=== PATIENT | male | born 1930 | race Caucasian/White ===

== ENCOUNTER 2017-08-22 13:40 | Emergency (ER) | payer MEDICARE, OTHER ==
[2017-08-22 13:54] VITALS: BP 144/74
[2017-08-22] MEDS ORDERED: predniSONE 20 MG Tab PO ONE (16:04)
--- NOTE | 2017-08-22 16:05 | EDM.PDOC ---
ED HPI GENERAL MEDICAL PROBLEM - General Chief Complaint: Lower Extremity Injury/Pain Stated Complaint: HIP PAIN Time Seen by Provider: 08/22/17 13:55 Source of Information: Reports: Patient, RN Notes Reviewed - History of Present Illness INITIAL COMMENTS - FREE TEXT/NARRATIVE: 87-year-old male comes in with bilateral hip and bilateral low back discomfort. Have history of osteoarthritis he has had previous right hip replacement quite a few years ago. There's been no recent fall. In having worsening pain that he he believes is related to his hips. However when asked where the discomfort is he points to his bilateral low back with discomfort that then radiates around to the groin area of both hips. The pain is especially bad if he tries to twist or torn when standing or walking. Dates that if he is very careful with his movement, does not twist or turn then he "does okay". He already is taking Tylenol twice a day. He is further cortisone injections can be quite helpful and that is what he would like today to "get rid of his pain". He states he does take occasional Aleve and that we'll give him good relief for a day or so but he does not feel comfortable taking that on a regular basis. Of note he is already on antacid medication for his stomach. he is on multiple meds for hypertension and also on Plavix in addition to a few other medications as well, see complete list for details. Bilateral Hip Pain Score (Numeric/FACES): 3 - Related Data Allergies Allergy/AdvReac Type Severity Reaction Status Date / Time No Known Allergies Allergy Verified 08/22/17 13:53 Home Meds: Home Meds Furosemide [Lasix] 20 mg PO DAILY 03/27/14 [History] Levothyroxine [Synthroid] 75 mcg PO DAILY 03/27/14 [History] Losartan [Cozaar] 50 mg PO DAILY 03/27/14 [History] Sertraline [Zoloft] 50 mg PO DAILY 03/27/14 [History] Gabapentin 600 mg PO BEDTIME 03/19/15 [History] Acetaminophen/Diphenhydramine [Tylenol Pm Ex-Strength Caplet] 2 tab PO BEDTIME 08/22/17 [History] Aspirin 325 mg PO DAILY 08/22/17 [History] Carvedilol [Coreg] 3.125 mg PO BID 08/22/17 [History] Clopidogrel [Plavix] 75 mg PO DAILY 08/22/17 [History] Docusate Sodium [Colace] 200 mg PO DAILY 08/22/17 [History] Ferrous Sulfate 325 mg PO DAILY 08/22/17 [History] Isosorbide Mononitrate [Ismo] 30 mg PO BEDTIME 08/22/17 [History] Magnesium Hydroxide [Milk of Magnesia] 5 ml PO DAILY PRN 08/22/17 [History] Pantoprazole [ProTONIX] 40 mg PO BID 08/22/17 [History] Prednisone [IJD: predniSONE] 20 mg PO QAM #7 tab 08/22/17 [Rx] Rosuvastatin Calcium 20 mg PO DAILY 08/22/17 [History] Tamsulosin [Flomax] 0.4 mg PO BEDTIME 08/22/17 [History] Past Medical History HEENT History: Reports: Impaired Vision Other HEENT History: reading glasses Cardiovascular History: Reports: Angina, High Cholesterol, Hypertension, Other ( See Below) Other Cardiovascular History: atherosclerotic heart disease Respiratory History: Reports: PE Gastrointestinal History: Reports: GERD, Inflammatory Bowel Disease Other Gastrointestinal History: colitis, hernia Genitourinary History: Reports: Chronic Renal Insuffiency Musculoskeletal History: Reports: None Psychiatric History: Reports: Depression Endocrine/Metabolic History: Reports: Hypothyroidism, Obesity/BMI 30+ - Past Surgical History HEENT Surgical History: Reports: Cataract Surgery Respiratory Surgical History: Reports: None GI Surgical History: Reports: Appendectomy, Cholecystectomy, Hernia, Abdominal Endocrine Surgical History: Reports: None Musculoskeletal Surgical History: Reports: Hip Replacement Social & Family History - Family History Family Medical History: Noncontributory - Tobacco Use Smoking Status *Q: Former Smoker Years of Tobacco use: 6 Packs/Tins Daily: 0.5 Used Tobacco, but Quit: Yes Month Tobacco Last Used: 60 years Second Hand Smoke Exposure: No - Caffeine Use Caffeine Use: Reports: Coffee Other Caffeine Use: one daily - Alcohol Use Days Per Week of Alcohol Use: 0 - Recreational Drug Use Recreational Drug Use: No Review of Systems - Review of Systems Review Of Systems: See Below Constitutional: Denies: Chills, Fever Mouth/Throat: Reports: No Symptoms Respiratory: Reports: Shortness of Breath (insertional) Cardiovascular: Denies: Chest Pain GI/Abdominal: Denies: Abdominal Pain, Nausea, Vomiting Musculoskeletal: Reports: Back Pain, Joint Pain (bilateral low backbilateral hip ) Skin: Reports: No Symptoms Neurological: Denies: Trouble Speaking, Weakness ED EXAM, GENERAL - Physical Exam Exam: See Below General Appearance: Alert, No Apparent Distress Throat/Mouth: Normal Inspection, Normal Oropharynx Head: Atraumatic. No: Facial Swelling Neck: Supple, Full Range of Motion Respiratory/Chest: No Respiratory Distress, Lungs Clear, Normal Breath Sounds Cardiovascular: Regular Rate, Rhythm GI/Abdominal: Soft, Non-Tender Back Exam: Paraspinal Tenderness (there is some tenderness of his bilateral low back over the sacroiliac joint area bilaterally). No: Vertebral Tenderness Extremities: Normal Range of Motion (good hip range of motion bilaterally with minimal discomfort), Pedal Edema (trace bilateral). No: Leg Pain (he is nontender over the hips) Neurological: Oriented, No Motor/Sensory Deficits Skin Exam: Warm, Dry, Normal Color Course - Vital Signs Last Recorded V/S: Last Vital Signs Temp 97.6 F 08/22/17 13:48 Pulse 69 08/22/17 13:48 Resp 20 08/22/17 13:48 BP 144/74 H 08/22/17 13:48 Pulse Ox 90 L 08/22/17 13:48 - Orders/Labs/Meds Orders: Active Orders 24 hr Category Date Time Status Hip Min 2V or 3V Lt [CR] Stat Exams 08/22/17 14:16 Taken Hip Min 2V or 3V Rt [CR] Stat Exams 08/22/17 14:16 Taken Meds: Medications Discontinued Medications Generic Name Dose Route Start Last Admin Trade Name Tony PRN Reason Stop Dose Admin Hydrocodone Bitart/Acetaminophen 1 tab 08/22/17 16:39 08/22/17 16:48 Empire 325-5 Mg PO 08/22/17 16:40 1 tab ONETIME ONE Administration Prednisone 40 mg 08/22/17 16:04 08/22/17 16:11 Prednisone PO 08/22/17 16:05 40 mg ONETIME ONE Administration - Re-Assessments/Exams Free Text/Narrative Re-Assessment/Exam: 08/22/17 16:03 x-rays show right total hip with no apparent abnormality, left hip shows some very mild degenerative change nothing that looks super severe. Is inquiring about getting cortisone shots. With informed him that I do not do that procedure but will start him on some oral prednisone for now. We'll see if we can get an appointment for him to see Dr. Brown, his Orthopedist. 08/22/17 17:20. we were able to get him appointment for next week, August 29 8: 15 AM he is requesting something more powerful for pain, have provided a prescription for hydrocodone 03/28/25 to take one half tablet every 8-12 hours if needed for severe pain. Departure - Departure Time of Disposition: 16:21 Disposition: Home, Self-Care 01 Condition: Fair Clinical Impression: Hip pain, bilateral Low back pain Qualifiers: Chronicity: acute Back pain laterality: bilateral Sciatica presence: without sciatica Qualified Code(s): M54.5 - Low back pain - Discharge Information Prescriptions: Prednisone [IJD: predniSONE] 20 mg PO QAM #7 tab Instructions: Hip Pain, Back Pain, Adult Referrals: Anton Jones MD [Primary Care Provider] - Forms: ED Department Discharge Additional Instructions: continue to use walker, continue Tylenol 1000 mg twice daily, prednisone as prescribed. You've been given 40 mg orally while here in the ED today, then take 20 mg every morning starting tomorrow for [address] Brown, Orthopedist next August 29, 8:15 AM. You may take hydrocodone one half tablet every 8 hours are up to 3 times daily if needed for severe pain not relieved by Tylenol and the newly prescribed prednisone. - My Orders Last 24 Hours: My Active Orders 08/22/17 14:16 Hip Min 2V or 3V Lt [CR] Stat Hip Min 2V or 3V Rt [CR] Stat - Assessment/Plan Last 24 Hours: My Active Orders 08/22/17 14:16 Hip Min 2V or 3V Lt [CR] Stat Hip Min 2V or 3V Rt [CR] Stat
[2017-08-22] MEDS ORDERED: Acetaminophen/HYDROcodone 325-5 MG Tab PO ONE (16:39)
--- NOTE | 2017-08-24 07:58 | CR ---
Right hip: AP and frog leg lateral views of the right hip were obtained. Comparison: Previous right hip study of 10/06/15. Right hip prosthesis is seen. Components are aligned. Orthopedic screws seen within the superior acetabulum. Plate is identified along the lateral aspect of the proximal femur. These findings are stable. Nothing acute is identified. Impression: 1. Stable right hip prosthesis and other stable orthopedic hardware. 2. Nothing acute is appreciated on two-view right hip exam. Diagnostic code #2
--- NOTE | 2017-08-24 08:52 | CR ---
Left hip: AP and frog-leg lateral views of the left hip were obtained. Comparison: No prior left hip exam. Joint space within the left hip is preserved. No fracture or other bony abnormality is identified. Impression: 1. No abnormality is identified on two-view left hip exam. Diagnostic code #1
== END 2017-08-22 17:10 | disposition home or self-care (01) ==
LOC: JD.ED 13:40
DX: M25.551 Pain in right hip (principal); M25.552 Pain in left hip; M54.5 Low back pain; I12.9 Hypertensive chronic kidney disease with stage 1 through stage 4 chronic kidney disease, or unspecified chronic kidney disease; N18.9 Chronic kidney disease, unspecified; K21.9 Gastro-esophageal reflux disease without esophagitis; E03.9 Hypothyroidism, unspecified; E66.9 Obesity, unspecified; E78.00 Pure hypercholesterolemia, unspecified; Z86.711 Personal history of pulmonary embolism; Z98.49 Cataract extraction status, unspecified eye; Z90.49 Acquired absence of other specified parts of digestive tract; Z96.649 Presence of unspecified artificial hip joint; Z98.890 Other specified postprocedural states; Z87.891 Personal history of nicotine dependence; Z79.02 Long term (current) use of antithrombotics/antiplatelets; Z79.899 Other long term (current) drug therapy
CPT/HCPCS: 73502; 99283; A9270

== ENCOUNTER 2017-08-31 02:11 | Inpatient (IN) | payer MEDICARE, OTHER ==
[2017-08-31] MEDS ORDERED: Sodium Chloride 0.9% 1,000 ML IV ONE ×2 (03:03→04:22)
--- NOTE | 2017-08-31 03:03 | EDM.PDOC ---
ED HPI GENERAL MEDICAL PROBLEM - General Chief Complaint: Gastrointestinal Problem Stated Complaint: [facility] Time Seen by Provider: 08/31/17 02:33 Source of Information: Reports: Patient, RN Notes Reviewed History Limitations: Reports: Physical Impairment (Hard of hearing) - History of Present Illness INITIAL COMMENTS - FREE TEXT/NARRATIVE: The patient states that he passed dark red blood, mixed with stool, around 17: 00 tonight. He had a second episode sometime later. He has had some abdominal cramps, but has not had any diarrhea. He denies dyspnea, chest pain, or lightheadedness. The patient reports to similar episodes in the past, but he is not sure when, other than "years ago". He states that a workup was done both times, but the cause of the bleeding was not found. The patient has a history of ulcerative colitis, but states that these symptoms are distinctly different than an ulcerative colitis flare. The patient states that he was just started on nabumetone per Dr. Rodriguez. He took his first dose yesterday morning, and a second dose tonight. The patient's PCP is Dr. Jones. Lower Abdomen Pain Score (Numeric/FACES): 8 - Related Data Allergies Allergy/AdvReac Type Severity Reaction Status Date / Time No Known Allergies Allergy Verified 08/22/17 13:53 Home Meds: Home Meds Furosemide [Lasix] 20 mg PO DAILY 03/27/14 [History] Levothyroxine [Synthroid] 75 mcg PO DAILY 03/27/14 [History] Losartan [Cozaar] 50 mg PO DAILY 03/27/14 [History] Sertraline [Zoloft] 50 mg PO DAILY 03/27/14 [History] Gabapentin 600 mg PO BEDTIME 03/19/15 [History] Acetaminophen/Diphenhydramine [Tylenol Pm Ex-Strength Caplet] 2 tab PO BEDTIME 08/22/17 [History] Aspirin 325 mg PO DAILY 08/22/17 [History] Carvedilol [Coreg] 3.125 mg PO BID 08/22/17 [History] Clopidogrel [Plavix] 75 mg PO DAILY 08/22/17 [History] Docusate Sodium [Colace] 200 mg PO DAILY 08/22/17 [History] Ferrous Sulfate 325 mg PO DAILY 08/22/17 [History] Isosorbide Mononitrate [Ismo] 30 mg PO BEDTIME 08/22/17 [History] Magnesium Hydroxide [Milk of Magnesia] 5 ml PO DAILY PRN 08/22/17 [History] Pantoprazole [ProTONIX] 40 mg PO BID 08/22/17 [History] Rosuvastatin Calcium 20 mg PO DAILY 08/22/17 [History] Tamsulosin [Flomax] 0.4 mg PO BEDTIME 08/22/17 [History] Nabumetone 500 gm PO BID 08/31/17 [History] Past Medical History HEENT History: Reports: Impaired Vision Other HEENT History: reading glasses Cardiovascular History: Reports: High Cholesterol, Hypertension Respiratory History: Reports: PE Gastrointestinal History: Reports: GERD, GI Bleed, Inflammatory Bowel Disease ( Ulcerative colitis) Genitourinary History: Reports: BPH Psychiatric History: Reports: Depression Endocrine/Metabolic History: Reports: Hypothyroidism, Obesity/BMI 30+ - Past Surgical History HEENT Surgical History: Reports: Cataract Surgery GI Surgical History: Reports: Appendectomy, Cholecystectomy, Hernia, Abdominal Musculoskeletal Surgical History: Reports: Hip Replacement (right) Social & Family History - Family History Family Medical History: Noncontributory - Tobacco Use Smoking Status *Q: Former Smoker Years of Tobacco use: 6 Packs/Tins Daily: 0.5 Month Tobacco Last Used: 0 Second Hand Smoke Exposure: No - Caffeine Use Caffeine Use: Reports: Coffee Other Caffeine Use: one daily - Alcohol Use Alcohol Use History: Yes Alcohol Use Frequency: Socially - Recreational Drug Use Recreational Drug Use: No - Living Situation & Occupation Living situation: Reports: , Assisted Living ([facility]) Occupation: Retired ED ROS GENERAL - Review of Systems Review Of Systems: See Below Constitutional: Reports: No Symptoms HEENT: Reports: No Symptoms Respiratory: Reports: No Symptoms Cardiovascular: Reports: No Symptoms Endocrine: Reports: No Symptoms GI/Abdominal: Reports: No Symptoms : Reports: No Symptoms Musculoskeletal: Reports: No Symptoms Skin: Reports: No Symptoms Neurological: Reports: No Symptoms Psychiatric: Reports: No Symptoms Hematologic/Lymphatic: Reports: No Symptoms Immunologic: Reports: No Symptoms ED EXAM, GI/ABD - Physical Exam Exam: See Below Exam Limited By: No Limitations General Appearance: Alert, WD/WN, No Apparent Distress Eyes: Bilateral: Normal Appearance, EOMI Ears: Normal External Exam, Hearing Grossly Normal Nose: Normal Inspection, No Blood Throat/Mouth: Normal Inspection, Normal Lips, Normal Voice, No Airway Compromise Head: Atraumatic, Normocephalic Neck: Normal Inspection, Full Range of Motion Respiratory/Chest: No Respiratory Distress, Lungs Clear, Normal Breath Sounds, No Accessory Muscle Use Cardiovascular: Normal Peripheral Pulses, Regular Rate, Rhythm, No Gallop, No JVD, No Murmur, No Rub GI/Abdominal Exam: Normal Bowel Sounds, Soft, Non-Tender, No Organomegaly, No Distention, No Abnormal Bruit, No Mass, Pelvis Stable, Other (Obese) (Male) Exam: Deferred Rectal (Males) Exam: Normal Rectal Tone, Bloody Stool, Heme + Stool, Hemorrhoids (non-thrombosed, on left) Back Exam: Normal Inspection, Full Range of Motion. No: CVA Tenderness (L), CVA Tenderness (R) Extremities: Normal Inspection, Normal Range of Motion, Normal Capillary Refill Neurological: Alert, Oriented, Normal Cognition, No Motor/Sensory Deficits Psychiatric: Normal Affect Skin Exam: Warm, Dry, Intact, Normal Color, No Rash Course - Vital Signs Last Recorded V/S: Last Vital Signs Temp 36.4 C 08/31/17 02:14 Pulse 77 08/31/17 02:14 Resp 16 08/31/17 02:14 BP 130/62 08/31/17 02:14 Pulse Ox 93 L 08/31/17 02:14 Orthostatic Blood Pressure [ 128/64 Standing] Orthostatic Blood Pressure [ 113/69 Sitting] Orthostatic Blood Pressure [ 95/71 Supine] - Orders/Labs/Meds Orders: Active Orders 24 hr Category Date Time Status Orthostatic Vital Signs [RC] STAT Care 08/31/17 02:55 Active Orthostatic Vital Signs [RC] STAT Care 08/31/17 03:03 Active Orthostatic Vital Signs [RC] STAT Care 08/31/17 04:22 Active Labs: Laboratory Tests 08/31/17 08/31/17 08/31/17 Range/Units 02:30 02:30 02:30 WBC 11.33 H (4.23-9.07) K/mm3 RBC 5.01 (4.63-6.08) M/mm3 Hgb 13.8 (13.7-17.5) gm/L Hct 43.6 (40.1-51.0) % MCV 87.0 (79.0-92.2) fl MCH 27.5 (25.7-32.2) pg MCHC 31.7 L (32.2-35.5) g/dl RDW Std Deviation 47.3 H (35.1-43.9) fL Plt Count 251 (163-337) K/mm3 MPV 10.5 (9.4-12.3) fl Neutrophils % (Manual) 74 H (40-60) % Band Neutrophils % 0 (0-10) % Lymphocytes % (Manual) 24 (20-40) % Atypical Lymphs % 0 % Monocytes % (Manual) 2 (2-10) % Eosinophils % (Manual) 0 L (0.8-7.0) % Basophils % (Manual) 0 L (0.2-1.2) Platelet Estimate Adequate RBC Morph Comment Normal PT 11.1 (8.0-13.0) SECONDS INR 1.02 APTT 29 (22-36) SECONDS Sodium 143 (136-145) mEq/L Potassium 4.7 (3.5-5.1) mEq/L Chloride 108 H (98-107) mEq/L Carbon Dioxide 27 (21-32) mEq/L Anion Gap 12.7 (5-15) BUN 36 H (7-18) mg/dL Creatinine 1.6 H (0.7-1.3) mg/dL Est Cr Clr Drug Dosing 28.80 mL/min Estimated GFR (MDRD) 41 (>60) mL/min BUN/Creatinine Ratio 22.5 H (14-18) Glucose 132 H (83-115) mg/dL Calcium 8.1 L (8.5-10.1) mg/dL Total Bilirubin 0.6 (0.2-1.0) mg/dL AST 17 (15-37) U/L ALT 16 (16-63) U/L Alkaline Phosphatase 61 (46-116) U/L Total Protein 6.1 L (6.4-8.2) g/dl Albumin 2.9 L (3.4-5.0) g/dl Globulin 3.2 gm/dL Albumin/Globulin Ratio 0.9 L (1-2) Meds: Medications Discontinued Medications Generic Name Dose Route Start Last Admin Trade Name Freq PRN Reason Stop Dose Admin Sodium Chloride 1,000 mls @ 999 mls/hr 08/31/17 03:03 08/31/17 03:09 Normal Saline IV 08/31/17 04:03 999 mls/hr ONETIME ONE Administration Sodium Chloride 1,000 mls @ 999 mls/hr 08/31/17 04:22 08/31/17 04:25 Normal Saline IV 08/31/17 05:22 999 mls/hr ONETIME ONE Administration - Re-Assessments/Exams Free Text/Narrative Re-Assessment/Exam: 08/31/17 03:02 The patient is orthostatic. I will order IV fluid bolus and recheck orthostatics. 08/31/17 04:23 Following 1 L of normal saline, the patient is still orthostatic. I have ordered a second liter of normal saline, and repeat orthostatics. 08/31/17 05:33 After a second liter of normal saline, the patient is no longer orthostatic. 08/31/17 05:35 The patient's BUN/Cr is modestly elevated at 36/1.6. It was similar at 20/1.6 on 12/12/2016. Case discussed with Dr. Serna at 05:34. He agrees to admit the patient to telemetry. I will order a CBC for the morning. Departure - Departure Time of Disposition: 05:36 Disposition: Admitted As Inpatient 65 Condition: Fair Clinical Impression: Lower GI bleed, Orthostatic hypotension - Discharge Information Referrals: PCP,None [Primary Care Provider] - - My Orders Last 24 Hours: My Active Orders 08/31/17 02:55 Orthostatic Vital Signs [RC] STAT 08/31/17 03:03 Orthostatic Vital Signs [RC] STAT 08/31/17 04:22 Orthostatic Vital Signs [RC] STAT - Assessment/Plan Last 24 Hours: My Active Orders 08/31/17 02:55 Orthostatic Vital Signs [RC] STAT 08/31/17 03:03 Orthostatic Vital Signs [RC] STAT 08/31/17 04:22 Orthostatic Vital Signs [RC] STAT
[2017-08-31] MEDS ORDERED: LORazepam 2 MG/ML MDV IV PRN (07:04)
[2017-08-31] MEDS ORDERED: Albuterol 0.083% 2.5 MG/3 ML Neb Soln NEB PRN (07:04)
[2017-08-31] MEDS ORDERED: Promethazine 12.5 MG in Sodium Chloride 0.9% 50 ML IV PRN (07:04)
[2017-08-31] MEDS ORDERED: HYDROmorphone 0.5 MG/0.5 ML Syringe IVPUSH PRN (07:04)
[2017-08-31] MEDS ORDERED: Acetaminophen 325 MG Tab PO PRN (07:04)
[2017-08-31] MEDS ORDERED: Ondansetron 4 MG/2 ML SDV IV PRN (07:04)
[2017-08-31] MEDS ORDERED: Magnesium Hydroxide 400 MG/5 ML Susp 30 ML Cup PO PRN (07:08)
--- NOTE | 2017-08-31 07:12 | PCM.HP ---
H&P History of Present Illness - General Date of Service: 08/31/17 Admit Problem/Dx: Admission Diagnosis/Problem Admission Diagnosis/Problem GI bleed not requiring more than 4 units of blood in 24 hours, ICU, or surgery Source of Information: Patient, Family, Old Records, Provider, RN Notes Reviewed History Limitations: Reports: No Limitations - History of Present Illness Initial Comments - Free Text/Narative: This is an 87 year old elderly pleasant white male with past medical history of impaired vision, hypertension, hypercholesterolemia, history of PE, GERD, history of GI bleed, non-specific colitis, hypothyroidism, BPH, depression, and obesity who presents to the emergency department with complains of rectal bleed that started last night. He had 2 episode of rectal bleed prior to presentation to the emergency department and again while he was being evaluated in ED. He reports some abdominal cramps but denies any diarrhea or constipation. No shortness of breath, chest pain, dizziness, or lightheadedness. Patient carries a past medical history of GI bleed. He underwent upper and lower endoscopy in [address] Enamorado with findings of gastritis, GERD , diverticulosis, nonspecific colitis, and external hemorrhoids. According to patient he has done well since then. His acute rectal bleed just started yesterday after he to took an NSAID (Nabumetone) that was prescribed to him by specialist for his chronic OA/DJD. His risk factor includes being on dual antiplatelet therapy for his recent stent placement 4 done earlier this year in [facility]. He is not on any anti-coags. His initial workup in the emergency department shows a CBC remarkable for WBC of 11.33, MCHC of 31.7, and neutrophils of 74%. His chemistry is remarkable for chloride of 108, BUN of 36, creatinine 1.6, glucose of 132, calcium 8.1, total protein of 6.1, and albumin of 2.9. He was positive for orthostatic hypotension on initial assessment in the emergency department. Patient received initial resuscitation in the emergency department before he was sent to the floor for further management. He is being admitted for management acute GI bleed. He is DNR/DNI. Lower Abdomen Pain Score (Numeric/FACES): 8 - Related Data Allergies/Adverse Reactions: Allergies Allergy/AdvReac Type Severity Reaction Status Date / Time No Known Allergies Allergy Verified 08/22/17 13:53 Home Medications: Home Meds Furosemide [Lasix] 20 mg PO DAILY 03/27/14 [History] Levothyroxine [Synthroid] 75 mcg PO DAILY 03/27/14 [History] Losartan [Cozaar] 50 mg PO DAILY 03/27/14 [History] Sertraline [Zoloft] 50 mg PO DAILY 03/27/14 [History] Gabapentin 600 mg PO BEDTIME 03/19/15 [History] Acetaminophen/Diphenhydramine [Tylenol Pm Ex-Strength Caplet] 2 tab PO BEDTIME 08/22/17 [History] Aspirin 325 mg PO DAILY 08/22/17 [History] Carvedilol [Coreg] 3.125 mg PO BID 08/22/17 [History] Clopidogrel [Plavix] 75 mg PO DAILY 08/22/17 [History] Docusate Sodium [Colace] 200 mg PO DAILY 08/22/17 [History] Ferrous Sulfate 325 mg PO DAILY 08/22/17 [History] Isosorbide Mononitrate [Ismo] 30 mg PO BEDTIME 08/22/17 [History] Magnesium Hydroxide [Milk of Magnesia] 5 ml PO DAILY PRN 08/22/17 [History] Pantoprazole [ProTONIX] 40 mg PO BID 08/22/17 [History] Rosuvastatin Calcium 20 mg PO DAILY 08/22/17 [History] Tamsulosin [Flomax] 0.4 mg PO BEDTIME 08/22/17 [History] Nabumetone 500 gm PO BID 08/31/17 [History] Past Medical History HEENT History: Reports: Impaired Vision Other HEENT History: reading glasses Cardiovascular History: Reports: High Cholesterol, Hypertension Other Cardiovascular History: atherosclerotic heart disease Respiratory History: Reports: PE Gastrointestinal History: Reports: GERD, GI Bleed, Inflammatory Bowel Disease ( Ulcerative colitis) Other Gastrointestinal History: colitis, hernia Genitourinary History: Reports: BPH Musculoskeletal History: Reports: None Psychiatric History: Reports: Depression Endocrine/Metabolic History: Reports: Hypothyroidism, Obesity/BMI 30+ - Past Surgical History HEENT Surgical History: Reports: Cataract Surgery GI Surgical History: Reports: Appendectomy, Cholecystectomy, Hernia, Abdominal Musculoskeletal Surgical History: Reports: Hip Replacement (right) Social & Family History - Family History Family Medical History: Noncontributory - Tobacco Use Smoking Status *Q: Never Smoker Years of Tobacco use: 6 Packs/Tins Daily: 0.5 Used Tobacco, but Quit: Yes Month Tobacco Last Used: 0 Second Hand Smoke Exposure: No - Caffeine Use Caffeine Use: Reports: Coffee Other Caffeine Use: one daily - Alcohol Use Days Per Week of Alcohol Use: 0 - Recreational Drug Use Recreational Drug Use: No - Living Situation & Occupation Living situation: Reports: , Assisted Living ([facility]) Occupation: Retired H&P Review of Systems - Review of Systems: Review Of Systems: See Below General: Denies: Fever, Chills, Malaise, Weakness, Fatigue HEENT: Reports: No Symptoms Pulmonary: Denies: Shortness of Breath Cardiovascular: Denies: Chest Pain Gastrointestinal: Reports: Other (Belly ache lower abdomen). Denies: Abdominal Pain, Nausea, Vomiting Genitourinary: Reports: Frequency, Urgency Musculoskeletal: Reports: Back Pain, Leg Pain (calves), Joint Pain, Other (Hip Pain) Skin: Denies: Cyanosis, Mottled, Pallor, Diaphoresis, Bruising, Pruritis, Rash, Erythema Psychiatric: Denies: Depression, Anxiety, Agitation, Hallucinations Neurological: Denies: Confusion, Dizziness, Syncope, Difficulty Walking, Weakness, Gait Disturbance Hematologic/Lymphatic: Denies: Anemia, Easy Bleeding Immunologic: Reports: No Symptoms Exam - Exam Exam: See Below - Vital Signs Vital Signs: Last Vital Signs Temp 36.4 C 08/31/17 02:14 Pulse 77 08/31/17 02:14 Resp 16 08/31/17 02:14 BP 130/62 08/31/17 02:14 Pulse Ox 93 L 08/31/17 02:14 Weight: 102.875 kg - Exam General: Alert, Oriented, Cooperative, Other (Obese) HEENT: Conjunctiva Clear, EACs Clear, Hearing Intact, Mucosa Moist & [place], Nares Patent, Normal Nasal Septum, Posterior Pharynx Clear, Pupils Equal, Pupils Reactive Neck: Supple, Trachea Midline, Full Range of Motion, Other (Short and thick). No: JVD Lungs: Clear to Auscultation, Normal Respiratory Effort Cardiovascular: Regular Rate, Regular Rhythm GI/Abdominal Exam: Normal Bowel Sounds, Soft, No Organomegaly, No Abnormal Bruit , No Mass, Tender (lower abdomen), Hernia, Other (Midline abdomnial scar). No: Guarding, Rigid, Rebound, Abnormal Bowel Sounds (Male) Exam: Deferred Rectal (Males) Exam: Deferred Back Exam: Normal Inspection, Decreased Range of Motion Extremities: Normal Inspection, Normal Range of Motion, No Pedal Edema, Normal Capillary Refill, Other (Tender on bilateral calf) Peripheral Pulses: 2+: Posterior Tibial (L), Posterior Tibial (R), Dorsalis Pedis (L), Dorsalis Pedis (R) Skin: Warm, Dry, Intact Neuro Extensive - Mental Status: Oriented x3, Normal Cognition, Memory Intact Neuro Extensive - Motor, Sensory, Reflexes: CN II-XII Intact, Normal Gait Psychiatric: Alert, Normal Affect, Normal Mood - Patient Data Result Diagrams: 08/31/17 02:30 08/31/17 02:30 *Q Meaningful Use (ADM) - VTE *Q VTE Criteria *Q: - Stroke *Q Stroke Criteria *Q: - AMI *Q AMI Criteria *Q: Problem List Initiated/Reviewed/Updated: Yes Orders Last 24hrs: Active Orders 24 hr Category Date Time Status Antiembolic Devices [RC] PER UNIT ROUTINE Care 08/31/17 07:06 Ordered Cardiac Monitoring [RC] CONTINUOUS Care 08/31/17 07:05 Ordered Height and Weight [RC] DAILY Care 08/31/17 07:04 Ordered Intake and Output [RC] QSHIFT Care 08/31/17 07:05 Ordered Oxygen Therapy [RC] PRN Care 08/31/17 07:04 Ordered RT Aerosol Therapy [RC] ASDIRECTED Care 08/31/17 07:07 Ordered Up With Assistance [RC] ASDIRECTED Care 08/31/17 07:04 Ordered Up ad Ethel [RC] ASDIRECTED Care 08/31/17 07:04 Ordered VTE/DVT Education [RC] PER UNIT ROUTINE Care 08/31/17 07:04 Ordered Vital Signs [RC] Q4H Care 08/31/17 07:04 Ordered Consult to Case Management [CONS] Routine Cons 08/31/17 07:07 Ordered Consult to Survey Questionnaire Designer [CONS] Routine Cons 08/31/17 07:07 Ordered Consult to Spiritual Care [CONS] Routine Cons 08/31/17 07:07 Ordered OT Evaluation and Treatment [CONS] Routine Cons 08/31/17 07:07 Ordered PT Evaluation and Treatment [CONS] Routine Cons 08/31/17 07:07 Ordered Clear Liquid Diet [DIET] Diet 08/31/17 Breakfast Ordered BASIC METABOLIC PANEL,BMP [CHEM] AM Lab 09/01/17 05:11 Ordered BASIC METABOLIC PANEL,BMP [CHEM] AM Lab 09/02/17 05:11 Ordered BASIC METABOLIC PANEL,BMP [CHEM] AM Lab 09/03/17 05:11 Ordered CBC WITH AUTO DIFF [HEME] AM Lab 09/01/17 05:11 Ordered CBC WITH AUTO DIFF [HEME] AM Lab 09/02/17 05:11 Ordered CBC WITH AUTO DIFF [HEME] AM Lab 09/03/17 05:11 Ordered MAGNESIUM [CHEM] AM Lab 09/01/17 05:11 Ordered MAGNESIUM [CHEM] AM Lab 09/02/17 05:11 Ordered MAGNESIUM [CHEM] AM Lab 09/03/17 05:11 Ordered Acetaminophen [Tylenol] Med 08/31/17 07:04 Ordered 650 mg PO Q4H PRN Acetaminophen/Diphenhydramine Med 08/31/17 21:00 Ordered 2 tab PO BEDTIME Acetaminophen/HYDROcodone [[place] 325-5 MG] Med 08/31/17 07:04 Ordered 1 tab PO Q4H PRN Albuterol [Proventil Neb Soln] Med 08/31/17 07:04 Ordered 2.5 mg NEB Q2H PRN Carvedilol [Coreg] Med 08/31/17 09:00 Ordered 3.125 mg PO BID Clopidogrel [Plavix] Med 08/31/17 09:00 Ordered 75 mg PO DAILY Ferrous Sulfate Med 08/31/17 09:00 Ordered 325 mg PO DAILY Gabapentin [Neurontin] Med 08/31/17 21:00 Ordered 600 mg PO BEDTIME HYDROmorphone [Dilaudid] Med 08/31/17 07:04 Ordered 0.25 mg IVPUSH Q2H PRN Isosorbide Mononitrate Med 08/31/17 21:00 Ordered 30 mg PO BEDTIME LORazepam [Ativan] Med 08/31/17 07:04 Ordered 0.25 mg IV Q6H PRN Levothyroxine [Synthroid] Med 08/31/17 09:00 Ordered 75 mcg PO DAILY Losartan [Cozaar] Med 08/31/17 09:00 Ordered 50 mg PO DAILY Magnesium Hydroxide [Milk of Magnesia] Med 08/31/17 07:08 Ordered 5 ml PO DAILY PRN Ondansetron [Zofran] Med 08/31/17 07:04 Ordered 4 mg IV Q6H PRN Pantoprazole [ProTONIX] Med 08/31/17 09:00 Ordered 40 mg PO BID Promethazine [Phenergan] 12.5 mg Med 08/31/17 07:04 Ordered Sodium Chloride 0.9% [Normal Saline] 50 ml IV Q6H Rosuvastatin Calcium [Rosuvastatin Calcium] Med 08/31/17 09:00 Ordered 20 mg PO DAILY Sertraline [Zoloft] Med 08/31/17 09:00 Ordered 50 mg PO DAILY Tamsulosin [Flomax] Med 08/31/17 21:00 Ordered 0.4 mg PO BEDTIME Temazepam [Restoril] Med 08/31/17 07:04 Ordered 7.5 mg PO BEDTIME PRN Antiembolic Hose [OM.PC] Per Unit Routine Oth 08/31/17 07:05 Ordered Resuscitation Status Routine Resus Stat 08/31/17 07:04 Ordered Assessment/Plan Comment:: Assessment/Plan: Acute: Rectal Bleed - Carries a hx/o GI Bleed S/p EGD/Colonoscopy [address] Enamorado: W/ findings of Gastritis, GERD, Polyps, Diverticulosis, Non-Specific Colitis, and External Hemorrhoids - Had 4 episode of rectal bleed: Bright Rectal Blood Per Rectum-2 episode at home and 2 in ED - Hgb on admission 13.8 - Risk Factors: On DAPT due to recent stent placement x 4 early this year and NSAID use for OA/DJD - He used to be on Aleve for OA/DJD: back pain and hips but was recently switched to Nabumetone 500 mg po BID by a specialist - Will obtain cardiac record see if we can safety stop one or both anti- platelets - Serial H/H - Offered GS consult but patient refused Orthostatic Hypotension - Likely secondary to GI Bleed - Currently hydrating - Will monitor Chronic: Impaired Vision HTN HLD CAD s/p Stents x 29 Nov 2016 Moderate GERD Hx/o Non-Specific Colitis (2013 S/p Colonoscopy) Diverticulosis BPH CKD Stage 3 Hypothyroidism OA/DJD Hx/o Ventral Hernia S/p Repair with Mesh Depression Obesity with BMI of 36.6 Plan: Admit to Med-Surge W/ Tele Routine Am Labs Resume Home Meds Duplex U/S for Bilateral Calf Pain Clear liquids for diet Obtain cardiology record in [facility] Serial H/H check PT/OT consult GI PPx: PPI DVT PPx: TEDS for now until DVT is ruled out Again he refused GS consult at this time SW/VIRGIL for d/c planning Code status: DNR/DNI
[2017-08-31] MEDS ORDERED: Aspirin 325 MG Tab.EC PO SCH (09:00)
[2017-08-31] MEDS: Sertraline 50 MG Tab PO SCH (10:19)
[2017-08-31] MEDS: Clopidogrel 75 MG Tab PO SCH (10:19)
[2017-08-31] MEDS: Ferrous Sulfate 325 MG Tab PO SCH (10:19)
[2017-08-31] MEDS: Losartan 25 MG Tab PO SCH (10:28)
[2017-08-31] MEDS: Carvedilol 3.125 MG Tab PO SCH ×2 (10:28→20:52)
[2017-08-31] MEDS: Acetaminophen/HYDROcodone 325-5 MG Tab PO PRN ×2 (10:41→15:56)
[2017-08-31] MEDS: Pantoprazole 40 MG Tab.CR PO SCH ×2 (10:42→18:10)
--- NOTE | 2017-08-31 10:46 | US ---
Bilateral lower extremity deep venous ultrasound: Duplex and color flow imaging was obtained of the right and left common femoral, proximal greater saphenous, superficial femoral, popliteal, posterior tibial and peroneal veins. Findings: Normal phasic flow, augmentation and compression are seen. Impression: 1. No evidence of deep venous thrombosis is seen within either the right or left lower extremity. Diagnostic code #1
[2017-08-31] MEDS: Levothyroxine 75 MCG Tab PO SCH (12:29)
[2017-08-31] MEDS: Sodium Chloride 0.9% 1,000 ML IV SCH ×3 (12:53→23:26)
--- NOTE | 2017-08-31 14:20 | PCM.CONS ---
H&P History of Present Illness - General Date of Service: 08/31/17 Admit Problem/Dx: Admission Diagnosis/Problem Admission Diagnosis/Problem GI bleed not requiring more than 4 units of blood in 24 hours, ICU, or surgery Source of Information: Patient History Limitations: Reports: No Limitations - History of Present Illness Initial Comments - Free Text/Narative: 87-year-old male was in his usual state of good health until a few days ago when he experienced lower abdominal crampy discomfort followed by the passage of blood clots. There was no previous history of pre-syncope or syncopal episodes. He denied palpitations and chest pains with this. He doesn't have chronic shortness of breath. He takes Plavix. Because of this he presented to the emergency room. He is 3 years status post colonoscopy and at the time there are several benign polyps found and removed. He also gives a history of stable ulcerative colitis. He has regular bowel movements and has not had recent diarrheal stools. This afternoon he complains of no abdominal pain. He is says his stools are clearing and returning to normal. He also stated that he wasn't interested in a colonoscopy. He stated that it wouldn't help. Since his admission hemoglobin of 13 they have been 112. He was admitted to the hospitalist service for stabilization and evaluation. He has remained asymptomatic and hemodynamically stable. I was asked to see him in consultation. Lower Abdomen Pain Score (Numeric/FACES): 8 - Related Data Allergies/Adverse Reactions: Allergies Allergy/AdvReac Type Severity Reaction Status Date / Time No Known Allergies Allergy Verified 08/22/17 13:53 Home Medications: Home Meds Furosemide [Lasix] 20 mg PO DAILY 03/27/14 [History] Levothyroxine [Synthroid] 75 mcg PO DAILY 03/27/14 [History] Losartan [Cozaar] 50 mg PO DAILY 03/27/14 [History] Sertraline [Zoloft] 50 mg PO DAILY 03/27/14 [History] Gabapentin 600 mg PO BEDTIME 03/19/15 [History] Acetaminophen/Diphenhydramine [Tylenol Pm Ex-Strength Caplet] 2 tab PO BEDTIME 08/22/17 [History] Aspirin 325 mg PO DAILY 08/22/17 [History] Carvedilol [Coreg] 3.125 mg PO BID 08/22/17 [History] Clopidogrel [Plavix] 75 mg PO DAILY 08/22/17 [History] Docusate Sodium [Colace] 200 mg PO DAILY 08/22/17 [History] Ferrous Sulfate 325 mg PO DAILY 08/22/17 [History] Isosorbide Mononitrate [Ismo] 30 mg PO BEDTIME 08/22/17 [History] Magnesium Hydroxide [Milk of Magnesia] 5 ml PO DAILY PRN 08/22/17 [History] Pantoprazole [ProTONIX] 40 mg PO BID 08/22/17 [History] Rosuvastatin Calcium 20 mg PO DAILY 08/22/17 [History] Tamsulosin [Flomax] 0.4 mg PO BEDTIME 08/22/17 [History] Nabumetone 500 gm PO BID 08/31/17 [History] Past Medical History HEENT History: Reports: Impaired Vision Other HEENT History: reading glasses Cardiovascular History: Reports: High Cholesterol, Hypertension Other Cardiovascular History: atherosclerotic heart disease Respiratory History: Reports: PE Gastrointestinal History: Reports: GERD, GI Bleed, Inflammatory Bowel Disease Other Gastrointestinal History: colitis, hernia Genitourinary History: Reports: BPH Musculoskeletal History: Reports: None Psychiatric History: Reports: Depression Endocrine/Metabolic History: Reports: Hypothyroidism, Obesity/BMI 30+ - Infectious Disease History Infectious Disease History: Reports: None - Past Surgical History HEENT Surgical History: Reports: Cataract Surgery GI Surgical History: Reports: Appendectomy, Cholecystectomy, Hernia, Abdominal Musculoskeletal Surgical History: Reports: Hip Replacement Other Musculoskeletal Surgeries/Procedures:: R Hip Social & Family History - Family History Family Medical History: Noncontributory - Tobacco Use Smoking Status *Q: Never Smoker Years of Tobacco use: 6 Packs/Tins Daily: 0.5 Used Tobacco, but Quit: Yes Month Tobacco Last Used: 0 Second Hand Smoke Exposure: No - Caffeine Use Caffeine Use: Reports: Coffee Other Caffeine Use: one daily - Alcohol Use Days Per Week of Alcohol Use: 0 - Recreational Drug Use Recreational Drug Use: No - Living Situation & Occupation Living situation: Reports: , Assisted Living ([facility]) Occupation: Retired H&P Review of Systems - Review of Systems: Review Of Systems: ROS reveals no pertinent complaints other than HPI. Exam - Exam Exam: See Below - Vital Signs Vital Signs: Last Vital Signs Temp 36.6 C 08/31/17 12:55 Pulse 65 10/06/17 12:55 Resp 18 08/31/17 12:55 BP 121/86 08/31/17 12:55 Pulse Ox 90 L 08/31/17 12:55 Weight: 102.875 kg - Exam Quality Assessment: Supplemental Oxygen General: Alert, Oriented, Cooperative Neck: Supple, Trachea Midline Lungs: Normal Respiratory Effort GI/Abdominal Exam: Soft, Non-Tender (Male) Exam: Deferred Rectal (Males) Exam: Deferred Extremities: Normal Inspection Skin: Warm, Dry, Intact Psychiatric: Alert, Normal Affect, Normal Mood - Patient Data Lab Results Last 24 hrs: Laboratory Results - last 24 hr 08/31/17 08/31/17 08/31/17 Range/Units 10:10 11:05 12:15 WBC 10.85 H (4.23-9.07) K/mm3 RBC 4.10 L (4.63-6.08) M/mm3 Hgb 11.4 L (13.7-17.5) gm/L Hct 36.4 L (40.1-51.0) % MCV 88.8 (79.0-92.2) fl MCH 27.8 (25.7-32.2) pg MCHC 31.3 L (32.2-35.5) g/dl RDW Std Deviation 47.0 H (35.1-43.9) fL Plt Count 217 (163-337) K/mm3 MPV 9.5 (9.4-12.3) fl Neut % (Auto) 75.4 H (34.0-67.9) % Lymph % (Auto) 14.1 L (21.8-53.1) % Gaines % (Auto) 9.0 (5.3-12.2) % Eos % (Auto) 0.8 (0.8-7.0) Baso % (Auto) 0.2 (0.1-1.2) % Neut # (Auto) 8.18 H (1.78-5.38) K/mm3 Lymph # (Auto) 1.53 (1.32-3.57) K/mm3 Gaines # (Auto) 0.98 H (0.30-0.82) K/mm3 Eos # (Auto) 0.09 (0.04-0.54) K/mm3 Baso # (Auto) 0.02 (0.01-0.08) K/mm3 POC Glucose 157 H (83-110) mg/dL MRSA (PCR) Negative 08/31/17 Range/Units 12:16 WBC (4.23-9.07) K/mm3 RBC (4.63-6.08) M/mm3 Hgb 11.2 L (13.7-17.5) gm/L Hct 35.4 L (40.1-51.0) % MCV (79.0-92.2) fl MCH (25.7-32.2) pg MCHC (32.2-35.5) g/dl RDW Std Deviation (35.1-43.9) fL Plt Count (163-337) K/mm3 MPV (9.4-12.3) fl Neut % (Auto) (34.0-67.9) % Lymph % (Auto) (21.8-53.1) % Gaines % (Auto) (5.3-12.2) % Eos % (Auto) (0.8-7.0) Baso % (Auto) (0.1-1.2) % Neut # (Auto) (1.78-5.38) K/mm3 Lymph # (Auto) (1.32-3.57) K/mm3 Gaines # (Auto) (0.30-0.82) K/mm3 Eos # (Auto) (0.04-0.54) K/mm3 Baso # (Auto) (0.01-0.08) K/mm3 POC Glucose (83-110) mg/dL MRSA (PCR) Result Diagrams: 08/31/17 12:16 08/31/17 02:30 Consult PN Assessment/Plan Procedures: Procedures AGENT NOS ASSAY W/OPTIC (03/30/14) ASSAY OF CK (CPK) (03/19/15) ASSAY OF NATRIURETIC PEPTIDE (12/12/16) ASSAY OF TROPONIN QUANT (12/12/16) C DIFF AMPLIFIED PROBE (03/30/14) CHEST X-RAY 1 VIEW FRONTAL (03/19/15) CHEST X-RAY 2VW FRONTAL&LATL (12/12/16) CINE/VID X-RAY THROAT/ESOPH (07/11/17) COLONOSCOPY AND BIOPSY (03/30/14) COMPLETE CBC W/AUTO DIFF WBC (12/12/16) COMPREHEN METABOLIC PANEL (12/12/16) CREATINE MB FRACTION (06/10/15) CRYPTOSPORIDIUM AG IA (03/30/14) CT HEAD/BRAIN W/O DYE (03/19/15) CT SOFT TISSUE NECK W/O DYE (06/10/15) EGD BIOPSY SINGLE/MULTIPLE (03/30/14) ELECTROCARDIOGRAM TRACING (12/12/16) EMERGENCY DEPT VISIT (08/22/17) EMERGENCY DEPT VISIT (12/12/16) EMERGENCY DEPT VISIT (08/12/16) EMERGENCY DEPT VISIT (08/09/16) EMERGENCY DEPT VISIT (10/06/15) EMERGENCY DEPT VISIT (06/10/15) EMERGENCY DEPT VISIT (03/19/15) EXTRACRANIAL BILAT STUDY (03/23/15) FIBRIN DEGRADATION QUANT (08/09/16) GIARDIA AG IA (03/30/14) LEUKOCYTE ASSESSMENT FECAL (03/30/14) MEASURE BLOOD OXYGEN LEVEL (03/19/15) MOTION FLUOROSCOPY/SWALLOW (07/11/17) MRI CHEST SPINE W/O DYE (06/09/15) PROTHROMBIN TIME (06/10/15) PT EVALUATION (03/19/15) ROUTINE VENIPUNCTURE (12/12/16) STOOL CULTR AEROBIC BACT EA (03/30/14) THER/PROPH/DIAG INJ IV PUSH (06/10/15) TISSUE EXAM BY PATHOLOGIST (03/30/14) TTE W/DOPPLER COMPLETE (03/23/15) URINALYSIS AUTO W/SCOPE (03/19/15) VANOMYCIN DNA AMP PROBE (03/30/14) X-RAY EXAM HIP UNI 2-3 VIEWS (08/22/17) X-RAY EXAM KNEE 4 OR MORE (10/06/15) X-RAY EXAM OF ABDOMEN (08/12/16) X-RAY EXAM OF HIP (10/06/15) X-RAY EXAM OF WRIST (10/06/15) (1) Lower GI bleed SNOMED Code(s): 21875498 Code(s): K92.2 - GASTROINTESTINAL HEMORRHAGE, UNSPECIFIED Priority: Medium Current Visit: Yes Assessment:: Clinically stable. The patient is not interested in a colonoscopy at this time. If he remains stable then he can be discharged to follow-up with his primary care provider who he would like to discuss the indication for a diagnostic colonoscopy. This can be arranged electively from an outpatient basis. Problem List Initiated/Reviewed/Updated: Yes Plan: Medical management per the hospitalist service.
--- NOTE | 2017-08-31 16:23 | PCM.PN ---
- General Info Date of Service: 08/31/17 Admission Dx/Problem (Free Text): Admission Diagnosis/Problem Admission Diagnosis/Problem GI bleed not requiring more than 4 units of blood in 24 hours, ICU, or surgery Subjective Update: 87-year-old man who was admitted for evaluation of complaints of bleeding per rectum. Patient was seen and examined bedside with the nurse. He complained of weakness but otherwise denies any other issues. Hemoglobin on admission was 11.4. Surgery consult was requested for possible endoscopy and patient was seen by Dr. Ortega. Functional Status: Reports: Pain Controlled, Tolerating Diet. Denies: New Symptoms - Review of Systems General: Reports: Weakness HEENT: Reports: No Symptoms Pulmonary: Reports: No Symptoms Cardiovascular: Reports: No Symptoms Gastrointestinal: Reports: No Symptoms Genitourinary: Reports: No Symptoms Musculoskeletal: Reports: No Symptoms Skin: Reports: No Symptoms Neurological: Reports: No Symptoms Psychiatric: Reports: No Symptoms - Patient Data Vitals - Most Recent: Last Vital Signs Temp 97.5 F 08/31/17 15:55 Pulse 65 08/31/17 15:55 Resp 16 08/31/17 15:55 BP 118/66 08/31/17 15:55 Pulse Ox 95 08/31/17 15:55 Weight - Most Recent: 102.875 kg I&O - Last 24 Hours: Intake & Output 08/31/17 08/31/17 08/31/17 06:59 14:59 22:59 Intake Total 100 450 986 Output Total 350 Balance 100 450 636 Lab Results Last 24 Hours: Laboratory Results - last 24 hr 08/31/17 08/31/17 08/31/17 Range/Units 10:10 11:05 12:15 WBC 10.85 H (4.23-9.07) K/mm3 RBC 4.10 L (4.63-6.08) M/mm3 Hgb 11.4 L (13.7-17.5) gm/L Hct 36.4 L (40.1-51.0) % MCV 88.8 (79.0-92.2) fl MCH 27.8 (25.7-32.2) pg MCHC 31.3 L (32.2-35.5) g/dl RDW Std Deviation 47.0 H (35.1-43.9) fL Plt Count 217 (163-337) K/mm3 MPV 9.5 (9.4-12.3) fl Neut % (Auto) 75.4 H (34.0-67.9) % Lymph % (Auto) 14.1 L (21.8-53.1) % [place] % (Auto) 9.0 (5.3-12.2) % Eos % (Auto) 0.8 (0.8-7.0) Baso % (Auto) 0.2 (0.1-1.2) % Neut # (Auto) 8.18 H (1.78-5.38) K/mm3 Lymph # (Auto) 1.53 (1.32-3.57) K/mm3 [place] # (Auto) 0.98 H (0.30-0.82) K/mm3 Eos # (Auto) 0.09 (0.04-0.54) K/mm3 Baso # (Auto) 0.02 (0.01-0.08) K/mm3 POC Glucose 157 H (83-110) mg/dL MRSA (PCR) Negative Blood Type Gel Antibody Screen 08/31/17 08/31/17 Range/Units 12:16 12:20 WBC (4.23-9.07) K/mm3 RBC (4.63-6.08) M/mm3 Hgb 11.2 L (13.7-17.5) gm/L Hct 35.4 L (40.1-51.0) % MCV (79.0-92.2) fl MCH (25.7-32.2) pg MCHC (32.2-35.5) g/dl RDW Std Deviation (35.1-43.9) fL Plt Count (163-337) K/mm3 MPV (9.4-12.3) fl Neut % (Auto) (34.0-67.9) % Lymph % (Auto) (21.8-53.1) % [place] % (Auto) (5.3-12.2) % Eos % (Auto) (0.8-7.0) Baso % (Auto) (0.1-1.2) % Neut # (Auto) (1.78-5.38) K/mm3 Lymph # (Auto) (1.32-3.57) K/mm3 [place] # (Auto) (0.30-0.82) K/mm3 Eos # (Auto) (0.04-0.54) K/mm3 Baso # (Auto) (0.01-0.08) K/mm3 POC Glucose (83-110) mg/dL MRSA (PCR) Blood Type A POSITIVE Gel Antibody Screen Negative Med Orders - Current: Current Medications Acetaminophen (Tylenol) 650 mg PO Q4H PRN PRN Reason: Pain (Mild 1-3)/fever Acetaminophen (Tylenol) 975 mg PO BEDTIME [facility] Hydrocodone Bitart/Acetaminophen ([place] 325-5 Mg) 1 tab PO Q4H PRN PRN Reason: Pain (moderate 4-6) Last Admin: 08/31/17 15:56 Dose: 1 tab Albuterol (Proventil Neb Soln) 2.5 mg NEB Q2H PRN PRN Reason: Shortness Of Breath/wheezing Aspirin (Halfprin) 81 mg PO DAILY [facility] Carvedilol (Coreg) 3.125 mg PO BID [facility] Last Admin: 08/31/17 10:28 Dose: 3.125 mg Clopidogrel Bisulfate (Plavix) 75 mg PO DAILY [facility] Last Admin: 08/31/17 10:19 Dose: 75 mg Diphenhydramine HCl (Benadryl) 50 mg PO BEDTIME [facility] Ferrous Sulfate (Ferrous Sulfate) 325 mg PO DAILY [facility] Last Admin: 08/31/17 10:19 Dose: 325 mg Gabapentin (Neurontin) 600 mg PO BEDTIME [facility] Hydromorphone HCl (Dilaudid) 0.25 mg IVPUSH Q2H PRN PRN Reason: Pain (severe 7-10) Promethazine HCl 12.5 mg/ (Sodium Chloride) 50.5 mls @ 100 mls/hr IV Q6H PRN PRN Reason: Nausea/Vomiting Sodium Chloride (Normal Saline) 1,000 mls @ 200 mls/hr IV ASDIRECTED [facility] Last Admin: 08/31/17 12:53 Dose: 200 mls/hr Isosorbide Mononitrate (Imdur) 30 mg PO BEDTIME [facility] Levothyroxine Sodium (Levothyroxine) 75 mcg PO DAILY@1200 [facility] Last Admin: 08/31/17 12:29 Dose: 75 mcg Lorazepam (Ativan) 0.25 mg IV Q6H PRN PRN Reason: Anxiety Losartan Potassium (Cozaar) 50 mg PO DAILY [facility] Last Admin: 08/31/17 10:28 Dose: 50 mg Magnesium Hydroxide (Milk Of Magnesia) 5 ml PO DAILY PRN PRN Reason: Constipation Ondansetron HCl (Zofran) 4 mg IV Q6H PRN PRN Reason: Nausea/Vomiting Pantoprazole Sodium (Protonix) 40 mg PO BIDMEALS [facility] Last Admin: 08/31/17 10:42 Dose: 40 mg Rosuvastatin Calcium (Crestor) 20 mg PO BEDTIME [facility] Sertraline HCl (Zoloft) 50 mg PO DAILY [facility] Last Admin: 08/31/17 10:19 Dose: 50 mg Tamsulosin HCl (Flomax) 0.4 mg PO BEDTIME [facility] Temazepam (Restoril) 7.5 mg PO BEDTIME PRN PRN Reason: Sleep Discontinued Medications Aspirin (Ecotrin) 325 mg PO DAILY [facility] Last Admin: 08/31/17 13:18 Dose: Not Given Sodium Chloride (Normal Saline) 1,000 mls @ 999 mls/hr IV ONETIME ONE Stop: 08/31/17 04:03 Last Admin: 08/31/17 03:09 Dose: 999 mls/hr Sodium Chloride (Normal Saline) 1,000 mls @ 999 mls/hr IV ONETIME ONE Stop: 08/31/17 05:22 Last Admin: 08/31/17 04:25 Dose: 999 mls/hr - Exam General: Alert, Oriented, Cooperative, No Acute Distress HEENT: Pupils Equal, Pupils Reactive, EOMI, Mucous Membr. Moist/[place] Neck: Supple Lungs: Clear to Auscultation, Normal Respiratory Effort Cardiovascular: Regular Rate, Regular Rhythm GI/Abdominal Exam: Normal Bowel Sounds, Soft, Non-Tender, No Organomegaly, No Distention, No Abnormal Bruit, No Mass, Pelvis Stable (Male) Exam: Deferred Back Exam: Normal Inspection, Full Range of Motion Extremities: Normal Inspection, Normal Range of Motion, Non-Tender, No Pedal Edema, Normal Capillary Refill Peripheral Pulses: 2+: Carotid (L), Carotid (R), Brachial (L), Brachial (R), Radial (L), Radial (R), Femoral (L), Femoral (R), Popliteal (L), Popliteal (R), Posterior Tibial (L), Posterior Tibial (R), Dorsalis Pedis (L), Dorsalis Pedis ( R) Skin: Warm, Dry, Intact Neurological: No New Focal Deficit Psy/Mental Status: Alert, Normal Affect, Normal Mood - Problem List & Annotations (1) Lower GI bleed SNOMED Code(s): 12111779 Code(s): K92.2 - GASTROINTESTINAL HEMORRHAGE, UNSPECIFIED Status: Acute Priority: Medium Current Visit: Yes - Problem List Review Problem List Initiated/Reviewed/Updated: Yes - My Orders Last 24 Hours: My Active Orders 08/31/17 12:45 Sodium Chloride 0.9% [Normal Saline] 1,000 ml IV ASDIRECTED 08/31/17 Dinner Regular Diet [DIET] 09/01/17 09:00 Aspirin [Halfprin] 81 mg PO DAILY - Plan Plan:: Assessment/Plan: Acute: Rectal Bleed - Carries a hx/o GI Bleed S/p EGD/Colonoscopy [address] Enamorado: W/ findings of Gastritis, GERD, Polyps, Diverticulosis, Non-Specific Colitis, and External Hemorrhoids - Had 4 episode of rectal bleed: Bright Rectal Blood Per Rectum-2 episode at home and 2 in ED - Hgb on admission 13.8 - Risk Factors: On DAPT due to recent stent placement x 4 early this year and NSAID use for OA/DJD - He used to be on Aleve for OA/DJD: back pain and hips but was recently switched to Nabumetone 500 mg po BID by a specialist - Will recreational counselor patient on use of NSAID and the dangers of bleeding. Will continued well antiplatelet therapy with aspirin and Plavix. - Serial H/H revealed a stable hemoglobin. - Patient seen by Dr. Ortega with recommendations in chart. Chronic: Impaired Vision HTN HLD CAD s/p Stents x 29 Nov 2016 on dual antiplatelet therapy with aspirin and Plavix. Aspirin was discontinued on admission but we will restart at a dose of 81 mg by mouth daily. 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 surgery consult and recommendations in chart. PT/OT consult GI PPx: PPI DVT PPx: TEDS for now until DVT is ruled out SW/CM for d/c planning possibly in a.m. if patient remains stable Code status: DNR/DNI
[2017-08-31] MEDS: diphenhydrAMINE 50 MG Cap PO SCH (20:52)
[2017-08-31] MEDS: Isosorbide Mononitrate 30 MG Tab.ER PO SCH (20:56)
[2017-08-31] MEDS: Rosuvastatin 10 MG Tab PO SCH (20:56)
[2017-08-31] MEDS: Tamsulosin 0.4 MG Cap.ER PO SCH (20:56)
[2017-08-31] MEDS: Gabapentin 600 MG Tab PO SCH (20:58)
[2017-08-31] MEDS: Acetaminophen 325 MG Tab PO SCH (20:58)
[2017-08-31] MEDS ORDERED: Temazepam 7.5 MG Cap PO PRN (21:00)
[2017-08-31] MEDS ORDERED: Acetaminophen 650 MG Supp ONE (22:52)
[2017-09-01] MEDS: Acetaminophen/HYDROcodone 325-5 MG Tab PO PRN ×2 (03:56→11:04)
[2017-09-01] MEDS: Sodium Chloride 0.9% 1,000 ML IV SCH (05:32)
[2017-09-01] MEDS: Pantoprazole 40 MG Tab.CR PO SCH ×2 (06:06→16:46)
[2017-09-01] MEDS: Ferrous Sulfate 325 MG Tab PO SCH (08:16)
[2017-09-01] MEDS: Aspirin 81 MG Tab.EC PO SCH (08:16)
[2017-09-01] MEDS: Sertraline 50 MG Tab PO SCH (08:17)
[2017-09-01] MEDS: Clopidogrel 75 MG Tab PO SCH (08:17)
[2017-09-01] MEDS: Losartan 25 MG Tab PO SCH (08:17)
[2017-09-01] MEDS: Carvedilol 3.125 MG Tab PO SCH ×2 (08:18→20:17)
--- NOTE | 2017-09-01 09:13 | PCM.CONSN ---
- General Info Date of Service: 09/01/17 Functional Status: Reports: Tolerating Diet - Review of Systems General: Reports: No Symptoms - Patient Data Vitals - Most Recent: Last Vital Signs Temp 36.3 C 09/01/17 07:35 Pulse 72 09/01/17 08:18 Resp 16 09/01/17 07:35 BP 155/81 H 09/01/17 08:18 Pulse Ox 89 L 09/01/17 07:35 Weight - Most Recent: 105.052 kg I&O - Last 24 Hours: Intake & Output 08/31/17 09/01/17 09/01/17 22:59 06:59 14:59 Intake Total 1226 2508 Output Total 350 645 Balance 876 5873 Lab Results Last 24 Hours: Laboratory Results - last 24 hr 08/31/17 08/31/17 08/31/17 Range/Units 10:10 11:05 12:15 WBC 10.85 H (4.23-9.07) K/mm3 RBC 4.10 L (4.63-6.08) M/mm3 Hgb 11.4 L (13.7-17.5) gm/L Hct 36.4 L (40.1-51.0) % MCV 88.8 (79.0-92.2) fl MCH 27.8 (25.7-32.2) pg MCHC 31.3 L (32.2-35.5) g/dl RDW Std Deviation 47.0 H (35.1-43.9) fL Plt Count 217 (163-337) K/mm3 MPV 9.5 (9.4-12.3) fl Neut % (Auto) 75.4 H (34.0-67.9) % Lymph % (Auto) 14.1 L (21.8-53.1) % [place] % (Auto) 9.0 (5.3-12.2) % Eos % (Auto) 0.8 (0.8-7.0) Baso % (Auto) 0.2 (0.1-1.2) % Neut # (Auto) 8.18 H (1.78-5.38) K/mm3 Lymph # (Auto) 1.53 (1.32-3.57) K/mm3 [place] # (Auto) 0.98 H (0.30-0.82) K/mm3 Eos # (Auto) 0.09 (0.04-0.54) K/mm3 Baso # (Auto) 0.02 (0.01-0.08) K/mm3 Sodium (136-145) mEq/L Potassium (3.5-5.1) mEq/L Chloride (98-107) mEq/L Carbon Dioxide (21-32) mEq/L Anion Gap (5-15) BUN (7-18) mg/dL Creatinine (0.7-1.3) mg/dL Est Cr Clr Drug Dosing mL/min Estimated GFR (MDRD) (>60) mL/min BUN/Creatinine Ratio (14-18) Glucose (83-115) mg/dL POC Glucose 157 H (83-110) mg/dL Calcium (8.5-10.1) mg/dL Magnesium (1.8-2.4) mg/dl MRSA (PCR) Negative Blood Type Gel Antibody Screen 08/31/17 08/31/17 08/31/17 Range/Units 12:16 12:20 18:04 WBC (4.23-9.07) K/mm3 RBC (4.63-6.08) M/mm3 Hgb 11.2 L 10.3 L (13.7-17.5) gm/L Hct 35.4 L 33.1 L (40.1-51.0) % MCV (79.0-92.2) fl MCH (25.7-32.2) pg MCHC (32.2-35.5) g/dl RDW Std Deviation (35.1-43.9) fL Plt Count (163-337) K/mm3 MPV (9.4-12.3) fl Neut % (Auto) (34.0-67.9) % Lymph % (Auto) (21.8-53.1) % [place] % (Auto) (5.3-12.2) % Eos % (Auto) (0.8-7.0) Baso % (Auto) (0.1-1.2) % Neut # (Auto) (1.78-5.38) K/mm3 Lymph # (Auto) (1.32-3.57) K/mm3 [place] # (Auto) (0.30-0.82) K/mm3 Eos # (Auto) (0.04-0.54) K/mm3 Baso # (Auto) (0.01-0.08) K/mm3 Sodium (136-145) mEq/L Potassium (3.5-5.1) mEq/L Chloride (98-107) mEq/L Carbon Dioxide (21-32) mEq/L Anion Gap (5-15) BUN (7-18) mg/dL Creatinine (0.7-1.3) mg/dL Est Cr Clr Drug Dosing mL/min Estimated GFR (MDRD) (>60) mL/min BUN/Creatinine Ratio (14-18) Glucose (83-115) mg/dL POC Glucose (83-110) mg/dL Calcium (8.5-10.1) mg/dL Magnesium (1.8-2.4) mg/dl MRSA (PCR) Blood Type A POSITIVE Gel Antibody Screen Negative 09/01/17 09/01/17 09/01/17 Range/Units 01:00 06:05 06:05 WBC 7.92 (4.23-9.07) K/mm3 RBC 3.21 L (4.63-6.08) M/mm3 Hgb 9.3 L 8.8 L (13.7-17.5) gm/L Hct 30.3 L 28.6 L (40.1-51.0) % MCV 89.1 (79.0-92.2) fl MCH 27.4 (25.7-32.2) pg MCHC 30.8 L (32.2-35.5) g/dl RDW Std Deviation 46.7 H (35.1-43.9) fL Plt Count 180 (163-337) K/mm3 MPV 10.5 (9.4-12.3) fl Neut % (Auto) 75.2 H (34.0-67.9) % Lymph % (Auto) 13.6 L (21.8-53.1) % [place] % (Auto) 8.6 (5.3-12.2) % Eos % (Auto) 1.5 (0.8-7.0) Baso % (Auto) 0.3 (0.1-1.2) % Neut # (Auto) 5.96 H (1.78-5.38) K/mm3 Lymph # (Auto) 1.08 L (1.32-3.57) K/mm3 [place] # (Auto) 0.68 (0.30-0.82) K/mm3 Eos # (Auto) 0.12 (0.04-0.54) K/mm3 Baso # (Auto) 0.02 (0.01-0.08) K/mm3 Sodium 144 (136-145) mEq/L Potassium 4.2 (3.5-5.1) mEq/L Chloride 112 H (98-107) mEq/L Carbon Dioxide 23 (21-32) mEq/L Anion Gap 13.2 (5-15) BUN 30 H (7-18) mg/dL Creatinine 1.2 (0.7-1.3) mg/dL Est Cr Clr Drug Dosing 38.40 mL/min Estimated GFR (MDRD) 57 (>60) mL/min BUN/Creatinine Ratio 25.0 H (14-18) Glucose 102 (83-115) mg/dL POC Glucose (83-110) mg/dL Calcium 7.5 L (8.5-10.1) mg/dL Magnesium 1.7 L (1.8-2.4) mg/dl MRSA (PCR) Blood Type Gel Antibody Screen Med Orders - Current: Current Medications Acetaminophen (Tylenol) 650 mg PO Q4H PRN PRN Reason: Pain (Mild 1-3)/fever Acetaminophen (Tylenol) 975 mg PO BEDTIME [facility] Last Admin: 08/31/17 20:58 Dose: 975 mg Hydrocodone Bitart/Acetaminophen ([place] 325-5 Mg) 1 tab PO Q4H PRN PRN Reason: Pain (moderate 4-6) Last Admin: 09/01/17 03:56 Dose: 1 tab Albuterol (Proventil Neb Soln) 2.5 mg NEB Q2H PRN PRN Reason: Shortness Of Breath/wheezing Aspirin (Halfprin) 81 mg PO DAILY [facility] Last Admin: 09/01/17 08:16 Dose: 81 mg Carvedilol (Coreg) 3.125 mg PO BID [facility] Last Admin: 09/01/17 08:18 Dose: 3.125 mg Clopidogrel Bisulfate (Plavix) 75 mg PO DAILY [facility] Last Admin: 09/01/17 08:17 Dose: 75 mg Diphenhydramine HCl (Benadryl) 50 mg PO BEDTIME [facility] Last Admin: 08/31/17 20:52 Dose: 50 mg Ferrous Sulfate (Ferrous Sulfate) 325 mg PO DAILY [facility] Last Admin: 09/01/17 08:16 Dose: 325 mg Gabapentin (Neurontin) 600 mg PO BEDTIME [facility] Last Admin: 08/31/17 20:58 Dose: 600 mg Hydromorphone HCl (Dilaudid) 0.25 mg IVPUSH Q2H PRN PRN Reason: Pain (severe 7-10) Promethazine HCl 12.5 mg/ (Sodium Chloride) 50.5 mls @ 100 mls/hr IV Q6H PRN PRN Reason: Nausea/Vomiting Sodium Chloride (Normal Saline) 1,000 mls @ 200 mls/hr IV ASDIRECTED [facility] Last Admin: 09/01/17 05:32 Dose: 200 mls/hr Isosorbide Mononitrate (Imdur) 30 mg PO BEDTIME [facility] Last Admin: 08/31/17 20:56 Dose: 30 mg Levothyroxine Sodium (Levothyroxine) 75 mcg PO DAILY@1200 [facility] Last Admin: 08/31/17 12:29 Dose: 75 mcg Lorazepam (Ativan) 0.25 mg IV Q6H PRN PRN Reason: Anxiety Losartan Potassium (Cozaar) 50 mg PO DAILY [facility] Last Admin: 09/01/17 08:17 Dose: 50 mg Magnesium Hydroxide (Milk Of Magnesia) 5 ml PO DAILY PRN PRN Reason: Constipation Ondansetron HCl (Zofran) 4 mg IV Q6H PRN PRN Reason: Nausea/Vomiting Pantoprazole Sodium (Protonix) 40 mg PO BIDMEALS [facility] Last Admin: 09/01/17 06:06 Dose: 40 mg Rosuvastatin Calcium (Crestor) 20 mg PO BEDTIME [facility] Last Admin: 08/31/17 20:56 Dose: 20 mg Sertraline HCl (Zoloft) 50 mg PO DAILY [facility] Last Admin: 09/01/17 08:17 Dose: 50 mg Tamsulosin HCl (Flomax) 0.4 mg PO BEDTIME [facility] Last Admin: 08/31/17 20:56 Dose: 0.4 mg Temazepam (Restoril) 7.5 mg PO BEDTIME PRN PRN Reason: Sleep Discontinued Medications Acetaminophen (Tylenol) Confirm Administered Dose 650 mg .ROUTE .STK-MED ONE Stop: 08/31/17 22:53 Last Admin: 08/31/17 23:45 Dose: Not Given Aspirin (Ecotrin) 325 mg PO DAILY [facility] Last Admin: 08/31/17 13:18 Dose: Not Given Sodium Chloride (Normal Saline) 1,000 mls @ 999 mls/hr IV ONETIME ONE Stop: 08/31/17 04:03 Last Admin: 08/31/17 03:09 Dose: 999 mls/hr Sodium Chloride (Normal Saline) 1,000 mls @ 999 mls/hr IV ONETIME ONE Stop: 08/31/17 05:22 Last Admin: 08/31/17 04:25 Dose: 999 mls/hr - Exam GI/Abdominal Exam: Soft Consult PN Assessment/Plan Procedures: Procedures AGENT NOS ASSAY W/OPTIC (03/30/14) ASSAY OF CK (CPK) (03/19/15) ASSAY OF NATRIURETIC PEPTIDE (12/12/16) ASSAY OF TROPONIN QUANT (12/12/16) C DIFF AMPLIFIED PROBE (03/30/14) CHEST X-RAY 1 VIEW FRONTAL (03/19/15) CHEST X-RAY 2VW FRONTAL&LATL (12/12/16) CINE/VID X-RAY THROAT/ESOPH (07/11/17) COLONOSCOPY AND BIOPSY (03/30/14) COMPLETE CBC W/AUTO DIFF WBC (12/12/16) COMPREHEN METABOLIC PANEL (12/12/16) CREATINE MB FRACTION (06/10/15) CRYPTOSPORIDIUM AG IA (03/30/14) CT HEAD/BRAIN W/O DYE (03/19/15) CT SOFT TISSUE NECK W/O DYE (06/10/15) EGD BIOPSY SINGLE/MULTIPLE (03/30/14) ELECTROCARDIOGRAM TRACING (12/12/16) EMERGENCY DEPT VISIT (08/22/17) EMERGENCY DEPT VISIT (12/12/16) EMERGENCY DEPT VISIT (08/12/16) EMERGENCY DEPT VISIT (08/09/16) EMERGENCY DEPT VISIT (10/06/15) EMERGENCY DEPT VISIT (06/10/15) EMERGENCY DEPT VISIT (03/19/15) EXTRACRANIAL BILAT STUDY (03/23/15) FIBRIN DEGRADATION QUANT (08/09/16) GIARDIA AG IA (03/30/14) LEUKOCYTE ASSESSMENT FECAL (03/30/14) MEASURE BLOOD OXYGEN LEVEL (03/19/15) MOTION FLUOROSCOPY/SWALLOW (07/11/17) MRI CHEST SPINE W/O DYE (06/09/15) PROTHROMBIN TIME (06/10/15) PT EVALUATION (03/19/15) ROUTINE VENIPUNCTURE (12/12/16) STOOL CULTR AEROBIC BACT EA (03/30/14) THER/PROPH/DIAG INJ IV PUSH (06/10/15) TISSUE EXAM BY PATHOLOGIST (03/30/14) TTE W/DOPPLER COMPLETE (03/23/15) URINALYSIS AUTO W/SCOPE (03/19/15) VANOMYCIN DNA AMP PROBE (03/30/14) X-RAY EXAM HIP UNI 2-3 VIEWS (08/22/17) X-RAY EXAM KNEE 4 OR MORE (10/06/15) X-RAY EXAM OF ABDOMEN (08/12/16) X-RAY EXAM OF HIP (10/06/15) X-RAY EXAM OF WRIST (10/06/15) (1) Lower GI bleed SNOMED Code(s): 57395265 Code(s): K92.2 - GASTROINTESTINAL HEMORRHAGE, UNSPECIFIED Priority: Medium Current Visit: Yes Problem List Initiated/Reviewed/Updated: Yes My Orders Last 24 Hours: hgb 8.8. Plan: Will follow.
[2017-09-01] MEDS ORDERED: Furosemide 20 MG/2 ML VIAL IVPUSH ONE ×2 (10:40→11:39)
[2017-09-01] MEDS: Levothyroxine 75 MCG Tab PO SCH (11:05)
--- NOTE | 2017-09-01 11:52 | PCM.PN ---
- General Info Date of Service: 09/01/17 Admission Dx/Problem (Free Text): Admission Diagnosis/Problem Admission Diagnosis/Problem GI bleed not requiring more than 4 units of blood in 24 hours, ICU, or surgery Subjective Update: Patient seen bedside this morning. Denies any more bleeding or any other issues. He is tolerating oral diet. Surgery follow-up listed and appreciated. Functional Status: Reports: Pain Controlled, Tolerating Diet, Ambulating, Urinating. Denies: New Symptoms - Review of Systems General: Reports: No Symptoms HEENT: Reports: No Symptoms Pulmonary: Reports: No Symptoms Cardiovascular: Reports: No Symptoms Gastrointestinal: Reports: No Symptoms Genitourinary: Reports: No Symptoms Musculoskeletal: Reports: No Symptoms Skin: Reports: No Symptoms Neurological: Reports: No Symptoms Psychiatric: Reports: No Symptoms - Patient Data Vitals - Most Recent: Last Vital Signs Temp 97.3 F 09/01/17 07:35 Pulse 78 09/01/17 09:20 Resp 16 09/01/17 07:35 BP 130/78 09/01/17 09:20 Pulse Ox 89 L 09/01/17 07:35 Weight - Most Recent: 105.052 kg I&O - Last 24 Hours: Intake & Output 08/31/17 09/01/17 09/01/17 22:59 06:59 14:59 Intake Total 1226 2508 Output Total 350 645 Balance 876 4793 Lab Results Last 24 Hours: Laboratory Results - last 24 hr 08/31/17 08/31/17 08/31/17 Range/Units 11:05 12:15 12:16 WBC (4.23-9.07) K/mm3 RBC (4.63-6.08) M/mm3 Hgb 11.2 L (13.7-17.5) gm/L Hct 35.4 L (40.1-51.0) % MCV (79.0-92.2) fl MCH (25.7-32.2) pg MCHC (32.2-35.5) g/dl RDW Std Deviation (35.1-43.9) fL Plt Count (163-337) K/mm3 MPV (9.4-12.3) fl Neut % (Auto) (34.0-67.9) % Lymph % (Auto) (21.8-53.1) % [place] % (Auto) (5.3-12.2) % Eos % (Auto) (0.8-7.0) Baso % (Auto) (0.1-1.2) % Neut # (Auto) (1.78-5.38) K/mm3 Lymph # (Auto) (1.32-3.57) K/mm3 [place] # (Auto) (0.30-0.82) K/mm3 Eos # (Auto) (0.04-0.54) K/mm3 Baso # (Auto) (0.01-0.08) K/mm3 Sodium (136-145) mEq/L Potassium (3.5-5.1) mEq/L Chloride (98-107) mEq/L Carbon Dioxide (21-32) mEq/L Anion Gap (5-15) BUN (7-18) mg/dL Creatinine (0.7-1.3) mg/dL Est Cr Clr Drug Dosing mL/min Estimated GFR (MDRD) (>60) mL/min BUN/Creatinine Ratio (14-18) Glucose (83-115) mg/dL POC Glucose 157 H (83-110) mg/dL Calcium (8.5-10.1) mg/dL Magnesium (1.8-2.4) mg/dl MRSA (PCR) Negative Blood Type Gel Antibody Screen 08/31/17 08/31/17 09/01/17 Range/Units 12:20 18:04 01:00 WBC (4.23-9.07) K/mm3 RBC (4.63-6.08) M/mm3 Hgb 10.3 L 9.3 L (13.7-17.5) gm/L Hct 33.1 L 30.3 L (40.1-51.0) % MCV (79.0-92.2) fl MCH (25.7-32.2) pg MCHC (32.2-35.5) g/dl RDW Std Deviation (35.1-43.9) fL Plt Count (163-337) K/mm3 MPV (9.4-12.3) fl Neut % (Auto) (34.0-67.9) % Lymph % (Auto) (21.8-53.1) % [place] % (Auto) (5.3-12.2) % Eos % (Auto) (0.8-7.0) Baso % (Auto) (0.1-1.2) % Neut # (Auto) (1.78-5.38) K/mm3 Lymph # (Auto) (1.32-3.57) K/mm3 [place] # (Auto) (0.30-0.82) K/mm3 Eos # (Auto) (0.04-0.54) K/mm3 Baso # (Auto) (0.01-0.08) K/mm3 Sodium (136-145) mEq/L Potassium (3.5-5.1) mEq/L Chloride (98-107) mEq/L Carbon Dioxide (21-32) mEq/L Anion Gap (5-15) BUN (7-18) mg/dL Creatinine (0.7-1.3) mg/dL Est Cr Clr Drug Dosing mL/min Estimated GFR (MDRD) (>60) mL/min BUN/Creatinine Ratio (14-18) Glucose (83-115) mg/dL POC Glucose (83-110) mg/dL Calcium (8.5-10.1) mg/dL Magnesium (1.8-2.4) mg/dl MRSA (PCR) Blood Type A POSITIVE Gel Antibody Screen Negative 09/01/17 09/01/17 Range/Units 06:05 06:05 WBC 7.92 (4.23-9.07) K/mm3 RBC 3.21 L (4.63-6.08) M/mm3 Hgb 8.8 L (13.7-17.5) gm/L Hct 28.6 L (40.1-51.0) % MCV 89.1 (79.0-92.2) fl MCH 27.4 (25.7-32.2) pg MCHC 30.8 L (32.2-35.5) g/dl RDW Std Deviation 46.7 H (35.1-43.9) fL Plt Count 180 (163-337) K/mm3 MPV 10.5 (9.4-12.3) fl Neut % (Auto) 75.2 H (34.0-67.9) % Lymph % (Auto) 13.6 L (21.8-53.1) % [place] % (Auto) 8.6 (5.3-12.2) % Eos % (Auto) 1.5 (0.8-7.0) Baso % (Auto) 0.3 (0.1-1.2) % Neut # (Auto) 5.96 H (1.78-5.38) K/mm3 Lymph # (Auto) 1.08 L (1.32-3.57) K/mm3 [place] # (Auto) 0.68 (0.30-0.82) K/mm3 Eos # (Auto) 0.12 (0.04-0.54) K/mm3 Baso # (Auto) 0.02 (0.01-0.08) K/mm3 Sodium 144 (136-145) mEq/L Potassium 4.2 (3.5-5.1) mEq/L Chloride 112 H (98-107) mEq/L Carbon Dioxide 23 (21-32) mEq/L Anion Gap 13.2 (5-15) BUN 30 H (7-18) mg/dL Creatinine 1.2 (0.7-1.3) mg/dL Est Cr Clr Drug Dosing 38.40 mL/min Estimated GFR (MDRD) 57 (>60) mL/min BUN/Creatinine Ratio 25.0 H (14-18) Glucose 102 (83-115) mg/dL POC Glucose (83-110) mg/dL Calcium 7.5 L (8.5-10.1) mg/dL Magnesium 1.7 L (1.8-2.4) mg/dl MRSA (PCR) Blood Type Gel Antibody Screen Med Orders - Current: Current Medications Acetaminophen (Tylenol) 650 mg PO Q4H PRN PRN Reason: Pain (Mild 1-3)/fever Acetaminophen (Tylenol) 975 mg PO BEDTIME [facility] Last Admin: 08/31/17 20:58 Dose: 975 mg Hydrocodone Bitart/Acetaminophen ([place] 325-5 Mg) 1 tab PO Q4H PRN PRN Reason: Pain (moderate 4-6) Last Admin: 09/01/17 11:04 Dose: 1 tab Albuterol (Proventil Neb Soln) 2.5 mg NEB Q2H PRN PRN Reason: Shortness Of Breath/wheezing Aspirin (Halfprin) 81 mg PO DAILY [facility] Last Admin: 09/01/17 08:16 Dose: 81 mg Carvedilol (Coreg) 3.125 mg PO BID [facility] Last Admin: 09/01/17 08:18 Dose: 3.125 mg Clopidogrel Bisulfate (Plavix) 75 mg PO DAILY [facility] Last Admin: 09/01/17 08:17 Dose: 75 mg Diphenhydramine HCl (Benadryl) 50 mg PO BEDTIME [facility] Last Admin: 08/31/17 20:52 Dose: 50 mg Ferrous Sulfate (Ferrous Sulfate) 325 mg PO DAILY [facility] Last Admin: 09/01/17 08:16 Dose: 325 mg Furosemide (Lasix) 20 mg IVPUSH NOW ONE Stop: 09/01/17 11:40 Gabapentin (Neurontin) 600 mg PO BEDTIME [facility] Last Admin: 08/31/17 20:58 Dose: 600 mg Hydromorphone HCl (Dilaudid) 0.25 mg IVPUSH Q2H PRN PRN Reason: Pain (severe 7-10) Promethazine HCl 12.5 mg/ (Sodium Chloride) 50.5 mls @ 100 mls/hr IV Q6H PRN PRN Reason: Nausea/Vomiting Isosorbide Mononitrate (Imdur) 30 mg PO BEDTIME [facility] Last Admin: 08/31/17 20:56 Dose: 30 mg Levothyroxine Sodium (Levothyroxine) 75 mcg PO DAILY@1200 [facility] Last Admin: 09/01/17 11:05 Dose: 75 mcg Lorazepam (Ativan) 0.25 mg IV Q6H PRN PRN Reason: Anxiety Losartan Potassium (Cozaar) 50 mg PO DAILY [facility] Last Admin: 09/01/17 08:17 Dose: 50 mg Magnesium Hydroxide (Milk Of Magnesia) 5 ml PO DAILY PRN PRN Reason: Constipation Ondansetron HCl (Zofran) 4 mg IV Q6H PRN PRN Reason: Nausea/Vomiting Pantoprazole Sodium (Protonix) 40 mg PO BIDMEALS [facility] Last Admin: 09/01/17 06:06 Dose: 40 mg Rosuvastatin Calcium (Crestor) 20 mg PO BEDTIME [facility] Last Admin: 08/31/17 20:56 Dose: 20 mg Sertraline HCl (Zoloft) 50 mg PO DAILY [facility] Last Admin: 09/01/17 08:17 Dose: 50 mg Tamsulosin HCl (Flomax) 0.4 mg PO BEDTIME [facility] Last Admin: 08/31/17 20:56 Dose: 0.4 mg Temazepam (Restoril) 7.5 mg PO BEDTIME PRN PRN Reason: Sleep Discontinued Medications Acetaminophen (Tylenol) Confirm Administered Dose 650 mg .ROUTE .STK-MED ONE Stop: 08/31/17 22:53 Last Admin: 08/31/17 23:45 Dose: Not Given Aspirin (Ecotrin) 325 mg PO DAILY [facility] Last Admin: 08/31/17 13:18 Dose: Not Given Furosemide (Lasix) 20 mg IVPUSH ONETIME ONE Stop: 09/01/17 10:41 Last Admin: 09/01/17 11:04 Dose: 20 mg Sodium Chloride (Normal Saline) 1,000 mls @ 999 mls/hr IV ONETIME ONE Stop: 08/31/17 04:03 Last Admin: 08/31/17 03:09 Dose: 999 mls/hr Sodium Chloride (Normal Saline) 1,000 mls @ 999 mls/hr IV ONETIME ONE Stop: 08/31/17 05:22 Last Admin: 08/31/17 04:25 Dose: 999 mls/hr Sodium Chloride (Normal Saline) 1,000 mls @ 200 mls/hr IV ASDIRECTED [facility] Last Admin: 09/01/17 05:32 Dose: 200 mls/hr - Exam General: Alert, Oriented, Cooperative, No Acute Distress HEENT: Pupils Equal, Pupils Reactive, EOMI, Mucous Membr. Moist/[place] Neck: Supple Lungs: Clear to Auscultation, Normal Respiratory Effort Cardiovascular: Regular Rate, Regular Rhythm GI/Abdominal Exam: Normal Bowel Sounds, Soft, Non-Tender, No Organomegaly, No Distention, No Abnormal Bruit, No Mass, Pelvis Stable (Male) Exam: Deferred Back Exam: Normal Inspection Extremities: Normal Inspection, Normal Range of Motion, Non-Tender, No Pedal Edema, Normal Capillary Refill Peripheral Pulses: 2+: Carotid (L), Carotid (R), Brachial (L), Brachial (R), Radial (L), Radial (R), Femoral (L), Femoral (R), Popliteal (L), Popliteal (R), Posterior Tibial (L), Posterior Tibial (R), Dorsalis Pedis (L), Dorsalis Pedis ( R) Skin: Warm, Dry, Intact Neurological: No New Focal Deficit Psy/Mental Status: Alert, Normal Affect, Normal Mood - Problem List & Annotations (1) Lower GI bleed SNOMED Code(s): 22638056 Code(s): K92.2 - GASTROINTESTINAL HEMORRHAGE, UNSPECIFIED Status: Acute Priority: Medium Current Visit: Yes - Problem List Review Problem List Initiated/Reviewed/Updated: Yes - My Orders Last 24 Hours: My Active Orders 08/31/17 Dinner Regular Diet [DIET] 09/01/17 09:00 Aspirin [Halfprin] 81 mg PO DAILY 09/01/17 11:39 Furosemide [Lasix] 20 mg IVPUSH NOW ONE - Plan Plan:: Assessment/Plan: Acute: Rectal Bleed -Patient denies any more bleeding per rectum. -We will recheck CBC in a.m. Current CBC is at 8.9. -General surgery follow-up noted and appreciated. -Give Lasix 20 mg IV 1 dose. Monitor I's and O's Chronic: Impaired Vision HTN HLD CAD s/p Stents x 29 Nov 2016 on dual antiplatelet therapy with aspirin and Plavix. Aspirin was discontinued on admission but we will restart at a dose of 81 mg by mouth daily. 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 Discontinue IV fluids as patient is tolerating regular diet. Resume other Home Meds Gen. surgery follow-up appreciated with recommendations in chart. PT/OT consult GI PPx: PPI DVT PPx: TEDS for now until DVT is ruled out SW/VIRGIL for d/c planning possibly in a.m. if patient remains stable Code status: DNR/DNI
[2017-09-01] MEDS: diphenhydrAMINE 50 MG Cap PO SCH (20:17)
[2017-09-01] MEDS: Rosuvastatin 10 MG Tab PO SCH (20:18)
[2017-09-01] MEDS: Tamsulosin 0.4 MG Cap.ER PO SCH (20:18)
[2017-09-01] MEDS: Acetaminophen 325 MG Tab PO SCH (20:19)
[2017-09-01] MEDS: Gabapentin 600 MG Tab PO SCH (20:19)
[2017-09-01] MEDS: Isosorbide Mononitrate 30 MG Tab.ER PO SCH (20:19)
[2017-09-02] MEDS: Pantoprazole 40 MG Tab.CR PO SCH (06:05)
[2017-09-02] MEDS: Clopidogrel 75 MG Tab PO SCH (09:12)
[2017-09-02] MEDS: Ferrous Sulfate 325 MG Tab PO SCH (09:12)
[2017-09-02] MEDS: Sertraline 50 MG Tab PO SCH (09:15)
[2017-09-02] MEDS: Carvedilol 3.125 MG Tab PO SCH (09:15)
[2017-09-02] MEDS: Aspirin 81 MG Tab.EC PO SCH (09:15)
[2017-09-02] MEDS: Losartan 25 MG Tab PO SCH (09:17)
[2017-09-02] MEDS: Acetaminophen/HYDROcodone 325-5 MG Tab PO PRN (10:17)
--- NOTE | 2017-09-02 10:21 | PCM.CONSN ---
- General Info Date of Service: 09/02/17 - Review of Systems General: Reports: No Symptoms Gastrointestinal: Reports: Other (Patient denies seeing any additional bleeding with bowel movements.) - Patient Data Vitals - Most Recent: Last Vital Signs Temp 36.6 C 09/02/17 09:15 Pulse 70 09/02/17 09:16 Resp 16 09/02/17 09:15 BP 114/75 09/02/17 09:17 Pulse Ox 91 L 09/02/17 09:16 Weight - Most Recent: 103.6 kg I&O - Last 24 Hours: Intake & Output 09/01/17 09/02/17 09/02/17 22:59 06:59 14:59 Intake Total 870 150 Output Total 2150 925 Balance -1280 -775 Lab Results Last 24 Hours: Laboratory Results - last 24 hr 09/02/17 09/02/17 Range/Units 06:20 06:20 WBC 8.53 (4.23-9.07) K/mm3 RBC 3.24 L (4.63-6.08) M/mm3 Hgb 9.0 L (13.7-17.5) gm/L Hct 28.7 L (40.1-51.0) % MCV 88.6 (79.0-92.2) fl MCH 27.8 (25.7-32.2) pg MCHC 31.4 L (32.2-35.5) g/dl RDW Std Deviation 46.1 H (35.1-43.9) fL Plt Count 189 (163-337) K/mm3 MPV 10.2 (9.4-12.3) fl Neut % (Auto) 76.9 H (34.0-67.9) % Lymph % (Auto) 12.2 L (21.8-53.1) % [place] % (Auto) 8.1 (5.3-12.2) % Eos % (Auto) 1.5 (0.8-7.0) Baso % (Auto) 0.2 (0.1-1.2) % Neut # (Auto) 6.56 H (1.78-5.38) K/mm3 Lymph # (Auto) 1.04 L (1.32-3.57) K/mm3 [place] # (Auto) 0.69 (0.30-0.82) K/mm3 Eos # (Auto) 0.13 (0.04-0.54) K/mm3 Baso # (Auto) 0.02 (0.01-0.08) K/mm3 Sodium 143 (136-145) mEq/L Potassium 4.1 (3.5-5.1) mEq/L Chloride 110 H (98-107) mEq/L Carbon Dioxide 27 (21-32) mEq/L Anion Gap 10.1 (5-15) BUN 25 H (7-18) mg/dL Creatinine 1.5 H (0.7-1.3) mg/dL Est Cr Clr Drug Dosing 30.72 mL/min Estimated GFR (MDRD) 44 (>60) mL/min BUN/Creatinine Ratio 16.7 (14-18) Glucose 115 (83-115) mg/dL Calcium 8.2 L (8.5-10.1) mg/dL Magnesium 1.8 (1.8-2.4) mg/dl Med Orders - Current: Current Medications Acetaminophen (Tylenol) 650 mg PO Q4H PRN PRN Reason: Pain (Mild 1-3)/fever Acetaminophen (Tylenol) 975 mg PO BEDTIME [facility] Last Admin: 09/01/17 20:19 Dose: 975 mg Hydrocodone Bitart/Acetaminophen ([place] 325-5 Mg) 1 tab PO Q4H PRN PRN Reason: Pain (moderate 4-6) Last Admin: 09/02/17 10:17 Dose: 1 tab Albuterol (Proventil Neb Soln) 2.5 mg NEB Q2H PRN PRN Reason: Shortness Of Breath/wheezing Aspirin (Halfprin) 81 mg PO DAILY [facility] Last Admin: 09/02/17 09:15 Dose: 81 mg Carvedilol (Coreg) 3.125 mg PO BID [facility] Last Admin: 09/02/17 09:15 Dose: 3.125 mg Clopidogrel Bisulfate (Plavix) 75 mg PO DAILY [facility] Last Admin: 09/02/17 09:12 Dose: 75 mg Diphenhydramine HCl (Benadryl) 50 mg PO BEDTIME [facility] Last Admin: 09/01/17 20:17 Dose: 50 mg Ferrous Sulfate (Ferrous Sulfate) 325 mg PO DAILY [facility] Last Admin: 09/02/17 09:12 Dose: 325 mg Gabapentin (Neurontin) 600 mg PO BEDTIME [facility] Last Admin: 09/01/17 20:19 Dose: 600 mg Hydromorphone HCl (Dilaudid) 0.25 mg IVPUSH Q2H PRN PRN Reason: Pain (severe 7-10) Promethazine HCl 12.5 mg/ (Sodium Chloride) 50.5 mls @ 100 mls/hr IV Q6H PRN PRN Reason: Nausea/Vomiting Isosorbide Mononitrate (Imdur) 30 mg PO BEDTIME [facility] Last Admin: 09/01/17 20:19 Dose: 30 mg Levothyroxine Sodium (Levothyroxine) 75 mcg PO DAILY@1200 [facility] Last Admin: 09/01/17 11:05 Dose: 75 mcg Lorazepam (Ativan) 0.25 mg IV Q6H PRN PRN Reason: Anxiety Losartan Potassium (Cozaar) 50 mg PO DAILY [facility] Last Admin: 09/02/17 09:17 Dose: 50 mg Magnesium Hydroxide (Milk Of Magnesia) 5 ml PO DAILY PRN PRN Reason: Constipation Ondansetron HCl (Zofran) 4 mg IV Q6H PRN PRN Reason: Nausea/Vomiting Pantoprazole Sodium (Protonix) 40 mg PO BIDMEALS [facility] Last Admin: 09/02/17 06:05 Dose: 40 mg Rosuvastatin Calcium (Crestor) 20 mg PO BEDTIME [facility] Last Admin: 09/01/17 20:18 Dose: 20 mg Sertraline HCl (Zoloft) 50 mg PO DAILY [facility] Last Admin: 09/02/17 09:15 Dose: 50 mg Tamsulosin HCl (Flomax) 0.4 mg PO BEDTIME [facility] Last Admin: 09/01/17 20:18 Dose: 0.4 mg Temazepam (Restoril) 7.5 mg PO BEDTIME PRN PRN Reason: Sleep Discontinued Medications Acetaminophen (Tylenol) Confirm Administered Dose 650 mg .ROUTE .STK-MED ONE Stop: 08/31/17 22:53 Last Admin: 08/31/17 23:45 Dose: Not Given Aspirin (Ecotrin) 325 mg PO DAILY [facility] Last Admin: 08/31/17 13:18 Dose: Not Given Furosemide (Lasix) 20 mg IVPUSH ONETIME ONE Stop: 09/01/17 10:41 Last Admin: 09/01/17 11:04 Dose: 20 mg Furosemide (Lasix) 20 mg IVPUSH NOW ONE Stop: 09/01/17 11:40 Last Admin: 09/01/17 13:48 Dose: Not Given Sodium Chloride (Normal Saline) 1,000 mls @ 999 mls/hr IV ONETIME ONE Stop: 08/31/17 04:03 Last Admin: 08/31/17 03:09 Dose: 999 mls/hr Sodium Chloride (Normal Saline) 1,000 mls @ 999 mls/hr IV ONETIME ONE Stop: 08/31/17 05:22 Last Admin: 08/31/17 04:25 Dose: 999 mls/hr Sodium Chloride (Normal Saline) 1,000 mls @ 200 mls/hr IV ASDIRECTED [facility] Last Admin: 09/01/17 05:32 Dose: 200 mls/hr - Exam GI/Abdominal Exam: Soft Consult PN Assessment/Plan Procedures: Procedures AGENT NOS ASSAY W/OPTIC (03/30/14) ASSAY OF CK (CPK) (03/19/15) ASSAY OF NATRIURETIC PEPTIDE (12/12/16) ASSAY OF TROPONIN QUANT (12/12/16) C DIFF AMPLIFIED PROBE (03/30/14) CHEST X-RAY 1 VIEW FRONTAL (03/19/15) CHEST X-RAY 2VW FRONTAL&LATL (12/12/16) CINE/VID X-RAY THROAT/ESOPH (07/11/17) COLONOSCOPY AND BIOPSY (03/30/14) COMPLETE CBC W/AUTO DIFF WBC (12/12/16) COMPREHEN METABOLIC PANEL (12/12/16) CREATINE MB FRACTION (06/10/15) CRYPTOSPORIDIUM AG IA (03/30/14) CT HEAD/BRAIN W/O DYE (03/19/15) CT SOFT TISSUE NECK W/O DYE (06/10/15) EGD BIOPSY SINGLE/MULTIPLE (03/30/14) ELECTROCARDIOGRAM TRACING (12/12/16) EMERGENCY DEPT VISIT (08/22/17) EMERGENCY DEPT VISIT (12/12/16) EMERGENCY DEPT VISIT (08/12/16) EMERGENCY DEPT VISIT (08/09/16) EMERGENCY DEPT VISIT (10/06/15) EMERGENCY DEPT VISIT (06/10/15) EMERGENCY DEPT VISIT (03/19/15) EXTRACRANIAL BILAT STUDY (03/23/15) FIBRIN DEGRADATION QUANT (08/09/16) GIARDIA AG IA (03/30/14) LEUKOCYTE ASSESSMENT FECAL (03/30/14) MEASURE BLOOD OXYGEN LEVEL (03/19/15) MOTION FLUOROSCOPY/SWALLOW (07/11/17) MRI CHEST SPINE W/O DYE (06/09/15) PROTHROMBIN TIME (06/10/15) PT EVALUATION (03/19/15) ROUTINE VENIPUNCTURE (12/12/16) STOOL CULTR AEROBIC BACT EA (03/30/14) THER/PROPH/DIAG INJ IV PUSH (06/10/15) TISSUE EXAM BY PATHOLOGIST (03/30/14) TTE W/DOPPLER COMPLETE (03/23/15) URINALYSIS AUTO W/SCOPE (03/19/15) VANOMYCIN DNA AMP PROBE (03/30/14) X-RAY EXAM HIP UNI 2-3 VIEWS (08/22/17) X-RAY EXAM KNEE 4 OR MORE (10/06/15) X-RAY EXAM OF ABDOMEN (08/12/16) X-RAY EXAM OF HIP (10/06/15) X-RAY EXAM OF WRIST (10/06/15) (1) Lower GI bleed SNOMED Code(s): 49013840 Code(s): K92.2 - GASTROINTESTINAL HEMORRHAGE, UNSPECIFIED Priority: Medium Current Visit: Yes Problem List Initiated/Reviewed/Updated: Yes My Orders Last 24 Hours: Hemoglobin stable since yesterday. Plan: Okay for discharge with follow-up with primary care provider for possible diagnostic colonoscopy as an outpatient.
[2017-09-02] MEDS: Levothyroxine 75 MCG Tab PO SCH (12:26)
--- NOTE | 2017-09-02 12:35 | PCM.DCSUM1 ---
Discharge Summary - Hospital Course Free Text/Narrative:: 87-year-old man who was admitted for evaluation of complaints of bleeding per rectum. Patient was admitted to ICU and Gen. surgery consult was requested. He was seen by Dr. Ortega who after discussing with him on noted the patient did not want any endoscopy at this hospital and would prefer to follow up with his primary care physician if needed. He states that he has had colonoscopy done [place] [address] Howell. His hemoglobin and hematocrit was monitored until it stabilized and he did not need any more transfusions on this admission. 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 HPI Initial Comments: This is an 87 year old elderly pleasant white male with past medical history of impaired vision, hypertension, hypercholesterolemia, history of PE, GERD, history of GI bleed, non-specific colitis, hypothyroidism, BPH, depression, and obesity who presents to the emergency department with complains of rectal bleed that started last night. He had 2 episode of rectal bleed prior to presentation to the emergency department and again while he was being evaluated in ED. He reports some abdominal cramps but denies any diarrhea or constipation. No shortness of breath, chest pain, dizziness, or lightheadedness. Patient carries a past medical history of GI bleed. He underwent upper and lower endoscopy in [address] Enamorado with findings of gastritis, GERD , diverticulosis, nonspecific colitis, and external hemorrhoids. According to patient he has done well since then. His acute rectal bleed just started yesterday after he to took an NSAID (Nabumetone) that was prescribed to him by specialist for his chronic OA/DJD. His risk factor includes being on dual antiplatelet therapy for his recent stent placement 4 done earlier this year in [facility]. He is not on any anti-coags. His initial workup in the emergency department shows a CBC remarkable for WBC of 11.33, MCHC of 31.7, and neutrophils of 74%. His chemistry is remarkable for chloride of 108, BUN of 36, creatinine 1.6, glucose of 132, calcium 8.1, total protein of 6.1, and albumin of 2.9. He was positive for orthostatic hypotension on initial assessment in the emergency department. Patient received initial resuscitation in the emergency department before he was sent to the floor for further management. He is being admitted for management acute GI bleed. He is DNR/DNI. - Discharge Data Discharge Date: 09/02/17 Discharge Disposition: Home, Self-Care 01 Condition: Good - Discharge Diagnosis/Problem(s) (1) Lower GI bleed SNOMED Code(s): 63428302 ICD Code: K92.2 - GASTROINTESTINAL HEMORRHAGE, UNSPECIFIED Status: Acute Priority: Medium Current Visit: Yes - Patient Summary/Data Consults: Consultations 08/31/17 07:07 Consult to Case Management [CONS] Routine Consult to Exercise Physiologist Certified [CONS] Routine Consult to Spiritual Care [CONS] Routine OT Evaluation and Treatment [CONS] Routine PT Evaluation and Treatment [CONS] Routine 08/31/17 12:40 Consult to Physician [CONS] Routine - Patient Instructions Diet: Heart Healthy Diet, Drink 8-10+ Glasses/Day, No Alcoholic Beverages Activity: As Tolerated Notify Provider of: Nausea and/or Vomiting - Discharge Plan Prescriptions/Med Rec: Acetaminophen [Tylenol] 650 mg PO Q6H PRN #60 tablet PRN Reason: Pain Aspirin [Halfprin] 81 mg PO DAILY #30 tab.ec Home Medications: Home Meds Furosemide [Lasix] 20 mg PO DAILY 03/27/14 [History] Levothyroxine [Synthroid] 75 mcg PO DAILY 03/27/14 [History] Losartan [Cozaar] 50 mg PO DAILY 03/27/14 [History] Sertraline [Zoloft] 50 mg PO DAILY 03/27/14 [History] Gabapentin 600 mg PO BEDTIME 03/19/15 [History] Acetaminophen/Diphenhydramine [Tylenol Pm Ex-Strength Caplet] 2 tab PO BEDTIME 08/22/17 [History] Carvedilol [Coreg] 3.125 mg PO BID 08/22/17 [History] Clopidogrel [Plavix] 75 mg PO DAILY 08/22/17 [History] Docusate Sodium [Colace] 200 mg PO DAILY 08/22/17 [History] Ferrous Sulfate 325 mg PO DAILY 08/22/17 [History] Isosorbide Mononitrate [Ismo] 30 mg PO BEDTIME 08/22/17 [History] Magnesium Hydroxide [Milk of Magnesia] 5 ml PO DAILY PRN 08/22/17 [History] Pantoprazole [ProTONIX] 40 mg PO BID 08/22/17 [History] Rosuvastatin Calcium 20 mg PO DAILY 08/22/17 [History] Tamsulosin [Flomax] 0.4 mg PO BEDTIME 08/22/17 [History] Acetaminophen [Tylenol] 650 mg PO Q6H PRN #60 tablet 09/02/17 [Rx] Aspirin [Halfprin] 81 mg PO DAILY #30 tab.ec 09/02/17 [Rx] Referrals: PCP,None [Primary Care Provider] - (Patient has been advised to call his primary care physician and make an appointment within this week.) - Discharge Summary/Plan Comment DC Time >30 min.: Yes - General Info Date of Service: 09/02/17 Admission Dx/Problem (Free Text: Admission Diagnosis/Problem Admission Diagnosis/Problem GI bleed not requiring more than 4 units of blood in 24 hours, ICU, or surgery Subjective Update: Patient seen bedside this morning. Denies any more bleeding or any other issues. He is tolerating oral diet. Surgery follow-up noted and appreciated. Functional Status: Reports: Pain Controlled, Tolerating Diet, Ambulating, Urinating. Denies: New Symptoms - Review of Systems General: Reports: No Symptoms HEENT: Reports: No Symptoms Pulmonary: Reports: No Symptoms Cardiovascular: Reports: No Symptoms Gastrointestinal: Reports: No Symptoms Genitourinary: Reports: No Symptoms Musculoskeletal: Reports: No Symptoms Skin: Reports: No Symptoms Neurological: Reports: No Symptoms Psychiatric: Reports: No Symptoms - Patient Data Vitals - Most Recent: Last Vital Signs Temp 97.9 F 09/02/17 09:15 Pulse 70 09/02/17 09:16 Resp 16 09/02/17 09:15 BP 114/75 09/02/17 09:17 Pulse Ox 91 L 09/02/17 09:16 Weight - Most Recent: 103.6 kg I&O - Last 24 hours: Intake & Output 09/01/17 09/02/17 09/02/17 22:59 06:59 14:59 Intake Total 870 150 Output Total 2150 925 Balance -1280 -775 Lab Results - Last 24 hrs: Laboratory Results - last 24 hr 09/02/17 09/02/17 Range/Units 06:20 06:20 WBC 8.53 (4.23-9.07) K/mm3 RBC 3.24 L (4.63-6.08) M/mm3 Hgb 9.0 L (13.7-17.5) gm/L Hct 28.7 L (40.1-51.0) % MCV 88.6 (79.0-92.2) fl MCH 27.8 (25.7-32.2) pg MCHC 31.4 L (32.2-35.5) g/dl RDW Std Deviation 46.1 H (35.1-43.9) fL Plt Count 189 (163-337) K/mm3 MPV 10.2 (9.4-12.3) fl Neut % (Auto) 76.9 H (34.0-67.9) % Lymph % (Auto) 12.2 L (21.8-53.1) % [place] % (Auto) 8.1 (5.3-12.2) % Eos % (Auto) 1.5 (0.8-7.0) Baso % (Auto) 0.2 (0.1-1.2) % Neut # (Auto) 6.56 H (1.78-5.38) K/mm3 Lymph # (Auto) 1.04 L (1.32-3.57) K/mm3 [place] # (Auto) 0.69 (0.30-0.82) K/mm3 Eos # (Auto) 0.13 (0.04-0.54) K/mm3 Baso # (Auto) 0.02 (0.01-0.08) K/mm3 Sodium 143 (136-145) mEq/L Potassium 4.1 (3.5-5.1) mEq/L Chloride 110 H (98-107) mEq/L Carbon Dioxide 27 (21-32) mEq/L Anion Gap 10.1 (5-15) BUN 25 H (7-18) mg/dL Creatinine 1.5 H (0.7-1.3) mg/dL Est Cr Clr Drug Dosing 30.72 mL/min Estimated GFR (MDRD) 44 (>60) mL/min BUN/Creatinine Ratio 16.7 (14-18) Glucose 115 (83-115) mg/dL Calcium 8.2 L (8.5-10.1) mg/dL Magnesium 1.8 (1.8-2.4) mg/dl Med Orders - Current: Current Medications Acetaminophen (Tylenol) 650 mg PO Q4H PRN PRN Reason: Pain (Mild 1-3)/fever Acetaminophen (Tylenol) 975 mg PO BEDTIME [facility] Last Admin: 09/01/17 20:19 Dose: 975 mg Hydrocodone Bitart/Acetaminophen (Davis 325-5 Mg) 1 tab PO Q4H PRN PRN Reason: Pain (moderate 4-6) Last Admin: 09/02/17 10:17 Dose: 1 tab Albuterol (Proventil Neb Soln) 2.5 mg NEB Q2H PRN PRN Reason: Shortness Of Breath/wheezing Aspirin (Halfprin) 81 mg PO DAILY [facility] Last Admin: 09/02/17 09:15 Dose: 81 mg Carvedilol (Coreg) 3.125 mg PO BID [facility] Last Admin: 09/02/17 09:15 Dose: 3.125 mg Clopidogrel Bisulfate (Plavix) 75 mg PO DAILY [facility] Last Admin: 09/02/17 09:12 Dose: 75 mg Diphenhydramine HCl (Benadryl) 50 mg PO BEDTIME [facility] Last Admin: 09/01/17 20:17 Dose: 50 mg Ferrous Sulfate (Ferrous Sulfate) 325 mg PO DAILY [facility] Last Admin: 09/02/17 09:12 Dose: 325 mg Gabapentin (Neurontin) 600 mg PO BEDTIME [facility] Last Admin: 09/01/17 20:19 Dose: 600 mg Hydromorphone HCl (Dilaudid) 0.25 mg IVPUSH Q2H PRN PRN Reason: Pain (severe 7-10) Promethazine HCl 12.5 mg/ (Sodium Chloride) 50.5 mls @ 100 mls/hr IV Q6H PRN PRN Reason: Nausea/Vomiting Isosorbide Mononitrate (Imdur) 30 mg PO BEDTIME [facility] Last Admin: 09/01/17 20:19 Dose: 30 mg Levothyroxine Sodium (Levothyroxine) 75 mcg PO DAILY@1200 [facility] Last Admin: 09/02/17 12:26 Dose: 75 mcg Lorazepam (Ativan) 0.25 mg IV Q6H PRN PRN Reason: Anxiety Losartan Potassium (Cozaar) 50 mg PO DAILY [facility] Last Admin: 09/02/17 09:17 Dose: 50 mg Magnesium Hydroxide (Milk Of Magnesia) 5 ml PO DAILY PRN PRN Reason: Constipation Ondansetron HCl (Zofran) 4 mg IV Q6H PRN PRN Reason: Nausea/Vomiting Pantoprazole Sodium (Protonix) 40 mg PO BIDMEALS [facility] Last Admin: 09/02/17 06:05 Dose: 40 mg Rosuvastatin Calcium (Crestor) 20 mg PO BEDTIME [facility] Last Admin: 09/01/17 20:18 Dose: 20 mg Sertraline HCl (Zoloft) 50 mg PO DAILY [facility] Last Admin: 09/02/17 09:15 Dose: 50 mg Tamsulosin HCl (Flomax) 0.4 mg PO BEDTIME [facility] Last Admin: 09/01/17 20:18 Dose: 0.4 mg Temazepam (Restoril) 7.5 mg PO BEDTIME PRN PRN Reason: Sleep Discontinued Medications Acetaminophen (Tylenol) Confirm Administered Dose 650 mg .ROUTE .STK-MED ONE Stop: 08/31/17 22:53 Last Admin: 08/31/17 23:45 Dose: Not Given Aspirin (Ecotrin) 325 mg PO DAILY [facility] Last Admin: 08/31/17 13:18 Dose: Not Given Furosemide (Lasix) 20 mg IVPUSH ONETIME ONE Stop: 09/01/17 10:41 Last Admin: 09/01/17 11:04 Dose: 20 mg Furosemide (Lasix) 20 mg IVPUSH NOW ONE Stop: 09/01/17 11:40 Last Admin: 09/01/17 13:48 Dose: Not Given Sodium Chloride (Normal Saline) 1,000 mls @ 999 mls/hr IV ONETIME ONE Stop: 08/31/17 04:03 Last Admin: 08/31/17 03:09 Dose: 999 mls/hr Sodium Chloride (Normal Saline) 1,000 mls @ 999 mls/hr IV ONETIME ONE Stop: 08/31/17 05:22 Last Admin: 08/31/17 04:25 Dose: 999 mls/hr Sodium Chloride (Normal Saline) 1,000 mls @ 200 mls/hr IV ASDIRECTED [facility] Last Admin: 09/01/17 05:32 Dose: 200 mls/hr - Exam General: Reports: Alert, Oriented HEENT: Reports: Pupils Equal, Pupils Reactive, EOMI, Mucous Membr. Moist/[place] Neck: Reports: Supple Lungs: Reports: Clear to Auscultation, Normal Respiratory Effort Cardiovascular: Reports: Regular Rate, Regular Rhythm GI/Abdominal Exam: Normal Bowel Sounds, Soft, Non-Tender, No Organomegaly, No Distention, No Abnormal Bruit, No Mass, Pelvis Stable (Male) Exam: Deferred Rectal (Males) Exam: Deferred Back Exam: Reports: Normal Inspection, Full Range of Motion Extremities: Normal Inspection, Normal Range of Motion, Non-Tender, No Pedal Edema, Normal Capillary Refill Skin: Reports: Warm, Dry, Intact Neurological: Reports: No New Focal Deficit Psy/Mental Status: Reports: Alert, Normal Affect, Normal Mood *Q Meaningful Use (DIS) - VTE *Q VTE Criteria *Q: - Stroke *Q Stroke Criteria *Q: - AMI *Q AMI Criteria *Q:
[2017-09-02 12:56] VITALS: BP 114/88
== END 2017-09-02 13:22 | disposition home or self-care (01) | DRG 379 ==
LOC: JD.ED 02:11 → UNDOADMIN 05:45 → JD.MS 05:45
PROVIDERS: ADMIT Internal Medicine; ATTEND Internal Medicine
DX: K92.1 Melena (principal); I95.1 Orthostatic hypotension; M19.90 Unspecified osteoarthritis, unspecified site; H54.7 Unspecified visual loss; I25.10 Atherosclerotic heart disease of native coronary artery without angina pectoris; I12.9 Hypertensive chronic kidney disease with stage 1 through stage 4 chronic kidney disease, or unspecified chronic kidney disease; E78.00 Pure hypercholesterolemia, unspecified; I10 Essential (primary) hypertension; N18.3 Chronic kidney disease, stage 3 (moderate); Z87.891 Personal history of nicotine dependence; Z95.5 Presence of coronary angioplasty implant and graft; K21.9 Gastro-esophageal reflux disease without esophagitis; K57.90 Diverticulosis of intestine, part unspecified, without perforation or abscess without bleeding; N40.0 Benign prostatic hyperplasia without lower urinary tract symptoms; Z68.30 Body mass index [BMI] 30.0-30.9, adult; E03.9 Hypothyroidism, unspecified; F32.9 Major depressive disorder, single episode, unspecified; E66.9 Obesity, unspecified; Z68.36 Body mass index [BMI] 36.0-36.9, adult; Z66 Do not resuscitate; Z96.641 Presence of right artificial hip joint; Z86.711 Personal history of pulmonary embolism; Z79.02 Long term (current) use of antithrombotics/antiplatelets; Z79.82 Long term (current) use of aspirin; Z79.899 Other long term (current) drug therapy
CPT/HCPCS: 36415; 80053; 85025; 85610; 85730; J7040 ×2; 80048; 82270; 82962; 83735; 85014; 85018; 86850; 86900; 86901; 87641; 93970; 93970-26; 96360; 96361; 97161-GP; 97165-GO; 99285; 99285-25; A9270-GY

== ENCOUNTER 2017-09-02 16:24 | Inpatient (IN) | payer MEDICARE, OTHER ==
[2017-09-02] MEDS ORDERED: Sodium Chloride 0.9% 1,000 ML IV SCH (17:00)
[2017-09-02] MEDS: Sodium Chloride 0.9% 10 ML Syringe FLUSH PRN (17:04)
--- NOTE | 2017-09-02 17:17 | EDM.PDOC ---
ED HPI GENERAL MEDICAL PROBLEM - General Chief Complaint: Gastrointestinal Problem Stated Complaint: BLOODY STOOLS Time Seen by Provider: 09/02/17 16:35 Source of Information: Reports: Patient History Limitations: Reports: No Limitations - History of Present Illness INITIAL COMMENTS - FREE TEXT/NARRATIVE: The patient presents with lower abdominal pain and rectal bleeding. The patient was admitted to the hospital 2 days ago for the same. He was discharge this afternoon and he went home and he had more bleeding and lower abdominal pain. He denies fever, chills, cough, chest pain, shortness of breath, nausea or vomiting. He had an EGD and colonoscopy [place] [address] Enamorado. She took a couple polyps out at that time. Onset: Gradual Duration: Day(s): (2) Location: Reports: Abdomen (Lower) Quality: Reports: Ache Severity: Moderate Improves with: Reports: None Worsens with: Reports: None Associated Symptoms: Denies: Chest Pain, Cough, Fever/Chills, Nausea/Vomiting, Shortness of Breath Bilateral Lower Abdomen Pain Score (Numeric/FACES): 6 - Related Data Allergies Allergy/AdvReac Type Severity Reaction Status Date / Time No Known Allergies Allergy Verified 09/02/17 16:37 Home Meds: Home Meds Furosemide [Lasix] 20 mg PO DAILY 03/27/14 [History] Levothyroxine [Synthroid] 75 mcg PO DAILY 03/27/14 [History] Losartan [Cozaar] 50 mg PO DAILY 03/27/14 [History] Sertraline [Zoloft] 50 mg PO DAILY 03/27/14 [History] Gabapentin 600 mg PO BEDTIME 03/19/15 [History] Acetaminophen/Diphenhydramine [Tylenol Pm Ex-Strength Caplet] 2 tab PO BEDTIME 08/22/17 [History] Carvedilol [Coreg] 3.125 mg PO BID 08/22/17 [History] Clopidogrel [Plavix] 75 mg PO DAILY 08/22/17 [History] Docusate Sodium [Colace] 200 mg PO DAILY 08/22/17 [History] Ferrous Sulfate 325 mg PO DAILY 08/22/17 [History] Isosorbide Mononitrate [Ismo] 30 mg PO BEDTIME 08/22/17 [History] Magnesium Hydroxide [Milk of Magnesia] 5 ml PO DAILY PRN 08/22/17 [History] Pantoprazole [ProTONIX] 40 mg PO BID 08/22/17 [History] Rosuvastatin Calcium 20 mg PO DAILY 08/22/17 [History] Tamsulosin [Flomax] 0.4 mg PO BEDTIME 08/22/17 [History] Acetaminophen [Tylenol] 650 mg PO Q6H PRN #60 tablet 09/02/17 [Rx] Aspirin [Halfprin] 81 mg PO DAILY #30 tab.ec 09/02/17 [Rx] Past Medical History HEENT History: Reports: Impaired Vision Other HEENT History: reading glasses Cardiovascular History: Reports: High Cholesterol, Hypertension Other Cardiovascular History: atherosclerotic heart disease Respiratory History: Reports: PE Gastrointestinal History: Reports: GERD, GI Bleed, Inflammatory Bowel Disease Other Gastrointestinal History: colitis, hernia Genitourinary History: Reports: BPH Musculoskeletal History: Reports: None Psychiatric History: Reports: Depression Endocrine/Metabolic History: Reports: Hypothyroidism, Obesity/BMI 30+ - Infectious Disease History Infectious Disease History: Reports: None - Past Surgical History HEENT Surgical History: Reports: Cataract Surgery GI Surgical History: Reports: Appendectomy, Cholecystectomy, Hernia, Abdominal Musculoskeletal Surgical History: Reports: Hip Replacement Other Musculoskeletal Surgeries/Procedures:: R Hip Social & Family History - Family History Family Medical History: Noncontributory - Tobacco Use Smoking Status *Q: Never Smoker Years of Tobacco use: 6 Packs/Tins Daily: 0.5 Used Tobacco, but Quit: Yes Month Tobacco Last Used: 0 Second Hand Smoke Exposure: No - Caffeine Use Caffeine Use: Reports: Coffee Other Caffeine Use: one daily - Alcohol Use Days Per Week of Alcohol Use: 0 - Recreational Drug Use Recreational Drug Use: No - Living Situation & Occupation Living situation: Reports: , Assisted Living ([facility]) Occupation: Retired ED ROS GENERAL - Review of Systems Review Of Systems: See Below Constitutional: Reports: No Symptoms HEENT: Reports: No Symptoms Respiratory: Reports: No Symptoms Cardiovascular: Reports: No Symptoms Endocrine: Reports: No Symptoms GI/Abdominal: Reports: Abdominal Pain, Bloody Stool. Denies: Nausea, Vomiting : Reports: No Symptoms Musculoskeletal: Reports: No Symptoms Skin: Reports: No Symptoms Neurological: Reports: No Symptoms ED EXAM, GI/ABD - Physical Exam Exam: See Below Exam Limited By: No Limitations General Appearance: Alert, No Apparent Distress Ears: Normal External Exam Nose: Normal Inspection Head: Atraumatic, Normocephalic Neck: Normal Inspection Respiratory/Chest: No Respiratory Distress, Lungs Clear, Normal Breath Sounds Cardiovascular: Regular Rate, Rhythm, No Edema, No Murmur GI/Abdominal Exam: Soft, No Organomegaly, No Mass, Tender (Mild to moderate pain to the lower abdomen) Course - Vital Signs Last Recorded V/S: Last Vital Signs Temp 97.6 F 09/02/17 16:34 Pulse 69 09/02/17 16:34 Resp 20 09/02/17 16:34 BP 134/46 L 09/02/17 16:34 Pulse Ox 94 L 09/02/17 16:34 - Orders/Labs/Meds Orders: Active Orders 24 hr Category Date Time Status Peripheral IV Care [RC] . DIRECTED Care 09/02/17 16:50 Active Abdomen Pelvis wo Cont [CT] Stat Exams 09/02/17 16:52 Taken UA W/MICROSCOPIC [URIN] Stat Lab 09/02/17 18:42 Received Sodium Chloride 0.9% [Normal Saline] 1,000 ml Med 09/02/17 17:00 Active IV ASDIRECTED Sodium Chloride 0.9% [Saline Flush] Med 09/02/17 16:49 Active 10 ml FLUSH ASDIRECTED PRN Peripheral IV Insertion Adult [OM.PC] Stat Oth 09/02/17 16:49 Ordered Medication Orders Sodium Chloride (Normal Saline) 1,000 mls @ 125 mls/hr IV ASDIRECTED JERSON Last Admin: 09/02/17 17:04 Dose: 125 mls/hr Sodium Chloride (Saline Flush) 10 ml FLUSH ASDIRECTED PRN PRN Reason: Keep Vein Open Last Admin: 09/02/17 17:04 Dose: 10 ml Labs: Laboratory Tests 09/02/17 09/02/17 Range/Units 17:19 17:19 WBC 10.50 H (4.23-9.07) K/mm3 RBC 3.31 L (4.63-6.08) M/mm3 Hgb 9.2 L (13.7-17.5) gm/L Hct 29.4 L (40.1-51.0) % MCV 88.8 (79.0-92.2) fl MCH 27.8 (25.7-32.2) pg MCHC 31.3 L (32.2-35.5) g/dl RDW Std Deviation 46.4 H (35.1-43.9) fL Plt Count 211 (163-337) K/mm3 MPV 10.0 (9.4-12.3) fl Neut % (Auto) 78.0 H (34.0-67.9) % Lymph % (Auto) 9.7 L (21.8-53.1) % [place] % (Auto) 10.0 (5.3-12.2) % Eos % (Auto) 1.4 (0.8-7.0) Baso % (Auto) 0.2 (0.1-1.2) % Neut # (Auto) 8.19 H (1.78-5.38) K/mm3 Lymph # (Auto) 1.02 L (1.32-3.57) K/mm3 [place] # (Auto) 1.05 H (0.30-0.82) K/mm3 Eos # (Auto) 0.15 (0.04-0.54) K/mm3 Baso # (Auto) 0.02 (0.01-0.08) K/mm3 Manual Slide Review Abnormal smear Sodium 142 (136-145) mEq/L Potassium 4.2 (3.5-5.1) mEq/L Chloride 109 H (98-107) mEq/L Carbon Dioxide 28 (21-32) mEq/L Anion Gap 9.2 (5-15) BUN 24 H (7-18) mg/dL Creatinine 1.4 H (0.7-1.3) mg/dL Est Cr Clr Drug Dosing 32.91 mL/min Estimated GFR (MDRD) 48 (>60) mL/min BUN/Creatinine Ratio 17.1 (14-18) Glucose 97 (83-115) mg/dL Calcium 8.2 L (8.5-10.1) mg/dL Total Bilirubin 0.4 (0.2-1.0) mg/dL AST 15 (15-37) U/L ALT 12 L (16-63) U/L Alkaline Phosphatase 53 (46-116) U/L Total Protein 5.7 L (6.4-8.2) g/dl Albumin 2.7 L (3.4-5.0) g/dl Globulin 3.0 gm/dL Albumin/Globulin Ratio 0.9 L (1-2) Lipase 65 L (73-393) U/L Meds: Medications Generic Name Dose Route Start Last Admin Trade Name Freq PRN Reason Stop Dose Admin Sodium Chloride 1,000 mls @ 125 mls/hr 09/02/17 17:00 09/02/17 17:04 Normal Saline IV 125 mls/hr ASDIRECTED JERSON Administration Sodium Chloride 10 ml 09/02/17 16:49 09/02/17 17:04 Saline Flush FLUSH 10 ml ASDIRECTED PRN Administration Keep Vein Open Discontinued Medications Generic Name Dose Route Start Last Admin Trade Name Freq PRN Reason Stop Dose Admin Diatrizoate Meglum/Diatrizoate Sod 90 ml 09/02/17 17:39 09/02/17 18:26 Gastrografin 37% PO 09/02/17 17:40 90 ml ONETIME ONE Administration - Re-Assessments/Exams Free Text/Narrative Re-Assessment/Exam: 09/02/17 17:19 I ordered an IV NS at 125mL/hr, labs, and a CT of his abdomen and pelvis. 09/02/17 19:07 His WBC was elevated at 10.5. His Hgb was low at 9.2. His platelets were normal at 211. His creatinine was slightly elevated at 1.4. His lipase was low. His CT shows no acute changes. I talked to his family and him that he will need a colonoscopy. The patient had another bloody stool. I called Dr Blevins and he agreed to the admission. Departure - Departure Time of Disposition: 19:10 Disposition: Admitted As Inpatient 65 Condition: Fair Clinical Impression: Lower GI bleed, Renal insufficiency Anemia Qualifiers: Anemia type: other cause Other causes of anemia: other cause, not classified Qualified Code(s): D64.89 - Other specified anemias - Discharge Information Referrals: Anton Jones MD [Primary Care Provider] - Forms: ED Department Discharge - My Orders Last 24 Hours: My Active Orders 09/02/17 16:49 Sodium Chloride 0.9% [Saline Flush] 10 ml FLUSH ASDIRECTED PRN Peripheral IV Insertion Adult [OM.PC] Stat 09/02/17 16:50 Peripheral IV Care [RC] . DIRECTED 09/02/17 16:52 Abdomen Pelvis wo Cont [CT] Stat 09/02/17 17:00 Sodium Chloride 0.9% [Normal Saline] 1,000 ml IV ASDIRECTED 09/02/17 18:42 UA W/MICROSCOPIC [URIN] Stat - Assessment/Plan Last 24 Hours: My Active Orders 09/02/17 16:49 Sodium Chloride 0.9% [Saline Flush] 10 ml FLUSH ASDIRECTED PRN Peripheral IV Insertion Adult [OM.PC] Stat 09/02/17 16:50 Peripheral IV Care [RC] . DIRECTED 09/02/17 16:52 Abdomen Pelvis wo Cont [CT] Stat 09/02/17 17:00 Sodium Chloride 0.9% [Normal Saline] 1,000 ml IV ASDIRECTED 09/02/17 18:42 UA W/MICROSCOPIC [URIN] Stat
[2017-09-02] MEDS ORDERED: Diatrizoate Meglumine/Diatrizoate Sodium 37% 120 ML Bottle PO ONE (17:39)
[2017-09-02] MEDS ORDERED: Ondansetron 4 MG/2 ML SDV IV PRN (19:54)
[2017-09-02] MEDS ORDERED: Morphine 2 MG/ML Syringe IVPUSH PRN (19:54)
[2017-09-02] MEDS ORDERED: hydrALAZINE 20 MG/ML SDV IVPUSH PRN (20:08)
[2017-09-02] MEDS ORDERED: Polyethylene Glycol/Electrolytes 4,000 ML Bottle PO ONE (20:12)
--- NOTE | 2017-09-02 20:19 | PCM.HP ---
H&P History of Present Illness - General Date of Service: 09/02/17 Admit Problem/Dx: Admission Diagnosis/Problem Admission Diagnosis/Problem Gastrointestinal hemorrhage Source of Information: Patient, Old Records History Limitations: Reports: No Limitations - History of Present Illness Initial Comments - Free Text/Narative: Patient is an 87-year-old man who was discharged from this hospital today after he was admitted for bleeding per rectum. He had presented to the emergency room with bleeding per rectum on August 31, 2017 and was subsequently admitted for evaluation and treatment. Surgery consult was requested and patient was seen by Dr. Ortega who advised patient that it will be medically necessary to do a colonoscopy on him. Patient refused as he wanted to see his primary care physician and if needed to get it done today. He was monitored with serial hemoglobin and hematocrit check. His hemoglobin was noted to decrease from initial level of [phone] where it stabilized. He got volume resuscitation with IV 0.9% normal saline and by this morning he stated that he had not seen any blood in his stool for the previous 2 days. He requested to be discharged as he was stable and he was discharged home to follow up with his primary care physician. His son called the medicine floor and requested that patient be readmitted as he had started bleeding again rectum and is now willing to have the colonoscopy done. He was then advised to come back to the emergency room to be readmitted. I discussed with the patient and he tells me that he is willing to have colonoscopy done if that will help him. I contacted Dr. Ortega and he is willing to see the patient tomorrow for possible colonoscopy. He will be admitted to the ICU for further evaluation. Laboratory investigations done at the emergency room revealed that his hemoglobin remains stable. Bilateral Lower Abdomen Pain Score (Numeric/FACES): 6 - Related Data Allergies/Adverse Reactions: Allergies Allergy/AdvReac Type Severity Reaction Status Date / Time No Known Allergies Allergy Verified 09/02/17 16:37 Home Medications: Home Meds Furosemide [Lasix] 20 mg PO DAILY 03/27/14 [History] Levothyroxine [Synthroid] 75 mcg PO DAILY 03/27/14 [History] Losartan [Cozaar] 50 mg PO DAILY 03/27/14 [History] Sertraline [Zoloft] 50 mg PO DAILY 03/27/14 [History] Gabapentin 600 mg PO BEDTIME 03/19/15 [History] Acetaminophen/Diphenhydramine [Tylenol Pm Ex-Strength Caplet] 2 tab PO BEDTIME 08/22/17 [History] Carvedilol [Coreg] 3.125 mg PO BID 08/22/17 [History] Clopidogrel [Plavix] 75 mg PO DAILY 08/22/17 [History] Docusate Sodium [Colace] 200 mg PO DAILY 08/22/17 [History] Ferrous Sulfate 325 mg PO DAILY 08/22/17 [History] Isosorbide Mononitrate [Ismo] 30 mg PO BEDTIME 08/22/17 [History] Magnesium Hydroxide [Milk of Magnesia] 5 ml PO DAILY PRN 08/22/17 [History] Pantoprazole [ProTONIX] 40 mg PO BID 08/22/17 [History] Rosuvastatin Calcium 20 mg PO DAILY 08/22/17 [History] Tamsulosin [Flomax] 0.4 mg PO BEDTIME 08/22/17 [History] Acetaminophen [Tylenol] 650 mg PO Q6H PRN #60 tablet 09/02/17 [Rx] Aspirin [Halfprin] 81 mg PO DAILY #30 tab.ec 09/02/17 [Rx] Past Medical History HEENT History: Reports: Impaired Vision Other HEENT History: reading glasses Cardiovascular History: Reports: High Cholesterol, Hypertension Other Cardiovascular History: atherosclerotic heart disease Respiratory History: Reports: PE Gastrointestinal History: Reports: GERD, GI Bleed, Inflammatory Bowel Disease Other Gastrointestinal History: colitis, hernia Genitourinary History: Reports: BPH Musculoskeletal History: Reports: None Psychiatric History: Reports: Depression Endocrine/Metabolic History: Reports: Hypothyroidism, Obesity/BMI 30+ - Infectious Disease History Infectious Disease History: Reports: None - Past Surgical History HEENT Surgical History: Reports: Cataract Surgery GI Surgical History: Reports: Appendectomy, Cholecystectomy, Hernia, Abdominal Musculoskeletal Surgical History: Reports: Hip Replacement Other Musculoskeletal Surgeries/Procedures:: R Hip Social & Family History - Family History Family Medical History: Noncontributory - Tobacco Use Smoking Status *Q: Never Smoker Years of Tobacco use: 6 Packs/Tins Daily: 0.5 Used Tobacco, but Quit: Yes Month Tobacco Last Used: 0 Second Hand Smoke Exposure: No - Caffeine Use Caffeine Use: Reports: Coffee Other Caffeine Use: one daily - Alcohol Use Days Per Week of Alcohol Use: 0 - Recreational Drug Use Recreational Drug Use: No - Living Situation & Occupation Living situation: Reports: , Assisted Living ([facility]) Occupation: Retired H&P Review of Systems - Review of Systems: Review Of Systems: See Below General: Reports: No Symptoms HEENT: Reports: No Symptoms Pulmonary: Reports: No Symptoms Cardiovascular: Reports: No Symptoms Gastrointestinal: Reports: Bloody Stool Genitourinary: Reports: No Symptoms Musculoskeletal: Reports: No Symptoms Skin: Reports: No Symptoms Psychiatric: Reports: No Symptoms Neurological: Reports: No Symptoms Hematologic/Lymphatic: Reports: No Symptoms Immunologic: Reports: No Symptoms Exam - Exam Exam: See Below - Vital Signs Vital Signs: Last Vital Signs Temp 97.6 F 09/02/17 16:34 Pulse 69 09/02/17 16:34 Resp 20 09/02/17 16:34 BP 134/46 L 09/02/17 16:34 Pulse Ox 94 L 09/02/17 16:34 Weight: 103.419 kg - Exam General: Alert, Oriented, Cooperative HEENT: PERRLA, Hearing Intact, Mucosa Moist & [place], Nares Patent, Normal Nasal Septum, Posterior Pharynx Clear, Conjunctiva Clear, EOMI, EACs Clear, TMs Clear Neck: Supple, Trachea Midline, 2 Lungs: Clear to Auscultation, Normal Respiratory Effort Cardiovascular: Regular Rate, Regular Rhythm GI/Abdominal Exam: Normal Bowel Sounds, Soft, Non-Tender, No Organomegaly, No Distention, No Abnormal Bruit, No Mass, Pelvis Stable (Male) Exam: Deferred Rectal (Males) Exam: Normal Rectal Tone, Heme + Stool Back Exam: Normal Inspection, Full Range of Motion, NT Extremities: Normal Inspection, Normal Range of Motion, Non-Tender, No Pedal Edema, Normal Capillary Refill Peripheral Pulses: 2+: Carotid (L), Carotid (R), Brachial (L), Brachial (R), Radial (L), Radial (R), Femoral (L), Femoral (R), Popliteal (L), Popliteal (R), Posterior Tibial (L), Posterior Tibial (R), Dorsalis Pedis (L), Dorsalis Pedis ( R) Skin: Warm, Dry, Intact Neurological: Cranial Nerves Intact, Reflexes Equal Bilateral Neuro Extensive - Mental Status: Alert, Oriented x3, Normal Mood/Affect, Normal Cognition Neuro Extensive - Motor, Sensory, Reflexes: CN II-XII Intact, Normal Gait, Normal Reflexes DTR: 2+: Bicep (L), Bicep (R), Tricep (L), Tricep (R), Patella (L), Patella (R) , Achilles (L), Achilles (R) Psychiatric: Alert, Normal Affect, Normal Mood - Patient Data Result Diagrams: 09/02/17 17:19 09/02/17 17:19 *Q Meaningful Use (ADM) - VTE *Q VTE Criteria *Q: - Stroke *Q Stroke Criteria *Q: - AMI *Q AMI Criteria *Q: - Problem List (1) GI bleed SNOMED Code(s): 60149717 ICD Code: K92.2 - GASTROINTESTINAL HEMORRHAGE, UNSPECIFIED Status: Acute Priority: High Current Visit: Yes Qualifiers: GI bleed type/associated pathology: unspecified gastrointestinal hemorrhage type Qualified Code(s): K92.2 - Gastrointestinal hemorrhage, unspecified (2) Anemia SNOMED Code(s): 942431141 ICD Code: D64.9 - ANEMIA, UNSPECIFIED Status: Acute Priority: High Current Visit: Yes Qualifiers: Anemia type: other cause Other causes of anemia: other cause, not classified Qualified Code(s): D64.89 - Other specified anemias Problem List Initiated/Reviewed/Updated: Yes Orders Last 24hrs: Active Orders 24 hr Category Date Time Status Patient Status [ADT] Routine ADT 09/02/17 19:54 Ordered Antiembolic Devices [RC] PER UNIT ROUTINE Care 09/02/17 20:03 Ordered Bedrest Bathroom Privileges [RC] ASDIRECTED Care 09/02/17 19:54 Ordered Blood Glucose Check, Bedside [RC] Q6H Care 09/02/17 19:54 Ordered Notify Provider Consults [RC] ASDIRECTED Care 09/02/17 20:05 Ordered Oxygen Therapy [RC] PRN Care 09/02/17 19:54 Ordered VTE/DVT Education [RC] PER UNIT ROUTINE Care 09/02/17 19:54 Ordered Vital Signs [RC] Q4H Care 09/02/17 19:54 Ordered Consult to Physician [CONS] Routine Cons 09/02/17 19:54 Ordered Nothing per Oral After Midnight Diet [DIET] Diet 09/03/17 Breakfast Ordered BASIC METABOLIC PANEL,BMP [CHEM] AM Lab 09/03/17 05:11 Ordered CBC WITH AUTO DIFF [HEME] AM Lab 09/03/17 05:11 Ordered CULTURE URINE [RM] Stat Lab 09/02/17 19:54 Uncollected Dextrose 5%-Normal Saline @ 100 MLS/HR(1000ml) Med 09/02/17 20:00 Ordered Dextrose 5%-0.9% NaCl [Dextrose 5%-Normal Saline] 1,000 ml IV ASDIRECTED KCl/Na Sulf,Bicarb,Cl/PEG 3351 [GoLytely] Med 09/02/17 20:12 Once 4,000 ml PO ONETIME ONE Morphine Med 09/02/17 19:54 Ordered 2 mg IVPUSH Q2H PRN Ondansetron [Zofran] Med 09/02/17 19:54 Ordered 4 mg IV Q6H PRN Pantoprazole [ProTONIX IV] Med 09/02/17 21:00 Ordered 40 mg IV Q12HR hydrALAZINE [Apresoline] Med 09/02/17 20:08 Ordered 10 mg IVPUSH Q2H PRN Sequential Compression Device [OM.PC] Per Unit Routine Oth 09/02/17 19:59 Ordered Resuscitation Status Routine Resus Stat 09/02/17 19:54 Ordered Medication Orders Hydralazine HCl (Apresoline) 10 mg IVPUSH Q2H PRN PRN Reason: Hypertension Sodium Chloride (Normal Saline) 1,000 mls @ 125 mls/hr IV ASDIRECTED [facility]ERSON Last Admin: 09/02/17 17:04 Dose: 125 mls/hr Dextrose/Sodium Chloride (Dextrose 5%-Normal Saline) 1,000 mls @ 100 mls/hr IV ASDIRECTED JERSON Morphine Sulfate (Morphine) 2 mg IVPUSH Q2H PRN PRN Reason: Pain (severe 7-10) Stop: 09/03/17 20:02 Ondansetron HCl (Zofran) 4 mg IV Q6H PRN PRN Reason: Nausea/Vomiting Pantoprazole Sodium (Protonix Iv) 40 mg IV Q12HR JERSON Polyethylene Glycol/Electrolytes (Golytely) 4,000 ml PO ONETIME ONE Stop: 09/02/17 20:13 Sodium Chloride (Saline Flush) 10 ml FLUSH ASDIRECTED PRN PRN Reason: Keep Vein Open Last Admin: 09/02/17 17:04 Dose: 10 ml Assessment/Plan Comment:: Assessment: 1. Gastrointestinal hemorrhage. 2. Anemia of blood loss. Plan: 1. Admit patient to ICU for close monitoring. 2. IV fluid hydration with 0.9% normal saline to interchange with D5 normal saline at 100 mL per hour. 3. IV Protonix 40 mg twice daily. 4. Nothing by mouth after midnight. 5. Bowel prep with GoLYTELY for possible colonoscopy in a.m. Recheck CBC and BMP in a.m. 6. Dr. Ortega notified and promises to see patient in the morning. 7. DVT prophylaxis with SCDs. Pharmacologic anticoagulation contraindicated due to GI bleed. 8. CODE STATUS: DNR/DNI.
[2017-09-02] MEDS ORDERED: Bisacodyl 5 MG Tab PO ONE (21:13)
[2017-09-02] MEDS ORDERED: Magnesium Citrate Solution 296 ML Bottle PO ONE (21:14)
[2017-09-02] MEDS: Pantoprazole 40 MG Vial IV SCH (21:53)
[2017-09-03] MEDS: Dextrose 5%-0.9% NaCl 1,000 ML IV SCH ×2 (03:10→14:52)
[2017-09-03] MEDS: Sodium Chloride 0.9% 10 ML Syringe FLUSH PRN (03:15)
--- NOTE | 2017-09-03 08:18 | PCM.PREANE ---
Preanesthetic Assessment - Procedure Proposed Procedure: Diagnostic EGD/ Colonoscopy - Anesthesia/Transfusion/Family Hx Anesthesia History: Prior Anesthesia Without Reaction Family History of Anesthesia Reaction: No Transfusion History: Prior Transfusion Without Reaction - Review of Systems General: No Symptoms Pulmonary: Other (hx of PE) Cardiovascular: Other (HTN, HLD, atherosclerotic heart disease) Gastrointestinal: Hematochezia, Other (GERD) Neurological: No Symptoms Other: Reports: Easy Bleeding, Easy Bruising, Thyroid Problems (hypothyroid), Depression - Physical Assessment NPO Status Date: 09/02/17 NPO Status Time: 22:00 O2 Sat by Pulse Oximetry: 99 Respiratory Rate: 20 Vital Signs: Last Vital Signs Temp 36.1 C 09/03/17 03:08 Pulse 70 09/03/17 03:08 Resp 20 09/03/17 03:08 BP 139/63 09/03/17 03:08 Pulse Ox 99 09/03/17 03:08 Height: 1.68 m Weight: 102.875 kg ASA Class: 3 Mental Status: Alert & Oriented x3 Airway Class: Mallampati = 2 Dentition: Reports: Dentures (upper ), Partial (lower ) Thyro-Mental Finger Breadths: 3 Mouth Opening Finger Breadths: 3 ROM/Head Extension: Full Lungs: Clear to Auscultation, Normal Respiratory Effort Cardiovascular: Regular Rate, Regular Rhythm (OCC PVC on the monitor) - Lab Values: Laboratory Last Values WBC 9.59 K/mm3 (4.23-9.07) H 09/03/17 06:03 RBC 3.52 M/mm3 (4.63-6.08) L 09/03/17 06:03 Hgb 9.6 gm/L (13.7-17.5) L 09/03/17 06:03 Hct 31.5 % (40.1-51.0) L 09/03/17 06:03 MCV 89.5 fl (79.0-92.2) 09/03/17 06:03 MCH 27.3 pg (25.7-32.2) 09/03/17 06:03 MCHC 30.5 g/dl (32.2-35.5) L 09/03/17 06:03 RDW Std Deviation 47.2 fL (35.1-43.9) H 09/03/17 06:03 Plt Count 203 K/mm3 (163-337) 09/03/17 06:03 MPV 9.9 fl (9.4-12.3) 09/03/17 06:03 Neut % (Auto) 80.1 % (34.0-67.9) H 09/03/17 06:03 Lymph % (Auto) 10.4 % (21.8-53.1) L 09/03/17 06:03 [place] % (Auto) 6.8 % (5.3-12.2) 09/03/17 06:03 Eos % (Auto) 1.8 (0.8-7.0) 09/03/17 06:03 Baso % (Auto) 0.2 % (0.1-1.2) 09/03/17 06:03 Neut # (Auto) 7.68 K/mm3 (1.78-5.38) H 09/03/17 06:03 Lymph # (Auto) 1.00 K/mm3 (1.32-3.57) L 09/03/17 06:03 [place] # (Auto) 0.65 K/mm3 (0.30-0.82) 09/03/17 06:03 Eos # (Auto) 0.17 K/mm3 (0.04-0.54) 09/03/17 06:03 Baso # (Auto) 0.02 K/mm3 (0.01-0.08) 09/03/17 06:03 Manual Slide Review Abnormal smear 09/03/17 06:03 Sodium 144 mEq/L (136-145) 09/03/17 06:03 Potassium 4.1 mEq/L (3.5-5.1) 09/03/17 06:03 Chloride 109 mEq/L (98-107) H 09/03/17 06:03 Carbon Dioxide 28 mEq/L (21-32) 09/03/17 06:03 Anion Gap 11.1 (5-15) 09/03/17 06:03 BUN 18 mg/dL (7-18) 09/03/17 06:03 Creatinine 1.2 mg/dL (0.7-1.3) 09/03/17 06:03 Est Cr Clr Drug Dosing 38.40 mL/min 09/03/17 06:03 Estimated GFR (MDRD) 57 mL/min (>60) 09/03/17 06:03 BUN/Creatinine Ratio 15.0 (14-18) 09/03/17 06:03 Glucose 138 mg/dL (83-115) H 09/03/17 06:03 POC Glucose 135 mg/dL (83-110) H 09/03/17 06:02 Calcium 8.3 mg/dL (8.5-10.1) L 09/03/17 06:03 Total Bilirubin 0.4 mg/dL (0.2-1.0) 09/02/17 17:19 AST 15 U/L (15-37) 09/02/17 17:19 ALT 12 U/L (16-63) L 09/02/17 17:19 Alkaline Phosphatase 53 U/L (46-116) 09/02/17 17:19 Total Protein 5.7 g/dl (6.4-8.2) L 09/02/17 17:19 Albumin 2.7 g/dl (3.4-5.0) L 09/02/17 17:19 Globulin 3.0 gm/dL 09/02/17 17:19 Albumin/Globulin Ratio 0.9 (1-2) L 09/02/17 17:19 Lipase 65 U/L (73-393) L 09/02/17 17:19 Urine Color Yellow (Yellow) 09/02/17 18:42 Urine Appearance Clear (Clear) 09/02/17 18:42 Urine pH 5.5 (5.0-8.0) 09/02/17 18:42 Ur Specific [place] 1.020 (1.005-1.030) 09/02/17 18:42 Urine Protein Negative (Negative) 09/02/17 18:42 Urine Glucose (UA) Negative (Negative) 09/02/17 18:42 Urine Ketones Negative (Negative) 09/02/17 18:42 Urine Occult Blood 1+ (Negative) H 09/02/17 18:42 Urine Nitrite Negative (Negative) 09/02/17 18:42 Urine Bilirubin Negative (Negative) 09/02/17 18:42 Urine Urobilinogen 0.2 (0.2-1.0) 09/02/17 18:42 Ur Leukocyte Esterase Trace (Negative) H 09/02/17 18:42 Urine RBC 5-10 /hpf (0-5) H 09/02/17 18:42 Urine WBC 5-10 /hpf (0-5) H 09/02/17 18:42 Ur Epithelial Cells Not seen /hpf (0-5) 09/02/17 18:42 Urine Bacteria Few /hpf (FEW) 09/02/17 18:42 Urine Mucus Moderate /hpf (FEW) H 09/02/17 18:42 - Allergies Allergies/Adverse Reactions: Allergies Allergy/AdvReac Type Severity Reaction Status Date / Time No Known Allergies Allergy Verified 09/02/17 16:37 - Blood Blood Available: No Product(s) Available: None - Anesthesia Plan Pre-Op Medication Ordered: None - Acknowledgements Anesthesia Type Planned: MAC Pt an Appropriate Candidate for the Planned Anesthesia: Yes Alternatives and Risks of Anesthesia Discussed w Pt/Guardian: Yes Pt/Guardian Understands and Agrees with Anesthesia Plan: Yes PreAnesthesia Questionnaire HEENT History: Reports: Impaired Vision Other HEENT History: reading glasses Cardiovascular History: Reports: High Cholesterol, Hypertension Other Cardiovascular History: atherosclerotic heart disease Respiratory History: Reports: PE Gastrointestinal History: Reports: GERD, GI Bleed, Inflammatory Bowel Disease Other Gastrointestinal History: colitis, hernia Genitourinary History: Reports: BPH Musculoskeletal History: Reports: None Psychiatric History: Reports: Depression Endocrine/Metabolic History: Reports: Hypothyroidism, Obesity/BMI 30+ - Infectious Disease History Infectious Disease History: Reports: None - Past Surgical History HEENT Surgical History: Reports: Cataract Surgery GI Surgical History: Reports: Appendectomy, Cholecystectomy, Hernia, Abdominal Musculoskeletal Surgical History: Reports: Hip Replacement Other Musculoskeletal Surgeries/Procedures:: R Hip - SUBSTANCE USE Smoking Status *Q: Never Smoker Tobacco Use Within Last Twelve Months: No Second Hand Smoke Exposure: No Days Per Week of Alcohol Use: 0 Recreational Drug Use History: No - HOME MEDS Home Medications: Home Meds Furosemide [Lasix] 20 mg PO DAILY 03/27/14 [History] Levothyroxine [Synthroid] 75 mcg PO DAILY 03/27/14 [History] Losartan [Cozaar] 50 mg PO DAILY 03/27/14 [History] Sertraline [Zoloft] 50 mg PO DAILY 03/27/14 [History] Gabapentin 600 mg PO BEDTIME 03/19/15 [History] Acetaminophen/Diphenhydramine [Tylenol Pm Ex-Strength Caplet] 2 tab PO BEDTIME 08/22/17 [History] Carvedilol [Coreg] 3.125 mg PO BID 08/22/17 [History] Clopidogrel [Plavix] 75 mg PO DAILY 08/22/17 [History] Docusate Sodium [Colace] 200 mg PO DAILY 08/22/17 [History] Ferrous Sulfate 325 mg PO DAILY 08/22/17 [History] Isosorbide Mononitrate [Ismo] 30 mg PO BEDTIME 08/22/17 [History] Magnesium Hydroxide [Milk of Magnesia] 5 ml PO DAILY PRN 08/22/17 [History] Pantoprazole [ProTONIX] 40 mg PO BID 08/22/17 [History] Rosuvastatin Calcium 20 mg PO DAILY 08/22/17 [History] Tamsulosin [Flomax] 0.4 mg PO BEDTIME 08/22/17 [History] Acetaminophen [Tylenol] 650 mg PO Q6H PRN #60 tablet 09/02/17 [Rx] Aspirin [Halfprin] 81 mg PO DAILY #30 tab.ec 09/02/17 [Rx] - CURRENT (IN HOUSE) MEDS Current Meds: Current Medications Hydralazine HCl (Apresoline) 10 mg IVPUSH Q2H PRN PRN Reason: Hypertension Dextrose/Sodium Chloride (Dextrose 5%-Normal Saline) 1,000 mls @ 100 mls/hr IV ASDIRECTED [facility] Last Admin: 09/03/17 03:10 Dose: 100 mls/hr Morphine Sulfate (Morphine) 2 mg IVPUSH Q2H PRN PRN Reason: Pain (severe 7-10) Stop: 09/03/17 20:02 Ondansetron HCl (Zofran) 4 mg IV Q6H PRN PRN Reason: Nausea/Vomiting Last Admin: 09/03/17 03:14 Dose: 4 mg Pantoprazole Sodium (Protonix Iv) 40 mg IV Q12HR [facility] Last Admin: 09/02/17 21:53 Dose: 40 mg Sodium Chloride (Saline Flush) 10 ml FLUSH ASDIRECTED PRN PRN Reason: Keep Vein Open Last Admin: 09/03/17 03:15 Dose: 10 ml Discontinued Medications Bisacodyl (Dulcolax) 30 mg PO ONETIME ONE Stop: 09/02/17 21:14 Last Admin: 09/02/17 21:52 Dose: 30 mg Diatrizoate Meglum/Diatrizoate Sod (Gastrografin 37%) 90 ml PO ONETIME ONE Stop: 09/02/17 17:40 Last Admin: 09/02/17 18:26 Dose: 90 ml Sodium Chloride (Normal Saline) 1,000 mls @ 125 mls/hr IV ASDIRECTED JERSON Last Admin: 09/02/17 17:04 Dose: 125 mls/hr Magnesium Citrate (Citrate Of Magnesia) 296 ml PO ONETIME ONE Stop: 09/02/17 21:15 Last Admin: 09/02/17 21:53 Dose: 296 ml Polyethylene Glycol/Electrolytes (Golytely) 4,000 ml PO ONETIME ONE Stop: 09/02/17 20:13 Last Admin: 09/02/17 21:46 Dose: Not Given
--- NOTE | 2017-09-03 08:51 | PCM.CONS ---
H&P History of Present Illness - General Date of Service: 09/03/17 Admit Problem/Dx: Admission Diagnosis/Problem Admission Diagnosis/Problem Gastrointestinal hemorrhage Source of Information: Patient - History of Present Illness Initial Comments - Free Text/Narative: 87-year-old male was discharged yesterday with a stable hemodynamic profile and hematocrit. At home he had lower abdominal discomfort followed by what he says was recurrent bleeding per rectum. He was brought back to the emergency room and readmitted after agreeing to proceed with the previously recommended gaona endoscopy. I was asked to see him for these procedures. Bilateral Lower Abdomen Pain Score (Numeric/FACES): 6 - Related Data Allergies/Adverse Reactions: Allergies Allergy/AdvReac Type Severity Reaction Status Date / Time No Known Allergies Allergy Verified 09/02/17 16:37 Home Medications: Home Meds Furosemide [Lasix] 20 mg PO DAILY 03/27/14 [History] Levothyroxine [Synthroid] 75 mcg PO DAILY 03/27/14 [History] Losartan [Cozaar] 50 mg PO DAILY 03/27/14 [History] Sertraline [Zoloft] 50 mg PO DAILY 03/27/14 [History] Gabapentin 600 mg PO BEDTIME 03/19/15 [History] Acetaminophen/Diphenhydramine [Tylenol Pm Ex-Strength Caplet] 2 tab PO BEDTIME 08/22/17 [History] Carvedilol [Coreg] 3.125 mg PO BID 08/22/17 [History] Clopidogrel [Plavix] 75 mg PO DAILY 08/22/17 [History] Docusate Sodium [Colace] 200 mg PO DAILY 08/22/17 [History] Ferrous Sulfate 325 mg PO DAILY 08/22/17 [History] Isosorbide Mononitrate [Ismo] 30 mg PO BEDTIME 08/22/17 [History] Magnesium Hydroxide [Milk of Magnesia] 5 ml PO DAILY PRN 08/22/17 [History] Pantoprazole [ProTONIX] 40 mg PO BID 08/22/17 [History] Rosuvastatin Calcium 20 mg PO DAILY 08/22/17 [History] Tamsulosin [Flomax] 0.4 mg PO BEDTIME 08/22/17 [History] Acetaminophen [Tylenol] 650 mg PO Q6H PRN #60 tablet 09/02/17 [Rx] Aspirin [Halfprin] 81 mg PO DAILY #30 tab.ec 09/02/17 [Rx] Past Medical History HEENT History: Reports: Impaired Vision Other HEENT History: reading glasses Cardiovascular History: Reports: High Cholesterol, Hypertension Other Cardiovascular History: atherosclerotic heart disease Respiratory History: Reports: PE Gastrointestinal History: Reports: GERD, GI Bleed, Inflammatory Bowel Disease Other Gastrointestinal History: colitis, hernia Genitourinary History: Reports: BPH Musculoskeletal History: Reports: None Psychiatric History: Reports: Depression Endocrine/Metabolic History: Reports: Hypothyroidism, Obesity/BMI 30+ - Infectious Disease History Infectious Disease History: Reports: None - Past Surgical History HEENT Surgical History: Reports: Cataract Surgery GI Surgical History: Reports: Appendectomy, Cholecystectomy, Hernia, Abdominal Musculoskeletal Surgical History: Reports: Hip Replacement Other Musculoskeletal Surgeries/Procedures:: R Hip Social & Family History - Family History Family Medical History: Noncontributory - Tobacco Use Smoking Status *Q: Never Smoker Years of Tobacco use: 6 Packs/Tins Daily: 0.5 Used Tobacco, but Quit: Yes Month Tobacco Last Used: 0 Second Hand Smoke Exposure: No - Caffeine Use Caffeine Use: Reports: Coffee Other Caffeine Use: one daily Caffeine Use Comment: 1 cup of coffee at noon - Alcohol Use Days Per Week of Alcohol Use: 0 - Recreational Drug Use Recreational Drug Use: No - Living Situation & Occupation Living situation: Reports: , Assisted Living ([facility]) Occupation: Retired H&P Review of Systems - Review of Systems: Review Of Systems: ROS reveals no pertinent complaints other than HPI. Exam - Exam Exam: See Below - Vital Signs Vital Signs: Last Vital Signs Temp 35.8 C 09/03/17 08:00 Pulse 70 09/03/17 03:08 Resp 20 09/03/17 08:40 BP 163/76 H 09/03/17 08:00 Pulse Ox 99 09/03/17 08:40 Weight: 102.875 kg - Exam Quality Assessment: Supplemental Oxygen General: Alert, Oriented, Cooperative HEENT: Hearing Intact Neck: Supple, Trachea Midline Lungs: Clear to Auscultation, Normal Respiratory Effort Cardiovascular: Regular Rate, Regular Rhythm GI/Abdominal Exam: Soft, Non-Tender, Other (Obese) (Male) Exam: Deferred Rectal (Males) Exam: Deferred Back Exam: Full Range of Motion Extremities: Normal Inspection Skin: Warm, Dry, Intact Neuro Extensive - Mental Status: Alert, Oriented x3, Normal Mood/Affect - Patient Data Lab Results Last 24 hrs: Laboratory Results - last 24 hr 09/03/17 09/03/17 09/03/17 Range/Units 00:44 03:23 06:02 WBC (4.23-9.07) K/mm3 RBC (4.63-6.08) M/mm3 Hgb (13.7-17.5) gm/L Hct (40.1-51.0) % MCV (79.0-92.2) fl MCH (25.7-32.2) pg MCHC (32.2-35.5) g/dl RDW Std Deviation (35.1-43.9) fL Plt Count (163-337) K/mm3 MPV (9.4-12.3) fl Neut % (Auto) (34.0-67.9) % Lymph % (Auto) (21.8-53.1) % [place] % (Auto) (5.3-12.2) % Eos % (Auto) (0.8-7.0) Baso % (Auto) (0.1-1.2) % Neut # (Auto) (1.78-5.38) K/mm3 Lymph # (Auto) (1.32-3.57) K/mm3 [place] # (Auto) (0.30-0.82) K/mm3 Eos # (Auto) (0.04-0.54) K/mm3 Baso # (Auto) (0.01-0.08) K/mm3 Manual Slide Review Sodium (136-145) mEq/L Potassium (3.5-5.1) mEq/L Chloride (98-107) mEq/L Carbon Dioxide (21-32) mEq/L Anion Gap (5-15) BUN (7-18) mg/dL Creatinine (0.7-1.3) mg/dL Est Cr Clr Drug Dosing mL/min Estimated GFR (MDRD) (>60) mL/min BUN/Creatinine Ratio (14-18) Glucose (83-115) mg/dL POC Glucose 111 H 105 135 H (83-110) mg/dL Calcium (8.5-10.1) mg/dL 09/03/17 09/03/17 Range/Units 06:03 06:03 WBC 9.59 H (4.23-9.07) K/mm3 RBC 3.52 L (4.63-6.08) M/mm3 Hgb 9.6 L (13.7-17.5) gm/L Hct 31.5 L (40.1-51.0) % MCV 89.5 (79.0-92.2) fl MCH 27.3 (25.7-32.2) pg MCHC 30.5 L (32.2-35.5) g/dl RDW Std Deviation 47.2 H (35.1-43.9) fL Plt Count 203 (163-337) K/mm3 MPV 9.9 (9.4-12.3) fl Neut % (Auto) 80.1 H (34.0-67.9) % Lymph % (Auto) 10.4 L (21.8-53.1) % [place] % (Auto) 6.8 (5.3-12.2) % Eos % (Auto) 1.8 (0.8-7.0) Baso % (Auto) 0.2 (0.1-1.2) % Neut # (Auto) 7.68 H (1.78-5.38) K/mm3 Lymph # (Auto) 1.00 L (1.32-3.57) K/mm3 [place] # (Auto) 0.65 (0.30-0.82) K/mm3 Eos # (Auto) 0.17 (0.04-0.54) K/mm3 Baso # (Auto) 0.02 (0.01-0.08) K/mm3 Manual Slide Review Abnormal smear Sodium 144 (136-145) mEq/L Potassium 4.1 (3.5-5.1) mEq/L Chloride 109 H (98-107) mEq/L Carbon Dioxide 28 (21-32) mEq/L Anion Gap 11.1 (5-15) BUN 18 (7-18) mg/dL Creatinine 1.2 (0.7-1.3) mg/dL Est Cr Clr Drug Dosing 38.40 mL/min Estimated GFR (MDRD) 57 (>60) mL/min BUN/Creatinine Ratio 15.0 (14-18) Glucose 138 H (83-115) mg/dL POC Glucose (83-110) mg/dL Calcium 8.3 L (8.5-10.1) mg/dL Result Diagrams: 09/03/17 06:03 09/03/17 06:03 Consult PN Assessment/Plan Procedures: Procedures AGENT NOS ASSAY W/OPTIC (03/30/14) ASSAY OF CK (CPK) (03/19/15) ASSAY OF NATRIURETIC PEPTIDE (12/12/16) ASSAY OF TROPONIN QUANT (12/12/16) C DIFF AMPLIFIED PROBE (03/30/14) CHEST X-RAY 1 VIEW FRONTAL (03/19/15) CHEST X-RAY 2VW FRONTAL&LATL (12/12/16) CINE/VID X-RAY THROAT/ESOPH (07/11/17) COLONOSCOPY AND BIOPSY (03/30/14) COMPLETE CBC W/AUTO DIFF WBC (12/12/16) COMPREHEN METABOLIC PANEL (12/12/16) CREATINE MB FRACTION (06/10/15) CRYPTOSPORIDIUM AG IA (03/30/14) CT HEAD/BRAIN W/O DYE (03/19/15) CT SOFT TISSUE NECK W/O DYE (06/10/15) EGD BIOPSY SINGLE/MULTIPLE (03/30/14) ELECTROCARDIOGRAM TRACING (12/12/16) EMERGENCY DEPT VISIT (08/22/17) EMERGENCY DEPT VISIT (12/12/16) EMERGENCY DEPT VISIT (08/12/16) EMERGENCY DEPT VISIT (08/09/16) EMERGENCY DEPT VISIT (10/06/15) EMERGENCY DEPT VISIT (06/10/15) EMERGENCY DEPT VISIT (03/19/15) EXTRACRANIAL BILAT STUDY (03/23/15) FIBRIN DEGRADATION QUANT (08/09/16) GIARDIA AG IA (03/30/14) LEUKOCYTE ASSESSMENT FECAL (03/30/14) MEASURE BLOOD OXYGEN LEVEL (03/19/15) MOTION FLUOROSCOPY/SWALLOW (07/11/17) MRI CHEST SPINE W/O DYE (06/09/15) PROTHROMBIN TIME (06/10/15) PT EVALUATION (03/19/15) ROUTINE VENIPUNCTURE (12/12/16) STOOL CULTR AEROBIC BACT EA (03/30/14) THER/PROPH/DIAG INJ IV PUSH (06/10/15) TISSUE EXAM BY PATHOLOGIST (03/30/14) TTE W/DOPPLER COMPLETE (03/23/15) URINALYSIS AUTO W/SCOPE (03/19/15) VANOMYCIN DNA AMP PROBE (03/30/14) X-RAY EXAM HIP UNI 2-3 VIEWS (08/22/17) X-RAY EXAM KNEE 4 OR MORE (10/06/15) X-RAY EXAM OF ABDOMEN (08/12/16) X-RAY EXAM OF HIP (10/06/15) X-RAY EXAM OF WRIST (10/06/15) Problem List Initiated/Reviewed/Updated: Yes My Orders Last 24 Hours: My Active Orders 09/03/17 07:47 Communication Order [RC] ROUTINE 09/03/17 07:48 Verify Patient Consent Obtain [RC] ASDIRECTED 09/03/17 Lunch NPO Now [Nothing per Oral Now Diet] [DIET] imp: Recurrent GI bleed. Source unknown. Possible upper or lower sources. His hemoglobin has been stable since discharge and readmission. He may be clearing residual blood but I'm glad to see that he has agreed to the diagnostic procedures. I suggested upper and lower endoscopy today after the bowel preparation was given yesterday. plan: Esophagogastroduodenoscopy and colonoscopy both diagnostic. I discussed the procedure once again with the patient and he has agreed to have me proceed. All of his questions were answered. We had previously discussed the alternatives and there were no changes in these areas.
[2017-09-03] MEDS ORDERED: Propofol 200 MG/20 ML SDV ONE (10:05)
[2017-09-03] MEDS ORDERED: Lidocaine 1% 4 ML ONE (10:05)
[2017-09-03] MEDS ORDERED: fentaNYL 100 MCG/2 ML SDV ONE (10:06)
--- NOTE | 2017-09-03 10:24 | CT ---
CT abdomen and pelvis Technique: Multiple axial sections were obtained from above the dome of the diaphragm inferiorly through the pubic symphysis. Oral contrast was utilized. Intravenous contrast was not utilized. Comparison: Previous CT abdomen and pelvis study of 11/02/12. Findings: Scarring is noted within both lung bases. Surgical clips are seen within the right upper abdomen. This presumably is from previous cholecystectomy. Cystic area is noted next to the gallbladder fossa measuring approximately 3.8 cm in size which is noted on prior study and appears without significant change. No additional abnormality is identified within the liver. Spleen appears within normal limits. Adrenal glands show no nodule. Two cysts are identified within the left kidney. Largest cyst measures 4.0 cm in size. Kidneys show no hydronephrosis or abnormal calcifications. Pancreas is within normal limits. Aorta shows mild ectasia with atherosclerotic calcification without aneurysmal dilatation. Previous anterior abdominal wall surgery is noted. Right hip prosthesis is noted. No pelvic mass or adenopathy is seen. Mild diverticulosis noted within the sigmoid and descending colon without inflammatory change of diverticulitis. No free fluid is seen. Bone window settings were reviewed which show scattered degenerative change within the spine. Impression: 1. Incidental findings as noted above. Nothing acute is identified on noncontrast CT study. Findings remain fairly stable from previous CT exam. Diagnostic code #2 I agree with preliminary report issued by [employer] ([facility] preliminary report dictated on 09/02/17, 7:45 PM Central Time)
--- NOTE | 2017-09-03 11:07 | PCM48HPAN ---
Post Anesthesia Note - EVALUATION WITHIN 48HRS OF ANESTHETIC Vital Signs in Normal Range: Yes Patient Participated in Evaluation: Yes Respiratory Function Stable: Yes Airway Patent: Yes Cardiovascular Function Stable: Yes Hydration Status Stable: Yes Pain Control Satisfactory: Yes Nausea and Vomiting Control Satisfactory: Yes Mental Status Recovered: Yes
--- NOTE | 2017-09-03 11:08 | PCM.OPNOTE ---
- General Post-Op/Procedure Note Date of Surgery/Procedure: 09/03/17 Operative Procedure(s): 1. Diagnostic Esophagogastroduodenoscopy with cold forceps biopsy of the antrum. 2. Diagnostic Colonoscopy Findings: 1. Multiple Linear antral erosions consistent with antritis; No luminal blood. No other lesions seen within the esophagus stomach or duodenum. 2. A few scattered uncomplicated diverticuli with old particulate melenic blood. 3. Perianal skin tags Pre Op Diagnosis: Acute and chronic Gastrointestinal bleeding of unknown etiology Post-Op Diagnosis: 1. Mild antritis. 2. Sigmoid diverticulosis. 3. Perianal skin tags Anesthesia Technique: MAC, Moderate Sedation Primary Surgeon: Vidal Ortega Pathology: Antral biopsy 1 Output, Urine Amount: 0 Complications: None Condition: Good Free Text/Narrative:: Intake & Output 09/02/17 09/03/17 09/03/17 22:59 06:59 14:59 Intake Total 1183 Output Total 1525 Balance -342 After adequate IV sedation and analgesia was obtained with monitoring the patient was placed on his left side. Through a bite-block lubricated upper endoscope was inserted into the esophagus and advanced under direct vision with air insufflation as necessary into the body of the stomach. Additional air was given here. There was no luminal blood. The scope was advanced towaards the antrum and pylorus. There are multiple linear superficial erosions seen within the antrum. I then introduced the scope into the third part of the duodenum. The third, second, and first parts were endoscopically normal with no mass lesions or inflammatory changes seen in any area. There was no blood in the duodenum as well. I biopsied one of the linear erosions for histologic review of the antrum. In the retroflexed view there was no hiatal hernia. The cardiac, body, and fundic regions were endoscopically normal. The rugal folds were grossly normal as well. Motility was grossly normal. No mass lesions were seen in the body of the stomach and no peptic change was seen in this area as well. The scope was then withdrawn to the GE junction which was unremarkable. The body of the esophagus was endoscopically normal. The vocal cords were briefly visualized on extubation and were grossly normal. [employer] photographs were taken for the patient and for the medical record. Perianal inspection and digital rectal examination were performed next. The patient had several perianal skin tags. The prostate was slightly enlarged and was without nodularity. A lubricated colonoscope was inserted into the rectum. I immediately saw old particular melenic type blood floating in clear liquid. And there were no blood clots. There was no hematochezic or red blood within the lumen of the entire colon. The scope was easily advanced to the cecum with air insufflation. Observing the cecum I could see old blood spilling through the ileocecal valve into the cecum. The cecum was endoscopically normal with no mass lesions or inflammatory changes. The ascending colon transverse colon and descending colon were normal as well. Within the sigmoid there were a few scattered uncomplicated diverticuli. Within the rectum in the retroflexed view there were the perianal tags. The bowel preparation was poor at best. Photographs were taken for the patient for the medical record. Air was removed as I finished the procedure which he tolerated well.
[2017-09-03] MEDS: Pantoprazole 40 MG Vial IV SCH (11:29)
[2017-09-03] MEDS ORDERED: Magnesium Hydroxide 400 MG/5 ML Susp 30 ML Cup PO PRN (13:21)
[2017-09-03] MEDS ORDERED: Acetaminophen 325 MG Tab PO PRN (13:21)
--- NOTE | 2017-09-03 16:11 | PCM.PN ---
- General Info Date of Service: 09/03/17 Admission Dx/Problem (Free Text): Admission Diagnosis/Problem Admission Diagnosis/Problem Gastrointestinal hemorrhage Subjective Update: Patient was seen and examined bedside with the nurse. He underwent colonoscopy and EGD today which was done by Dr. Ortega. Results noted in chart. There were no obvious source of bleed. He currently denies any new problems, denies any bleed. Functional Status: Reports: Pain Controlled, Tolerating Diet, Ambulating, Urinating. Denies: New Symptoms - Review of Systems General: Reports: No Symptoms HEENT: Reports: No Symptoms Pulmonary: Reports: No Symptoms Cardiovascular: Reports: No Symptoms Gastrointestinal: Reports: No Symptoms Genitourinary: Reports: No Symptoms Musculoskeletal: Reports: No Symptoms Skin: Reports: No Symptoms Neurological: Reports: No Symptoms Psychiatric: Reports: No Symptoms - Patient Data Vitals - Most Recent: Last Vital Signs Temp 96.7 F 09/03/17 12:00 Pulse 73 09/03/17 12:00 Resp 16 09/03/17 12:00 BP 148/65 H 09/03/17 12:00 Pulse Ox 99 09/03/17 12:00 Weight - Most Recent: 102.875 kg I&O - Last 24 Hours: Intake & Output 09/03/17 09/03/17 09/03/17 06:59 14:59 22:59 Intake Total 1183 Output Total 1525 200 Balance -342 -200 Lab Results Last 24 Hours: Laboratory Results - last 24 hr 09/03/17 09/03/17 09/03/17 Range/Units 00:44 03:23 06:02 WBC (4.23-9.07) K/mm3 RBC (4.63-6.08) M/mm3 Hgb (13.7-17.5) gm/L Hct (40.1-51.0) % MCV (79.0-92.2) fl MCH (25.7-32.2) pg MCHC (32.2-35.5) g/dl RDW Std Deviation (35.1-43.9) fL Plt Count (163-337) K/mm3 MPV (9.4-12.3) fl Neut % (Auto) (34.0-67.9) % Lymph % (Auto) (21.8-53.1) % [place] % (Auto) (5.3-12.2) % Eos % (Auto) (0.8-7.0) Baso % (Auto) (0.1-1.2) % Neut # (Auto) (1.78-5.38) K/mm3 Lymph # (Auto) (1.32-3.57) K/mm3 [place] # (Auto) (0.30-0.82) K/mm3 Eos # (Auto) (0.04-0.54) K/mm3 Baso # (Auto) (0.01-0.08) K/mm3 Manual Slide Review Sodium (136-145) mEq/L Potassium (3.5-5.1) mEq/L Chloride (98-107) mEq/L Carbon Dioxide (21-32) mEq/L Anion Gap (5-15) BUN (7-18) mg/dL Creatinine (0.7-1.3) mg/dL Est Cr Clr Drug Dosing mL/min Estimated GFR (MDRD) (>60) mL/min BUN/Creatinine Ratio (14-18) Glucose (83-115) mg/dL POC Glucose 111 H 105 135 H (83-110) mg/dL Calcium (8.5-10.1) mg/dL 09/03/17 09/03/17 Range/Units 06:03 06:03 WBC 9.59 H (4.23-9.07) K/mm3 RBC 3.52 L (4.63-6.08) M/mm3 Hgb 9.6 L (13.7-17.5) gm/L Hct 31.5 L (40.1-51.0) % MCV 89.5 (79.0-92.2) fl MCH 27.3 (25.7-32.2) pg MCHC 30.5 L (32.2-35.5) g/dl RDW Std Deviation 47.2 H (35.1-43.9) fL Plt Count 203 (163-337) K/mm3 MPV 9.9 (9.4-12.3) fl Neut % (Auto) 80.1 H (34.0-67.9) % Lymph % (Auto) 10.4 L (21.8-53.1) % [place] % (Auto) 6.8 (5.3-12.2) % Eos % (Auto) 1.8 (0.8-7.0) Baso % (Auto) 0.2 (0.1-1.2) % Neut # (Auto) 7.68 H (1.78-5.38) K/mm3 Lymph # (Auto) 1.00 L (1.32-3.57) K/mm3 [place] # (Auto) 0.65 (0.30-0.82) K/mm3 Eos # (Auto) 0.17 (0.04-0.54) K/mm3 Baso # (Auto) 0.02 (0.01-0.08) K/mm3 Manual Slide Review Abnormal smear Sodium 144 (136-145) mEq/L Potassium 4.1 (3.5-5.1) mEq/L Chloride 109 H (98-107) mEq/L Carbon Dioxide 28 (21-32) mEq/L Anion Gap 11.1 (5-15) BUN 18 (7-18) mg/dL Creatinine 1.2 (0.7-1.3) mg/dL Est Cr Clr Drug Dosing 38.40 mL/min Estimated GFR (MDRD) 57 (>60) mL/min BUN/Creatinine Ratio 15.0 (14-18) Glucose 138 H (83-115) mg/dL POC Glucose (83-110) mg/dL Calcium 8.3 L (8.5-10.1) mg/dL Med Orders - Current: Current Medications Acetaminophen (Tylenol) 650 mg PO Q6H PRN PRN Reason: Pain Aspirin (Halfprin) 81 mg PO DAILY [facility] Carvedilol (Coreg) 3.125 mg PO BID [facility] Clopidogrel Bisulfate (Plavix) 75 mg PO DAILY [facility] Docusate Sodium (Colace) 200 mg PO DAILY [facility] Ferrous Sulfate (Ferrous Sulfate) 325 mg PO DAILY [facility] Furosemide (Lasix) 20 mg PO DAILY [facility] Gabapentin (Neurontin) 600 mg PO BEDTIME [facility] Hydralazine HCl (Apresoline) 10 mg IVPUSH Q2H PRN PRN Reason: Hypertension Dextrose/Sodium Chloride (Dextrose 5%-Normal Saline) 1,000 mls @ 100 mls/hr IV ASDIRECTED [facility] Last Admin: 09/03/17 14:52 Dose: 100 mls/hr Isosorbide Mononitrate (Imdur) 30 mg PO BEDTIME [facility] Levothyroxine Sodium (Levothyroxine) 75 mcg PO DAILY [facility] Losartan Potassium (Cozaar) 50 mg PO DAILY [facility] Magnesium Hydroxide (Milk Of Magnesia) 30 ml PO DAILY PRN PRN Reason: Constipation Morphine Sulfate (Morphine) 2 mg IVPUSH Q2H PRN PRN Reason: Pain (severe 7-10) Stop: 09/03/17 20:02 Ondansetron HCl (Zofran) 4 mg IV Q6H PRN PRN Reason: Nausea/Vomiting Last Admin: 09/03/17 03:14 Dose: 4 mg Pantoprazole Sodium (Protonix) 40 mg PO BID [facility] Acetaminophen/Diphenhydramine 2 Tab 0 each PO BEDTIME [facility] Rosuvastatin Calcium (Crestor) 20 mg PO DAILY [facility] Sertraline HCl (Zoloft) 50 mg PO DAILY [facility] Sodium Chloride (Saline Flush) 10 ml FLUSH ASDIRECTED PRN PRN Reason: Keep Vein Open Last Admin: 09/03/17 03:15 Dose: 10 ml Tamsulosin HCl (Flomax) 0.4 mg PO BEDTIME [facility] Discontinued Medications Bisacodyl (Dulcolax) 30 mg PO ONETIME ONE Stop: 09/02/17 21:14 Last Admin: 09/02/17 21:52 Dose: 30 mg Diatrizoate Meglum/Diatrizoate Sod (Gastrografin 37%) 90 ml PO ONETIME ONE Stop: 09/02/17 17:40 Last Admin: 09/02/17 18:26 Dose: 90 ml Fentanyl (Sublimaze) Confirm Administered Dose 100 mcg .ROUTE .STK-MED ONE Stop: 09/03/17 10:07 Sodium Chloride (Normal Saline) 1,000 mls @ 125 mls/hr IV ASDIRECTED [facility] Last Admin: 09/02/17 17:04 Dose: 125 mls/hr Lidocaine HCl (Xylocaine-Mpf 1%) Confirm Administered Dose 4 mls @ as directed .ROUTE .STK-MED ONE Stop: 09/03/17 10:06 Magnesium Citrate (Citrate Of Magnesia) 296 ml PO ONETIME ONE Stop: 09/02/17 21:15 Last Admin: 09/02/17 21:53 Dose: 296 ml Pantoprazole Sodium (Protonix Iv) 40 mg IV Q12HR [facility] Last Admin: 09/03/17 11:29 Dose: 40 mg Polyethylene Glycol/Electrolytes (Golytely) 4,000 ml PO ONETIME ONE Stop: 09/02/17 20:13 Last Admin: 09/02/17 21:46 Dose: Not Given Propofol (Diprivan 20 Ml) Confirm Administered Dose 200 mg .ROUTE .STK-MED ONE Stop: 09/03/17 10:06 - Exam General: Alert, Oriented, Cooperative, No Acute Distress HEENT: Pupils Equal, Pupils Reactive, EOMI, Mucous Membr. Moist/[place] Neck: Supple Lungs: Clear to Auscultation, Normal Respiratory Effort Cardiovascular: Regular Rate, Regular Rhythm GI/Abdominal Exam: Normal Bowel Sounds, Soft, Non-Tender, No Organomegaly, No Distention, No Abnormal Bruit, No Mass, Pelvis Stable Back Exam: Normal Inspection Extremities: Normal Inspection, Normal Range of Motion, Non-Tender, No Pedal Edema, Normal Capillary Refill Peripheral Pulses: 2+: Carotid (L), Carotid (R), Brachial (L), Brachial (R), Radial (L), Radial (R), Femoral (L), Femoral (R), Popliteal (L), Popliteal (R), Posterior Tibial (L), Posterior Tibial (R), Dorsalis Pedis (L), Dorsalis Pedis ( R) Skin: Warm, Dry, Intact Neurological: No New Focal Deficit Psy/Mental Status: Alert, Normal Affect, Normal Mood - Problem List & Annotations (1) GI bleed SNOMED Code(s): 98448539 Code(s): K92.2 - GASTROINTESTINAL HEMORRHAGE, UNSPECIFIED Status: Acute Priority: High Current Visit: Yes Qualifiers: GI bleed type/associated pathology: unspecified gastrointestinal hemorrhage type Qualified Code(s): K92.2 - Gastrointestinal hemorrhage, unspecified (2) Anemia SNOMED Code(s): 585785817 Code(s): D64.9 - ANEMIA, UNSPECIFIED Status: Acute Priority: High Current Visit: Yes Qualifiers: Anemia type: other cause Other causes of anemia: other cause, not classified Qualified Code(s): D64.89 - Other specified anemias - Problem List Review Problem List Initiated/Reviewed/Updated: Yes - My Orders Last 24 Hours: My Active Orders 09/02/17 18:42 CULTURE URINE [RM] Stat 09/02/17 19:54 Bedrest Bathroom Privileges [RC] ASDIRECTED Blood Glucose Check, Bedside [RC] 0000,0600,12,18 Oxygen Therapy [RC] PRN VTE/DVT Education [RC] 1000,2200 Vital Signs [RC] 09,15,21,03 Consult to Physician [CONS] Routine Morphine 2 mg IVPUSH Q2H PRN Ondansetron [Zofran] 4 mg IV Q6H PRN Resuscitation Status Routine 09/02/17 19:59 Sequential Compression Device [OM.PC] Per Unit Routine 09/02/17 20:00 Dextrose 5%-0.9% NaCl [Dextrose 5%-Normal Saline] 1,000 ml IV ASDIRECTED 09/02/17 20:03 Antiembolic Devices [RC] DAILY 09/02/17 20:05 Notify Provider Consults [RC] ASDIRECTED 09/02/17 20:08 hydrALAZINE [Apresoline] 10 mg IVPUSH Q2H PRN 09/03/17 13:21 Acetaminophen [Tylenol] 650 mg PO Q6H PRN Magnesium Hydroxide [Milk of Magnesia] 30 ml PO DAILY PRN 09/03/17 21:00 Carvedilol [Coreg] 3.125 mg PO BID Gabapentin [Neurontin] 600 mg PO BEDTIME Isosorbide Mononitrate [Imdur] 30 mg PO BEDTIME Pantoprazole [ProTONIX] 40 mg PO BID Patient's Own Medication [Ptom] 0 each PO BEDTIME Tamsulosin [Flomax] 0.4 mg PO BEDTIME 09/03/17 Breakfast Nothing per Oral After Midnight Diet [DIET] 09/04/17 05:11 CBC WITH AUTO DIFF [HEME] AM 09/04/17 09:00 Aspirin [Halfprin] 81 mg PO DAILY Clopidogrel [Plavix] 75 mg PO DAILY Docusate Sodium [Colace] 200 mg PO DAILY Ferrous Sulfate 325 mg PO DAILY Furosemide [Lasix] 20 mg PO DAILY Levothyroxine 75 mcg PO DAILY Losartan [Cozaar] 50 mg PO DAILY Rosuvastatin [Crestor] 20 mg PO DAILY Sertraline [Zoloft] 50 mg PO DAILY - Assessment Assessment:: 1. Gastrointestinal hemorrhage status post EGD and colonoscopy today. 2. Mild antritis as seen on EGD. 3. Sigmoid diverticulosis as seen on colonoscopy. 4. Anemia of blood loss. - Plan Plan:: 1. Patient can be transferred to the medical floor. 2. We'll discontinue IV fluids as patient is able to take food orally. 3. Discontinue IV Protonix and start by mouth Protonix 40 mg twice daily. 4. Restart a heart healthy diet. 5. Continue home medications as directed. Because there was no obvious source of bleeding noted I will continue his Dual antiplatelet medication with aspirin and Plavix. 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 I will discuss with patient and his son about the decision to continue aspirin and Plavix despite the fact that it can worsen the bleeding. At this point it is a matter of risks versus benefits as patient does need the dual antiplatelet therapy to prevent restenosis of the cardiac stents. Hopefully his freight team associate will make the decision whether to continue or not to continue. 6. DVT prophylaxis with SCDs. Pharmacologic anticoagulation contraindicated due to GI bleed. 7. CODE STATUS: DNR/DNI. 8. Discharge planning.
[2017-09-03] MEDS: Pantoprazole 40 MG Tab.CR PO SCH (20:24)
[2017-09-03] MEDS: Carvedilol 3.125 MG Tab PO SCH (20:24)
[2017-09-03] MEDS ORDERED: Tamsulosin 0.4 MG Cap.ER PO SCH (21:00)
[2017-09-03] MEDS ORDERED: Isosorbide Mononitrate 30 MG Tab.ER PO SCH (21:00)
[2017-09-03] MEDS ORDERED: ACETAMINOPHEN PO SCH (21:00)
[2017-09-03] MEDS ORDERED: DIPHENHYDRAMINE PO SCH (21:00)
[2017-09-03] MEDS ORDERED: Gabapentin 600 MG Tab PO SCH (21:00)
--- NOTE | 2017-09-04 08:04 | PCM.SURGPN ---
- General Info Date of Service: 09/04/17 POD#: 1 Functional Status: Reports: Tolerating Diet - Patient Data Vitals - Most Recent: Last Vital Signs Temp 37.3 C 09/04/17 03:54 Pulse 81 09/04/17 03:54 Resp 20 09/04/17 03:54 BP 136/56 L 09/04/17 03:54 Pulse Ox 95 09/04/17 03:54 Weight - Most Recent: 102.829 kg I&O - Last 24 Hours: Intake & Output 09/03/17 09/04/17 09/04/17 22:59 06:59 14:59 Intake Total 0 200 Output Total 140 Balance 0 60 Lab Results Last 24 Hrs: Laboratory Results - last 24 hr 09/03/17 09/03/17 09/04/17 Range/Units 12:25 17:27 07:00 WBC 9.47 H (4.23-9.07) K/mm3 RBC 3.23 L (4.63-6.08) M/mm3 Hgb 8.9 L (13.7-17.5) gm/L Hct 29.6 L (40.1-51.0) % MCV 91.6 (79.0-92.2) fl MCH 27.6 (25.7-32.2) pg MCHC 30.1 L (32.2-35.5) g/dl RDW Std Deviation 48.1 H (35.1-43.9) fL Plt Count 208 (163-337) K/mm3 MPV 10.0 (9.4-12.3) fl Neut % (Auto) 82.2 H (34.0-67.9) % Lymph % (Auto) 8.8 L (21.8-53.1) % [place] % (Auto) 8.0 (5.3-12.2) % Eos % (Auto) 0.3 L (0.8-7.0) Baso % (Auto) 0.1 (0.1-1.2) % Neut # (Auto) 7.78 H (1.78-5.38) K/mm3 Lymph # (Auto) 0.83 L (1.32-3.57) K/mm3 [place] # (Auto) 0.76 (0.30-0.82) K/mm3 Eos # (Auto) 0.03 L (0.04-0.54) K/mm3 Baso # (Auto) 0.01 (0.01-0.08) K/mm3 Manual Slide Review Abnormal smear POC Glucose 146 H 190 H (83-110) mg/dL Med Orders - Current: Current Medications Acetaminophen (Tylenol) 650 mg PO Q6H PRN PRN Reason: Pain Aspirin (Halfprin) 81 mg PO DAILY [facility] Carvedilol (Coreg) 3.125 mg PO BID [facility] Last Admin: 09/03/17 20:24 Dose: 3.125 mg Clopidogrel Bisulfate (Plavix) 75 mg PO DAILY [facility] Docusate Sodium (Colace) 200 mg PO DAILY [facility] Ferrous Sulfate (Ferrous Sulfate) 325 mg PO DAILY [facility] Furosemide (Lasix) 20 mg PO DAILY [facility] Gabapentin (Neurontin) 600 mg PO BEDTIME [facility] Last Admin: 09/03/17 20:24 Dose: 600 mg Hydralazine HCl (Apresoline) 10 mg IVPUSH Q2H PRN PRN Reason: Hypertension Isosorbide Mononitrate (Imdur) 30 mg PO BEDTIME [facility] Last Admin: 09/03/17 20:21 Dose: 30 mg Levothyroxine Sodium (Levothyroxine) 75 mcg PO DAILY [facility] Losartan Potassium (Cozaar) 50 mg PO DAILY [facility] Magnesium Hydroxide (Milk Of Magnesia) 30 ml PO DAILY PRN PRN Reason: Constipation Ondansetron HCl (Zofran) 4 mg IV Q6H PRN PRN Reason: Nausea/Vomiting Last Admin: 09/03/17 03:14 Dose: 4 mg Pantoprazole Sodium (Protonix) 40 mg PO BID [facility] Last Admin: 09/03/17 20:24 Dose: 40 mg Acetaminophen/Diphenhydramine 2 Tab 0 each PO BEDTIME [facility] Last Admin: 09/03/17 20:27 Dose: Not Given Rosuvastatin Calcium (Crestor) 20 mg PO DAILY [facility] Sertraline HCl (Zoloft) 50 mg PO DAILY [facility] Sodium Chloride (Saline Flush) 10 ml FLUSH ASDIRECTED PRN PRN Reason: Keep Vein Open Last Admin: 09/03/17 03:15 Dose: 10 ml Tamsulosin HCl (Flomax) 0.4 mg PO BEDTIME [facility] Last Admin: 09/03/17 20:24 Dose: 0.4 mg Discontinued Medications Bisacodyl (Dulcolax) 30 mg PO ONETIME ONE Stop: 09/02/17 21:14 Last Admin: 09/02/17 21:52 Dose: 30 mg Diatrizoate Meglum/Diatrizoate Sod (Gastrografin 37%) 90 ml PO ONETIME ONE Stop: 09/02/17 17:40 Last Admin: 09/02/17 18:26 Dose: 90 ml Fentanyl (Sublimaze) Confirm Administered Dose 100 mcg .ROUTE .STK-MED ONE Stop: 09/03/17 10:07 Sodium Chloride (Normal Saline) 1,000 mls @ 125 mls/hr IV ASDIRECTED [facility] Last Admin: 09/02/17 17:04 Dose: 125 mls/hr Dextrose/Sodium Chloride (Dextrose 5%-Normal Saline) 1,000 mls @ 100 mls/hr IV ASDIRECTED [facility] Last Admin: 09/03/17 14:52 Dose: 100 mls/hr Lidocaine HCl (Xylocaine-Mpf 1%) Confirm Administered Dose 4 mls @ as directed .ROUTE .STK-MED ONE Stop: 09/03/17 10:06 Magnesium Citrate (Citrate Of Magnesia) 296 ml PO ONETIME ONE Stop: 09/02/17 21:15 Last Admin: 09/02/17 21:53 Dose: 296 ml Morphine Sulfate (Morphine) 2 mg IVPUSH Q2H PRN PRN Reason: Pain (severe 7-10) Stop: 09/03/17 20:02 Pantoprazole Sodium (Protonix Iv) 40 mg IV Q12HR [facility] Last Admin: 09/03/17 11:29 Dose: 40 mg Polyethylene Glycol/Electrolytes (Golytely) 4,000 ml PO ONETIME ONE Stop: 09/02/17 20:13 Last Admin: 09/02/17 21:46 Dose: Not Given Propofol (Diprivan 20 Ml) Confirm Administered Dose 200 mg .ROUTE .STK-MED ONE Stop: 09/03/17 10:06 - Problem List Review Problem List Initiated/Reviewed/Updated: Yes - My Orders Last 24 Hours: Active Orders 24 hr Category Date Time Status Patient Status [ADT] Routine ADT 09/03/17 13:07 Active Communication Order [RC] ROUTINE Care 09/03/17 07:47 Active Verify Patient Consent Obtain [RC] ASDIRECTED Care 09/03/17 07:48 Active Regular Diet [DIET] Diet 09/03/17 Dinner Active Acetaminophen [Tylenol] Med 09/03/17 13:21 Active 650 mg PO Q6H PRN Aspirin [Halfprin] Med 09/04/17 09:00 Active 81 mg PO DAILY Carvedilol [Coreg] Med 09/03/17 21:00 Active 3.125 mg PO BID Clopidogrel [Plavix] Med 09/04/17 09:00 Active 75 mg PO DAILY Docusate Sodium [Colace] Med 09/04/17 09:00 Active 200 mg PO DAILY Ferrous Sulfate Med 09/04/17 09:00 Active 325 mg PO DAILY Furosemide [Lasix] Med 09/04/17 09:00 Active 20 mg PO DAILY Gabapentin [Neurontin] Med 09/03/17 21:00 Active 600 mg PO BEDTIME Isosorbide Mononitrate [Imdur] Med 09/03/17 21:00 Active 30 mg PO BEDTIME Levothyroxine Med 09/04/17 09:00 Active 75 mcg PO DAILY Losartan [Cozaar] Med 09/04/17 09:00 Active 50 mg PO DAILY Magnesium Hydroxide [Milk of Magnesia] Med 09/03/17 13:21 Active 30 ml PO DAILY PRN Pantoprazole [ProTONIX] Med 09/03/17 21:00 Active 40 mg PO BID Patient's Own Medication [Ptom] Med 09/03/17 21:00 Active 0 each PO BEDTIME Rosuvastatin [Crestor] Med 09/04/17 09:00 Active 20 mg PO DAILY Sertraline [Zoloft] Med 09/04/17 09:00 Active 50 mg PO DAILY Tamsulosin [Flomax] Med 09/03/17 21:00 Active 0.4 mg PO BEDTIME Schedule Procedure [COMM] Routine Oth 09/03/17 09:20 Ordered Medication Orders Acetaminophen (Tylenol) 650 mg PO Q6H PRN PRN Reason: Pain Aspirin (Halfprin) 81 mg PO DAILY [facility] Carvedilol (Coreg) 3.125 mg PO BID [facility] Last Admin: 09/03/17 20:24 Dose: 3.125 mg Clopidogrel Bisulfate (Plavix) 75 mg PO DAILY [facility] Docusate Sodium (Colace) 200 mg PO DAILY [facility] Ferrous Sulfate (Ferrous Sulfate) 325 mg PO DAILY [facility] Furosemide (Lasix) 20 mg PO DAILY [facility] Gabapentin (Neurontin) 600 mg PO BEDTIME [facility] Last Admin: 09/03/17 20:24 Dose: 600 mg Hydralazine HCl (Apresoline) 10 mg IVPUSH Q2H PRN PRN Reason: Hypertension Isosorbide Mononitrate (Imdur) 30 mg PO BEDTIME [facility] Last Admin: 09/03/17 20:21 Dose: 30 mg Levothyroxine Sodium (Levothyroxine) 75 mcg PO DAILY [facility] Losartan Potassium (Cozaar) 50 mg PO DAILY [facility] Magnesium Hydroxide (Milk Of Magnesia) 30 ml PO DAILY PRN PRN Reason: Constipation Ondansetron HCl (Zofran) 4 mg IV Q6H PRN PRN Reason: Nausea/Vomiting Last Admin: 09/03/17 03:14 Dose: 4 mg Pantoprazole Sodium (Protonix) 40 mg PO BID [facility] Last Admin: 09/03/17 20:24 Dose: 40 mg Acetaminophen/Diphenhydramine 2 Tab 0 each PO BEDTIME [facility] Last Admin: 09/03/17 20:27 Dose: Rosuvastatin Calcium (Crestor) 20 mg PO DAILY [facility] Sertraline HCl (Zoloft) 50 mg PO DAILY [facility] Sodium Chloride (Saline Flush) 10 ml FLUSH ASDIRECTED PRN PRN Reason: Keep Vein Open Last Admin: 09/03/17 03:15 Dose: 10 ml Admin: 09/02/17 17:04 Dose: 10 ml Tamsulosin HCl (Flomax) 0.4 mg PO BEDTIME [facility] Last Admin: 09/03/17 20:24 Dose: 0.4 mg - Assessment Assessment (Free Text/Narrative):: Stable overnight. - Plan Plan (Free Text/Narrative):: Signing off.
[2017-09-04] MEDS ORDERED: Rosuvastatin 10 MG Tab PO SCH (09:00)
[2017-09-04] MEDS ORDERED: Aspirin 81 MG Tab.EC PO SCH (09:00)
[2017-09-04] MEDS ORDERED: Clopidogrel 75 MG Tab PO SCH (09:00)
[2017-09-04] MEDS ORDERED: Ferrous Sulfate 325 MG Tab PO SCH (09:00)
[2017-09-04] MEDS ORDERED: Losartan 25 MG Tab PO SCH (09:00)
[2017-09-04] MEDS ORDERED: Furosemide 20 MG Tab PO SCH (09:00)
[2017-09-04] MEDS ORDERED: Sertraline 50 MG Tab PO SCH (09:00)
[2017-09-04] MEDS ORDERED: Levothyroxine 75 MCG Tab PO SCH (09:00)
[2017-09-04] MEDS ORDERED: Docusate Sodium 100 MG Cap PO SCH (09:00)
[2017-09-04] MEDS: Pantoprazole 40 MG Tab.CR PO SCH (09:01)
[2017-09-04] MEDS: Carvedilol 3.125 MG Tab PO SCH (09:07)
[2017-09-04] MEDS ORDERED: Sodium Chloride 0.9% 100 ML ONE (11:30)
[2017-09-04 17:37] VITALS: BP 100/53
--- NOTE | 2017-09-04 17:50 | PCM.DCSUM1 ---
Discharge Summary - Hospital Course Free Text/Narrative:: 87-year-old man who was previously admitted on 31 August 2017 for evaluation of gastrointestinal hemorrhage. On that admission patient refused endoscopy even after discussing with the surgeon it applications analyst. He was subsequently discharged on 03 September 2017 after monitoring his H&H and was found to be stable. He subsequently returned on the same day after he was brought in by the son and was reported to have started bleeding again. At this time, patient agreed to endoscopy and Dr. Ortega was contacted. He underwent upper and lower gastrointestinal endoscopy on 09/03/17 with results showing antritis as well as diverticulosis. Repeat of his H&H showed a slight decrease from 9.2-8.9. The decision was then made to transfuse with 1 unit of packed red blood cell. Repeat H&H showed an improvement to 10.9. I discussed extensively with the patient and his son regarding restarting his dual antiplatelets medication with aspirin and Plavix as this will exacerbate the bleeding but at the same time these medications are needed for prevention of cardiac stent restenosis. He will follow-up with his primary care physician as well as his addiction professional so that a definite decision can be made regarding risks versus benefits. He is being discharged in stable condition. HPI Initial Comments: Patient is an 87-year-old man who was discharged from this hospital today after he was admitted for bleeding per rectum. He had presented to the emergency room with bleeding per rectum on August 31, 2017 and was subsequently admitted for evaluation and treatment. Surgery consult was requested and patient was seen by Dr. Ortega who advised patient that it will be medically necessary to do a colonoscopy on him. Patient refused as he wanted to see his primary care physician and if needed to get it done today. He was monitored with serial hemoglobin and hematocrit check. His hemoglobin was noted to decrease from initial level of 13,[phone] where it stabilized. He got volume resuscitation with IV 0.9% normal saline and by this morning he stated that he had not seen any blood in his stool for the previous 2 days. He requested to be discharged as he was stable and he was discharged home to follow up with his primary care physician. His son called the medicine floor and requested that patient be readmitted as he had started bleeding again rectum and is now willing to have the colonoscopy done. He was then advised to come back to the emergency room to be readmitted. I discussed with the patient and he tells me that he is willing to have colonoscopy done if that will help him. I contacted Dr. Ortega and he is willing to see the patient tomorrow for possible colonoscopy. He will be admitted to the ICU for further evaluation. Laboratory investigations done at the emergency room revealed that his hemoglobin remains stable. - Discharge Data Discharge Date: 09/04/17 Discharge Disposition: Home, Self-Care 01 Condition: Good - Discharge Diagnosis/Problem(s) (1) GI bleed SNOMED Code(s): 83912617 ICD Code: K92.2 - GASTROINTESTINAL HEMORRHAGE, UNSPECIFIED Status: Acute Priority: High Current Visit: Yes Qualifiers: GI bleed type/associated pathology: unspecified gastrointestinal hemorrhage type Qualified Code(s): K92.2 - Gastrointestinal hemorrhage, unspecified (2) Anemia SNOMED Code(s): 467941125 ICD Code: D64.9 - ANEMIA, UNSPECIFIED Status: Acute Priority: High Current Visit: Yes Qualifiers: Anemia type: other cause Other causes of anemia: acute posthemorrhagic Qualified Code(s): D62 - Acute posthemorrhagic anemia (3) Status post endoscopy SNOMED Code(s): 381776059, 113141374 ICD Code: Z98.890 - OTHER SPECIFIED POSTPROCEDURAL STATES Status: Acute Priority: High Current Visit: Yes Problem Details: EGD and colonoscopy on - Patient Summary/Data Operative Procedure(s) Performed: 1. Diagnostic Esophagogastroduodenoscopy with cold forceps biopsy of the antrum. 2. Diagnostic Colonoscopy Consults: Consultations 09/02/17 19:54 Consult to Physician [CONS] Routine - Patient Instructions Diet: Heart Healthy Diet, Low Sodium, Drink 8-10+ Glasses/Day Activity: As Tolerated - Discharge Plan Home Medications: Home Meds Furosemide [Lasix] 20 mg PO DAILY 03/27/14 [History] Levothyroxine [Synthroid] 75 mcg PO DAILY 03/27/14 [History] Losartan [Cozaar] 50 mg PO DAILY 03/27/14 [History] Sertraline [Zoloft] 50 mg PO DAILY 03/27/14 [History] Gabapentin 600 mg PO BEDTIME 03/19/15 [History] Acetaminophen/Diphenhydramine [Tylenol Pm Ex-Strength Caplet] 2 tab PO BEDTIME 08/22/17 [History] Carvedilol [Coreg] 3.125 mg PO BID 08/22/17 [History] Clopidogrel [Plavix] 75 mg PO DAILY 08/22/17 [History] Docusate Sodium [Colace] 200 mg PO DAILY 08/22/17 [History] Ferrous Sulfate 325 mg PO DAILY 08/22/17 [History] Isosorbide Mononitrate [Ismo] 30 mg PO BEDTIME 08/22/17 [History] Magnesium Hydroxide [Milk of Magnesia] 5 ml PO DAILY PRN 08/22/17 [History] Pantoprazole [ProTONIX] 40 mg PO BID 08/22/17 [History] Rosuvastatin Calcium 20 mg PO DAILY 08/22/17 [History] Tamsulosin [Flomax] 0.4 mg PO BEDTIME 08/22/17 [History] Acetaminophen [Tylenol] 650 mg PO Q6H PRN #60 tablet 09/02/17 [Rx] Aspirin [Halfprin] 81 mg PO DAILY #30 tab.ec 09/02/17 [Rx] Patient Handouts: Coronary Artery Disease, Male, Gastrointestinal Bleeding, Chronic Kidney Disease, Iron Deficiency Anemia, Adult, [id number] Referrals: Rommel Mcduffie DO [Ordering Only Provider] - 10/22/17 11:40 am (Please follow- up with Dr. Mcduffie on September 21, at 1140 am. This appointment is in [place] at [facility], please arrive 15 minutes early and bring insurance cards & photo ID) Anton Jones MD [Primary Care Provider] - - Discharge Summary/Plan Comment DC Time >30 min.: Yes - General Info Date of Service: 09/04/17 Admission Dx/Problem (Free Text: Admission Diagnosis/Problem Admission Diagnosis/Problem Gastrointestinal hemorrhage Functional Status: Reports: Pain Controlled, Tolerating Diet, Ambulating, Urinating. Denies: New Symptoms - Review of Systems General: Reports: No Symptoms HEENT: Reports: No Symptoms Pulmonary: Reports: No Symptoms Cardiovascular: Reports: No Symptoms Gastrointestinal: Reports: No Symptoms Genitourinary: Reports: No Symptoms Musculoskeletal: Reports: No Symptoms Skin: Reports: No Symptoms Neurological: Reports: No Symptoms Psychiatric: Reports: No Symptoms - Patient Data Vitals - Most Recent: Last Vital Signs Temp 97.7 F 09/04/17 16:10 Pulse 65 09/04/17 16:10 Resp 18 09/04/17 16:10 BP 100/53 L 09/04/17 16:10 Pulse Ox 94 L 09/04/17 16:10 Weight - Most Recent: 102.829 kg I&O - Last 24 hours: Intake & Output 09/04/17 09/04/17 09/04/17 06:59 14:59 22:59 Intake Total 200 934 100 Output Total 140 Balance 60 934 100 Lab Results - Last 24 hrs: Laboratory Results - last 24 hr 09/03/17 09/04/17 09/04/17 Range/Units 06:03 07:00 16:50 WBC 9.47 H (4.23-9.07) K/mm3 RBC 3.23 L (4.63-6.08) M/mm3 Hgb 8.9 L 10.1 L (13.7-17.5) gm/L Hct 29.6 L 32.7 L (40.1-51.0) % MCV 91.6 (79.0-92.2) fl MCH 27.6 (25.7-32.2) pg MCHC 30.1 L (32.2-35.5) g/dl RDW Std Deviation 48.1 H (35.1-43.9) fL Plt Count 208 (163-337) K/mm3 MPV 10.0 (9.4-12.3) fl Neut % (Auto) 82.2 H (34.0-67.9) % Lymph % (Auto) 8.8 L (21.8-53.1) % [place] % (Auto) 8.0 (5.3-12.2) % Eos % (Auto) 0.3 L (0.8-7.0) Baso % (Auto) 0.1 (0.1-1.2) % Neut # (Auto) 7.78 H (1.78-5.38) K/mm3 Lymph # (Auto) 0.83 L (1.32-3.57) K/mm3 [place] # (Auto) 0.76 (0.30-0.82) K/mm3 Eos # (Auto) 0.03 L (0.04-0.54) K/mm3 Baso # (Auto) 0.01 (0.01-0.08) K/mm3 Manual Slide Review Abnormal smear Blood Type A POSITIVE Gel Antibody Screen Negative Crossmatch See Detail Med Orders - Current: Current Medications Acetaminophen (Tylenol) 650 mg PO Q6H PRN PRN Reason: Pain Aspirin (Halfprin) 81 mg PO DAILY [facility] Last Admin: 09/04/17 09:08 Dose: 81 mg Carvedilol (Coreg) 3.125 mg PO BID [facility] Last Admin: 09/04/17 09:07 Dose: 3.125 mg Clopidogrel Bisulfate (Plavix) 75 mg PO DAILY [facility] Last Admin: 09/04/17 09:03 Dose: 75 mg Docusate Sodium (Colace) 200 mg PO DAILY [facility] Last Admin: 09/04/17 09:01 Dose: 200 mg Ferrous Sulfate (Ferrous Sulfate) 325 mg PO DAILY [facility] Last Admin: 09/04/17 09:04 Dose: 325 mg Furosemide (Lasix) 20 mg PO DAILY [facility] Last Admin: 09/04/17 09:04 Dose: Not Given Gabapentin (Neurontin) 600 mg PO BEDTIME [facility] Last Admin: 09/03/17 20:24 Dose: 600 mg Hydralazine HCl (Apresoline) 10 mg IVPUSH Q2H PRN PRN Reason: Hypertension Isosorbide Mononitrate (Imdur) 30 mg PO BEDTIME [facility] Last Admin: 09/03/17 20:21 Dose: 30 mg Levothyroxine Sodium (Levothyroxine) 75 mcg PO DAILY [facility] Last Admin: 09/04/17 09:04 Dose: 75 mcg Losartan Potassium (Cozaar) 50 mg PO DAILY [facility] Last Admin: 09/04/17 09:02 Dose: 50 mg Magnesium Hydroxide (Milk Of Magnesia) 30 ml PO DAILY PRN PRN Reason: Constipation Ondansetron HCl (Zofran) 4 mg IV Q6H PRN PRN Reason: Nausea/Vomiting Last Admin: 09/03/17 03:14 Dose: 4 mg Pantoprazole Sodium (Protonix) 40 mg PO BID [facility] Last Admin: 09/04/17 09:01 Dose: 40 mg Acetaminophen/Diphenhydramine 2 Tab 0 each PO BEDTIME [facility] Last Admin: 09/03/17 20:27 Dose: Not Given Rosuvastatin Calcium (Crestor) 20 mg PO DAILY [facility] Last Admin: 09/04/17 09:02 Dose: 20 mg Sertraline HCl (Zoloft) 50 mg PO DAILY [facility] Last Admin: 09/04/17 09:08 Dose: 50 mg Sodium Chloride (Saline Flush) 10 ml FLUSH ASDIRECTED PRN PRN Reason: Keep Vein Open Last Admin: 09/03/17 03:15 Dose: 10 ml Tamsulosin HCl (Flomax) 0.4 mg PO BEDTIME [facility] Last Admin: 09/03/17 20:24 Dose: 0.4 mg Discontinued Medications Bisacodyl (Dulcolax) 30 mg PO ONETIME ONE Stop: 09/02/17 21:14 Last Admin: 09/02/17 21:52 Dose: 30 mg Diatrizoate Meglum/Diatrizoate Sod (Gastrografin 37%) 90 ml PO ONETIME ONE Stop: 09/02/17 17:40 Last Admin: 09/02/17 18:26 Dose: 90 ml Fentanyl (Sublimaze) Confirm Administered Dose 100 mcg .ROUTE .STK-MED ONE Stop: 09/03/17 10:07 Sodium Chloride (Normal Saline) 1,000 mls @ 125 mls/hr IV ASDIRECTED [facility] Last Admin: 09/02/17 17:04 Dose: 125 mls/hr Dextrose/Sodium Chloride (Dextrose 5%-Normal Saline) 1,000 mls @ 100 mls/hr IV ASDIRECTED [facility] Last Admin: 09/03/17 14:52 Dose: 100 mls/hr Lidocaine HCl (Xylocaine-Mpf 1%) Confirm Administered Dose 4 mls @ as directed .ROUTE .STK-MED ONE Stop: 09/03/17 10:06 Sodium Chloride (Normal Saline) Confirm Administered Dose 100 mls @ as directed .ROUTE .STK-MED ONE Stop: 09/04/17 11:31 Magnesium Citrate (Citrate Of Magnesia) 296 ml PO ONETIME ONE Stop: 09/02/17 21:15 Last Admin: 09/02/17 21:53 Dose: 296 ml Morphine Sulfate (Morphine) 2 mg IVPUSH Q2H PRN PRN Reason: Pain (severe 7-10) Stop: 09/03/17 20:02 Pantoprazole Sodium (Protonix Iv) 40 mg IV Q12HR [facility] Last Admin: 09/03/17 11:29 Dose: 40 mg Polyethylene Glycol/Electrolytes (Golytely) 4,000 ml PO ONETIME ONE Stop: 09/02/17 20:13 Last Admin: 09/02/17 21:46 Dose: Not Given Propofol (Diprivan 20 Ml) Confirm Administered Dose 200 mg .ROUTE .STK-MED ONE Stop: 09/03/17 10:06 - Exam General: Reports: Alert, Oriented HEENT: Reports: Pupils Equal, Pupils Reactive, EOMI, Mucous Membr. Moist/[place] Neck: Reports: Supple Lungs: Reports: Clear to Auscultation, Normal Respiratory Effort Cardiovascular: Reports: Regular Rate, Regular Rhythm GI/Abdominal Exam: Normal Bowel Sounds, Soft, Non-Tender, No Organomegaly, No Distention, No Abnormal Bruit, No Mass, Pelvis Stable (Male) Exam: Deferred Rectal (Males) Exam: Deferred Back Exam: Reports: Normal Inspection, Full Range of Motion Extremities: Normal Inspection, Normal Range of Motion, Non-Tender, No Pedal Edema, Normal Capillary Refill Skin: Reports: Warm, Dry, Intact Wound/Incisions: Reports: Healing Well Neurological: Reports: No New Focal Deficit Psy/Mental Status: Reports: Alert, Normal Affect, Normal Mood *Q Meaningful Use (DIS) - VTE *Q VTE Criteria *Q: - Stroke *Q Stroke Criteria *Q: - AMI *Q AMI Criteria *Q:
== END 2017-09-04 18:40 | disposition home or self-care (01) | DRG 378 ==
LOC: JD.ED 16:24 → JD.ICU 19:47 → JD.MS 09-03 14:39
PROVIDERS: ADMIT Hospitalist; ATTEND Hospitalist
PROC: 0DB68ZX Excision of Stomach, Via Natural or Artificial Opening Endoscopic, Diagnostic (ICD-10-PCS; principal; 2017-09-03)
PROC: 0DJD8ZZ Inspection of Lower Intestinal Tract, Via Natural or Artificial Opening Endoscopic (ICD-10-PCS; 2017-09-03)
PROC: 30233N1 Transfusion of Nonautologous Red Blood Cells into Peripheral Vein, Percutaneous Approach (ICD-10-PCS; 2017-09-03)
DX: K92.1 Melena (principal); D64.89 Other specified anemias; N29 Other disorders of kidney and ureter in diseases classified elsewhere; K92.2 Gastrointestinal hemorrhage, unspecified; D62 Acute posthemorrhagic anemia; K29.60 Other gastritis without bleeding; K57.30 Diverticulosis of large intestine without perforation or abscess without bleeding; K64.4 Residual hemorrhoidal skin tags; I25.10 Atherosclerotic heart disease of native coronary artery without angina pectoris; I10 Essential (primary) hypertension; Z95.5 Presence of coronary angioplasty implant and graft; Z87.891 Personal history of nicotine dependence; E78.00 Pure hypercholesterolemia, unspecified; K21.9 Gastro-esophageal reflux disease without esophagitis; N40.0 Benign prostatic hyperplasia without lower urinary tract symptoms; E03.9 Hypothyroidism, unspecified; F32.9 Major depressive disorder, single episode, unspecified; E66.9 Obesity, unspecified; Z68.30 Body mass index [BMI] 30.0-30.9, adult; Z86.711 Personal history of pulmonary embolism; H54.7 Unspecified visual loss; Z96.641 Presence of right artificial hip joint; Z79.82 Long term (current) use of aspirin; Z79.02 Long term (current) use of antithrombotics/antiplatelets; Z79.899 Other long term (current) drug therapy; Z66 Do not resuscitate
CPT/HCPCS: 36415; 74176; 80053; 81001; 83690; 85025; 87086; 96360; 96361; 99285; J7040; J7050; Q9963; 00740; 36430; 80048; 82962; 85014; 85018; 86850; 86900; 86901; 86922; 88305; 88342; A9270-GY; C9113; J2405; J2704; J3010; J7030; J7042; P9016